=== PATIENT | male | born 1965 | race Caucasian/White ===

== ENCOUNTER 2018-10-22 14:09 | Emergency (ER) | payer OTHER, SELFPAY ==
[2018-10-22 14:17] VITALS: BP 122/77; PULSE 80; RESP 18; TEMP 36.7; O2SAT 95
--- NOTE | 2018-10-22 15:45 | ED.GENADUL_ITS ---
Discharge Plan Disposition Patient Disposition: HOME Condition: Stable Discharge Details Chief Complaint: Cellulitis Clinical Impression: Acute anal fissure Primary Care Provider: Trent Herron ED Provider: Lois Gordillo Home Meds and New Rx's Prescriptions: New pramoxine [Proctofoam] 1 % foam 1 applic [place] BID Qty: 15 RF: 0 amoxicillin-pot clavulanate [Augmentin] 875-125 mg tablet 1 tab PO BID 10 Days Qty: 20 RF: 0 docusate sodium [Colace] 100 mg capsule 100 mg PO BID Qty: 10 RF: 0 Continue omeprazole magnesium [Prilosec OTC] 20 MG tablet,delayed release (DR/EC) 20 mg PO DAILY RF: 0 lisinopril 10 mg tablet 10 mg PO DAILY Qty: 90 RF: 4 epinephrine 0.3 MG/SYR auto-injector 0.3 mg IJ PRN PRN (Reason: Anaphylaxis) Qty: 1 RF: 0 Discharge Instructions Instructions: Anal Fissure (ED) Additional Instructions: Keep area as clean and dry as possible. Apply the Proctofoam as directed. If you develop any worsening pain, redness, swelling or fever, start the oral antibiotics or return immediately to the emergency department. Follow-up with your scheduled appointment with your primary care doctor on Wednesday. Call surgery Dr. Knott Wednesday morning to schedule follow-up appointment for reevaluation as needed. Discharge Data Discharge Date/Time-TO BE ENTERED AT DEPARTURE: 10/22/18 15:56 Discharge Physician: Lois Gordillo Medical Decision Making 53-year-old male with a history of anal fissures and external thrombosed hemorrhoids who presents with anal fissure and rectal pain for the past 2 weeks. Vitals within normal limits. Afebrile. Patient appears nontoxic. Abdomen soft and nontender. There is a 4 mm fissure with surrounding mild edema and tenderness to palpation but no obvious induration, fluctuance, red streaking. No hemorrhoids noted. No rectal bleeding or pus noted. There is a slight whitish clearish mucousy discharge noted when palpating the anal fissure area. Patient does not want lab work or CAT scan. Patient states he is only requesting evaluation and would like a prescription for Proctofoam and has appointment with his primary care doctor on Wednesday. Discussed with patient that as he had some discharge a few days ago, concern would be for deeper space infection. However patient appears nontoxic, is afebrile, and has no evidence of abscess or cellulitis around site, so we engaged in a shared decision making process that this plan is reasonable at this time. Will call surgery for recommendations. Discussed with lili Warren -agrees with plan for Proctofoam and does not see utility of oral antibiotics at this time. Recommends follow-up with surgery. We will send home with prescription for Colace and Proctofoam. Patient was instructed to return here immediately with any worsening symptoms. Pt states he is traveling to [place] in the next 2 weeks. He is also given a prescription for Augmentin to start if he has any mild signs of infection and is unable or does not want to return to the emergency department. HPI General Mode of arrival: ambulatory . Date/Time Provider Initiated Documentation: 10/22/18 14:39 . Limitations to Documentation: no limitations . Information obtained by: patient . HPI Narrative: Patient is a 53-year-old male with a history of chronic anal fissures who presents for rectal pain for the past 2 weeks. Patient states he was getting in and out of his truck and lifting and carrying things when he felt sudden rectal pain 2 weeks ago. Patient states he has had consistent pain since then and worse over the past few days. Patient states he has seen his primary care doctor and surgery for this for years and has had hemorrhoidectomy with Dr. Knott as well. Patient states the pain extends from the external area up into his tailbone. He states he has been having small bowel movements but with pain. He is not taking any stool softeners. He admits to some bloody mucus that is noted at times. Patient states he sat in a tub with epsom salts the other day to help with his symptoms and noted some blood and possible white discharge. Patient states he has been eating and drinking well. He also admits to some mild lower abdominal pain for the past 3 days. He denies any known fever or urinary symptoms. He states he has an appointment with his primary care doctor on Wednesday but did not want to wait till then. Patient states he just feels like he needs a prescription for Proctofoam to help with the pain Related Data Home Medications Medication Instructions Recorded Confirmed epinephrine 0.3 mg IJ PRN PRN #1 kit 10/26/16 10/22/18 omeprazole magnesium [Prilosec OTC] 20 mg PO DAILY 12/25/16 10/22/18 lisinopril 10 mg tablet 10 mg PO DAILY #90 tab-cap 18 10/22/18 amoxicillin-pot clavulanate 1 tab PO BID 10 Days #20 tab 10/22/18 [Augmentin] docusate sodium [Colace] 100 mg PO BID #10 cap 10/22/18 pramoxine [Proctofoam] 1 applic [place] BID #15 gm 10/22/18 Previous Rx's Medication Instructions Recorded epinephrine 0.3 mg IJ PRN PRN #1 kit 10/26/16 lisinopril 10 mg tablet 10 mg PO DAILY #90 tab-cap 08/09/18 amoxicillin-pot clavulanate 1 tab PO BID 10 Days #20 tab 10/22/18 [Augmentin] docusate sodium [Colace] 100 mg PO BID #10 cap 10/22/18 pramoxine [Proctofoam] 1 applic MT BID #15 gm 10/22/18 Allergies Allergy/AdvReac Type Severity Reaction Status Date / Time shellfish derived Allergy Unknown Unverified 10/22/18 14:20 General Stated Complaint: Cellulitis ALMAZ: 3 Review of Systems Review of Systems All systems reviewed & are unremarkable except as noted in HPI and below Constitutional Reports as per HPI, Denies chills and Denies fever(s) Eyes Denies blurry vision ENT Denies dizziness, Denies sore throat and Denies throat swelling Cardiovascular Denies chest pain and Denies dyspnea Respiratory Denies dyspnea Gastrointestinal Reports abdominal pain, Denies diarrhea and Denies vomiting Genitourinary Denies hematuria and Denies dysuria Musculoskeletal Denies back pain and Denies numbness Integumentary/Breasts Denies lesions and Denies rash Neurologic Denies dizziness and Denies numbness Allergic/Immunologic Denies throat swelling PFSH GERD (gastroesophageal reflux disease) (Chronic) HTN (hypertension) (Chronic) Repair of umbilical hernia Spinal Fusion (~2006) Tonsillectomy and adenoidectomy Medical History GERD (gastroesophageal reflux disease) (Chronic) HTN (hypertension) (Chronic) Social History Smoking/Tobacco Use Status: Current-Occasional Surgical History Repair of umbilical hernia Spinal Fusion (~2006) Tonsillectomy and adenoidectomy Social History Smoking/Tobacco Use Status: Current-Occasional Exam Const General: cooperative, healthy appearing and no acute distress HENMT Head: normal to inspection Mouth: oral mucosae normal Eyes General: appearance normal, both eyes and all related structures Neck Neck: normal visual inspection Resp Effort & Inspection: normal respiratory effort and able to speak in complete sentences Auscultation: clear to auscultation bilaterally Cardio Rate: regular rate Rhythm: regular rhythm GI Palpation: soft, not firm and nontender Auscultation: normal bowel sounds Rectal Exam: normal sphincter tone (pain with limited digital exam just inside anal margin. ), fissure (3-4 mm fissure noted to the right of midline around anus. There is very mild surrounding edema but no erythema, fluctuance, induration or obvious abscess. When palpating the area around the fistula, there is noted to be a minimal white discharge but no obvious pus. No hemorrhoids. ) and other (stool color brown) Penis: normal penis Scrotum: scrotum normal Testes: normal Skin General skin exam: no rashes or lesions noted Neuro General: alert, awake and oriented x3 Motor: muscle tone normal throughout Extrem General: normal to inspection and full ROM Psych Appearance: grossly normal Affect: normal affect Course Vital Signs Temperature 98.1 F 10/22/18 14:17 Pulse 80 10/22/18 14:17 Respiratory Rate 18 10/22/18 14:17 Blood Pressure 122/77 10/22/18 14:17 Pulse Oximetry 95 10/22/18 14:17 Temperature 98.1 F 10/22/18 14:17 Temperature Source Skin 10/22/18 14:17 Pulse 80 10/22/18 14:17 Respiratory Rate 18 10/22/18 14:17 Blood Pressure 122/77 10/22/18 14:17 Blood Pressure Position Sitting 10/22/18 14:17 Pulse Oximetry 95 10/22/18 14:17 Oxygen Delivery Method Room Air 10/22/18 14:17 Oxygen Flow Rate 0 10/22/18 14:17 Pain Level 6 10/22/18 14:17 Comment 10/22/18 14:17
== END 2018-10-22 15:56 | disposition home or self-care (01) ==
PROVIDERS: Emergency Provider Physician Assistant; PCP Emergency Medicine
DX: K60.0 Acute anal fissure (principal); I10 Essential (primary) hypertension
CPT/HCPCS: 99283

== ENCOUNTER 2019-01-04 08:49 | Day surgery (SDC) | payer OTHER, SELFPAY ==
--- NOTE | 2019-01-04 06:57 | W.COLOREPORT ---
Date of service: 01/04/19 Time of Service: 10:00 Colonoscopy Report Date of procedure: 01/04/19 Pre-op diagnosis general: Colon Cancer screening/ foreign body? Post-op diagnosis procedure note: same Procedure: 1. Colonoscopy 2. Anal foreign body ? stitch Surgeon: Kate Wiley Anesthesia proc note operative: other (general) Estimated blood loss (mL): 5 Pathology: none sent Complications: None Disposition: same day Indications: Mr. aKy was seen in the office for a screening colonoscopy. He also has an area at the anal verge that swells up every so often and is painfull. He underwent a hemorrhoidectomy with Dr. whitmore. There is ? whether maybe there is a stitch that never dissolved. I will look for it after his colonoscopy. Risks, benefits and complications have been reviewed. Complications include but are not limited to bleeding, pain, perforation, missed small lesion/polyp, sore throat, aspiration and adverse reaction to the medications. Questions were entertained and answered to their satisfaction and they wished to proceed. No guarantees were given or implied. Prep: Miralax/Dulcolax Procedure Start Time: 10:00 Procedure End Time: 10:18 Retraction Time: 9 minutes Findings: Normal colonoscopy Scar tissue vs small stitch at the anal verge here he had his hemorrhoidectomy. Procedure Description: After informed consent was obtained the patient was taken to the procedure room and placed in a left decubitous position. Monitors were applied and a time out was done. The patients name, date of , procedure, allergies to medications and metal in their body was reviewed. The patient was then sedated. Once sedated and comfortable 6 cc of experel was injected in the area of scarring and nodule. Next a rectal exam was done. External exam was normal. Internal exam revealed a normal sphincter tone and no palpable masses. The prostate was smooth. The scope was then introduced and retro-flexed. No internal hemorrhoids were identified. The scope was then advanced to the cecum with some difficulty due to some tortuousity. The TI and appendiceal orifice were identified. The prep was good. The scope was then slowly retracted over 9 minutes back into the rectum. No polyps noted and no diverticulosis. The scope was removed. The nodule was palpated and an elliptical incision was made around it. I felt what I think was a stitch and removed it with scissors. I then felt around and couldn't feel anything else. The wound was closed with 3-0 cat gut to make sure that it will dissolve rapidly. The skin was cleaned and dried and the patient was woken up and taken back to Same day surgery in stable condition. The patient tolerated the procedure well and there were no immediate complications. Follow up: The patient should follow up in 10 years unless they develop changes in bowel habits or other new gastrointestinal complaints.
--- NOTE | 2019-01-04 07:02 | PDOC.DSDIS_ITS ---
Discharge Plan Disposition Patient Disposition: HOME Condition: Good Discharge Details Reason For Visit: Colon Cancer screening/ anal foreign body Attending Provider: Kate Wiley Primary Care Provider: Trent Herron Home Meds and New Rx's Prescriptions: Continued psyllium husk [Metamucil] 0.52 gram capsule 0.52 gm PO DAILY RF: 0 Prilosec OTC 20 MG tablet,delayed release (DR/EC) 20 mg PO DAILY RF: 0 lisinopril 10 mg tablet 10 mg PO DAILY Qty: 90 RF: 4 pramoxine [Proctofoam] 1 % foam 1 applic [place] BID Qty: 15 RF: 3 epinephrine 0.3 MG/SYR auto-injector 0.3 mg IJ PRN PRN (Reason: Anaphylaxis) Qty: 1 RF: 0 docusate sodium [Colace] 100 mg capsule 100 mg PO BID PRNRF: 0 cannabidiol (CBD) extract 100 mg/mL Solution 100 mg PO DAILY RF: 0 Discontinued polyethylene glycol 3350 17 gram powder in packet 255 g PO DAILY Qty: 15 RF: 0 bisacodyl [Dulcolax (bisacodyl)] 5 mg tablet,delayed release (DR/EC) 5 mg PO ONCE Qty: 4 RF: 0 Discharge Instructions Instructions: Colonoscopy (DC) Additional Instructions: Findings: normal large bowel Scar tissue vs small stitch Follow up: 10 years for your next colonoscopy 4 weeks in the office Other: sitz baths for pain Ibuprofen 600 mg very 6 hours as needed, may alternate with Tylenol 650 mg every 6 hours Please call if you develop: fevers >101.5 Nausea or Vomiting Abdominal pain that is not transient DAY SURGERY UNIT POST COLONOSCOPY INSTRUCTIONS 1. Because there will be medication in your system for the next 24 hours, you may feel a little sleepy. Your coordination will be affected. Therefore: a. Do not drive or operate dangerous equipment for 24 hours. b. Do not drink alcohol beverages for 24 hours (not even beer). c. Plan to go home and rest for the day. 2. Generally there are no restrictions on your activity after a day or so has gone by, but you may feel a bit fatigued for a few days. 3 After you arrive home you may have a light meal and return to a normal diet as you can tolerate it without feeling sick to your stomach. 4. After surgery, you may feel pain or discomfort. This should be only transient, but if it persists please contact your doctor. 5. If there are any questions regarding the findings of your procedure, please feel free to contact your doctor. 6. If you are unable to contact your doctor with a problem, contact the hospital at [phone]. 7. Continue all your regular medications unless directed otherwise. I understand the above instructions and have no questions. Signature of Patient or Responsible Adult Escort Date/Time Name of Responsible Adult Escort Signature of Nurse Date/Time Referrals: Kate iWley MD [ [facility] STAFF PHYSICIAN] - 01/31/19 1:00 pm Activity:: Activity as Tolerated Diet:: As Tolerated Discharge Orders Discharge Orders: Discharge Order (Routine); Ordered 01/04/19 Ordered By: Kate Wiley DS: Diagnosis Discharge Diagnosis (1) S/P colonoscopy: Status: Acute (2) Foreign body (FB) in soft tissue: Status: Acute
[2019-01-04 09:00] VITALS: BP 145/97; PULSE 69; RESP 20; TEMP 36.2; O2SAT 95
[2019-01-04] MEDS: Lactated Ringers 1,000 ML 80 ML IV (09:26)
[2019-01-04] MEDS: MetroNIDAZOLE 500 MG/100 ML BAG 100 MG IVPB (09:27)
[2019-01-04] MEDS: Bupivacaine LIPOSOME/PF 133 MG/10 ML VIAL IJ ×2 (09:59→10:28)
[2019-01-04 11:10] VITALS: BP 92/46; PULSE 51; RESP 20; TEMP 36.6; O2SAT 98
[2019-01-04 11:15] VITALS: BP 99/52; PULSE 55; RESP 22; O2SAT 94
[2019-01-04 11:30] VITALS: BP 108/67; PULSE 74
[2019-01-04 11:51] VITALS: BP 126/81; PULSE 84; RESP 20; TEMP 36.3; O2SAT 99
== END 2019-01-04 12:30 | disposition home or self-care (01) ==
PROVIDERS: PCP Emergency Medicine; Visit Provider Surgery
PROC: 0DJD8ZZ Inspection of Lower Intestinal Tract, Via Natural or Artificial Opening Endoscopic (ICD-10-PCS; CPT 45378; principal; 2019-01-04 09:45)
DX: Z12.11 Encounter for screening for malignant neoplasm of colon (principal); M79.5 Residual foreign body in soft tissue
CPT/HCPCS: 46922; 45378; J0360; J2250

== ENCOUNTER 2019-01-08 08:54 | Emergency (ER) | payer OTHER, SELFPAY ==
[2019-01-08 09:14] VITALS: BP 156/95; PULSE 72; RESP 20; TEMP 36.8
--- NOTE | 2019-01-08 09:56 | DI.CT_ITS ---
SYMPTOMS/DIAGNOSIS: RECTAL PAIN, ? ABSCESS CT OF THE ABDOMEN AND PELVIS: Images were performed from the lung bases through the ischial tuberosities after IV and without oral contrast. The lung bases are clear. There is mild fatty infiltration of the liver. The visualized portions of the heart are unremarkable. The gallbladder, spleen, pancreas and adrenals are unremarkable. There are bilateral renal cysts. There is no bowel dilatation or inflammatory change. There is no evidence of free air or free fluid. There is no evidence of an abscess. The aorta is normal in diameter. No adenopathy is seen. There is L5 spondylolysis and grade 1 L5-S1 spondylolisthesis. There is a chronic- appearing compression fracture of T10. The bladder is nearly empty. The prostate does not appear enlarged. IMPRESSION: No acute abnormality.
--- NOTE | 2019-01-08 09:58 | W.ED.GENAD ---
Discharge Plan Disposition Patient Disposition: HOME Condition: Stable Discharge Details Chief Complaint: GI Bleed Clinical Impression: Pain, rectal Primary Care Provider: Trent Herron ED Provider: Kike Hoffman Home Meds and New Rx's Prescriptions: New lidocaine 4 % cream 1 applic TP QID PRN (Reason: pain) Qty: 25 RF: 0 Continued psyllium husk [Metamucil] 0.52 gram capsule 0.52 gm PO DAILY RF: 0 Prilosec OTC 20 MG tablet,delayed release (DR/EC) 20 mg PO DAILY RF: 0 lisinopril 10 mg tablet 10 mg PO DAILY Qty: 90 RF: 4 pramoxine [Proctofoam] 1 % foam 1 applic [place] BID Qty: 15 RF: 3 epinephrine 0.3 MG/SYR auto-injector 0.3 mg IJ PRN PRN (Reason: Anaphylaxis) Qty: 1 RF: 0 docusate sodium [Colace] 100 mg capsule 100 mg PO BID PRNRF: 0 cannabidiol (CBD) extract 100 mg/mL Solution 100 mg PO DAILY RF: 0 Discharge Instructions Additional Instructions: continue to perform sitz baths. You can use 1000mg tylenol and 600mg ibuprofen every 6 hours for pain as needed Follow up with general surgery who performed your colonoscopy If you develop fevers, severe abdominal pain or significant rectal bleeding return to the emergency department Medical Decision Making 53 yo male has had chronic issues with discharge from his rectum. Had a hemorrhoidectomy in 2017 and thinks that this is when it all started. He had a colonoscopy this past week with Dr. Rose where it says she removed a stitch at the rectum. He has had pain at the rectum since. He has a small 1mm incision with brown drainage at the rectum. No hemorrhoids, no internal abnormalities palpated and no abdominal tenderness, guaic negative. I suspect small abscess vs fistual. Will obtain ct to eval for possible deeper abscess labs and imaging unremarkable, he states lidocaine significantly improved his pain. will prescribe this and have him f/u with surgery as outpatient, return precautions given. given no fever, no leukocytosis or erythema will hold on abx at this time Differential Diagnosis abscess, fissure, hemorrhoid HPI General Mode of arrival: ambulatory. Date/Time Provider Initiated Documentation: 01/08/19 09:23. Limitations to Documentation: no limitations. Information obtained by: patient. History of Present Illness 53 year old M presents to the emergency department with the chief complaint of rectal pain, described as moderate, with intensity rated at 5. Quality is described as aching, Patient started experiencing this week(s) (2) and it has been constant. No relieving factors improve symptom(s), No exacerbating factors reported . Patient notes no other symptoms.. Patient did receive the following treatments prior to arrival, none Related Data Home Medications Medication Instructions Recorded Confirmed epinephrine 0.3 mg IJ PRN PRN #1 kit 10/26/16 01/08/19 Prilosec OTC 20 mg PO DAILY 12/25/16 01/08/19 lisinopril 10 mg tablet 10 mg PO DAILY #90 tab-cap 08/09/18 01/08/19 psyllium husk 0.52 gram capsule 0.52 gm PO DAILY 11/21/18 01/08/19 pramoxine 1 % topical foam 1 applic [place] BID #15 gm 11/25/18 01/08/19 docusate sodium [Colace] 100 mg PO BID PRN 12/30/18 01/08/19 cannabidiol (CBD) extract 100 mg PO DAILY 01/04/19 01/08/19 lidocaine 1 applic TP QID PRN #25 gm 01/08/19 Previous Rx's Medication Instructions Recorded epinephrine 0.3 mg IJ PRN PRN #1 kit 10/26/16 lisinopril 10 mg tablet 10 mg PO DAILY #90 tab-cap 08/09/18 pramoxine 1 % topical foam 1 applic [place] BID #15 gm 11/25/18 lidocaine 1 applic TP QID PRN #25 gm 01/08/19 Allergies Allergy/AdvReac Type Severity Reaction Status Date / Time shellfish derived Allergy Unknown Verified 01/08/19 09:18 General Stated Complaint: GI Bleed ALMAZ: 3 Review of Systems Review of Systems All systems reviewed & are unremarkable except as noted in HPI and below Constitutional Denies chills, Denies fever(s) and Denies weakness ENT Denies change in voice Cardiovascular Denies chest pain and Denies dyspnea Respiratory Denies cough and Denies dyspnea Gastrointestinal Denies abdominal pain, Denies nausea and Denies vomiting Musculoskeletal Denies joint swelling Neurologic Denies weakness Allergic/Immunologic Denies urticaria [facility] Medical History Foreign body (FB) in soft tissue (Acute ~01/04/19) H/O hemorrhoids (Acute) GERD (gastroesophageal reflux disease) (Chronic) HTN (hypertension) (Chronic) Surgical History S/P colonoscopy (Acute ~01/04/19) S/P hemorrhoidectomy (Acute) Repair of umbilical hernia Spinal Fusion (~2006) Tonsillectomy and adenoidectomy Social History 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 occupational status: employed 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 Smoking and Tabacco status: Former Tobacco Use alcohol intake: current alcohol intake frequency: a few times a month Alcohol type: beer substance use type: does not use Exam Const General: no acute distress Orientation: alert HENMT Head: normal to inspection Ears: external ears normal General nose exam: external nose normal Mouth: moist mucous membranes Eyes General: appearance normal, both eyes and all related structures Neck Neck: normal visual inspection Resp Effort & Inspection: normal respiratory effort and able to speak in complete sentences Cardio Rate: regular rate GI Inspection: normal to inspection Palpation: soft Skin General skin exam: no rashes or lesions noted Neuro General: alert and oriented x3 Extrem General: normal to inspection Psych Mental Status: mental status grossly normal Course Vital Signs Temperature 36.8 C 01/08/19 09:14 Pulse 72 01/08/19 09:14 Respiratory Rate 20 01/08/19 09:14 Blood Pressure 156/95 H 01/08/19 09:14 Temperature 36.8 C 01/08/19 09:14 Temperature Source Temporal Artery Scan 01/08/19 09:14 Pulse 72 01/08/19 09:14 Respiratory Rate 20 01/08/19 09:14 Respiratory Effort Non-Labored 01/08/19 09:14 Blood Pressure 156/95 H 01/08/19 09:14 Blood Pressure Position Standing 01/08/19 09:14 Oxygen Delivery Method Room Air 01/08/19 09:14 Oxygen Flow Rate 0 01/08/19 09:14 Pain Level 6 01/08/19 09:18
--- NOTE | 2019-01-08 10:02 | ED.GENADUL_ITS ---
Discharge Plan Disposition Patient Disposition: HOME Condition: Stable Discharge Details Chief Complaint: GI Bleed Clinical Impression: Pain, rectal Primary Care Provider: Trent Herron ED Provider: Kike Hoffman Home Meds and New Rx's Prescriptions: New lidocaine 4 % cream 1 applic TP QID PRN (Reason: pain) Qty: 25 RF: 0 Continued psyllium husk [Metamucil] 0.52 gram capsule 0.52 gm PO DAILY RF: 0 Prilosec OTC 20 MG tablet,delayed release (DR/EC) 20 mg PO DAILY RF: 0 lisinopril 10 mg tablet 10 mg PO DAILY Qty: 90 RF: 4 pramoxine [Proctofoam] 1 % foam 1 applic TN BID Qty: 15 RF: 3 epinephrine 0.3 MG/SYR auto-injector 0.3 mg IJ PRN PRN (Reason: Anaphylaxis) Qty: 1 RF: 0 docusate sodium [Colace] 100 mg capsule 100 mg PO BID PRNRF: 0 cannabidiol (CBD) extract 100 mg/mL Solution 100 mg PO DAILY RF: 0 Discharge Instructions Additional Instructions: continue to perform sitz baths. You can use 1000mg tylenol and 600mg ibuprofen every 6 hours for pain as needed Follow up with general surgery who performed your colonoscopy If you develop fevers, severe abdominal pain or significant rectal bleeding return to the emergency department Medical Decision Making 53 yo male has had chronic issues with discharge from his rectum. Had a hemorrhoidectomy in 2017 and thinks that this is when it all started. He had a colonoscopy this past week with Dr. Rose where it says she removed a stitch at the rectum. He has had pain at the rectum since. He has a small 1mm incision with brown drainage at the rectum. No hemorrhoids, no internal abnormalities palpated and no abdominal tenderness, guaic negative. I suspect small abscess vs fistual. Will obtain ct to eval for possible deeper abscess labs and imaging unremarkable, he states lidocaine significantly improved his pain. will prescribe this and have him f/u with surgery as outpatient, return precautions given. given no fever, no leukocytosis or erythema will hold on abx at this time Differential Diagnosis abscess, fissure, hemorrhoid HPI General Mode of arrival: ambulatory . Date/Time Provider Initiated Documentation: 01/08/19 09:23 . Limitations to Documentation: no limitations . Information obtained by: patient . History of Present Illness 53 year old M presents to the emergency department with the chief complaint of rectal pain, described as moderate, with intensity rated at 5. Quality is described as aching, Patient started experiencing this week(s) (2) and it has been constant. No relieving factors improve symptom(s), No exacerbating factors reported . Patient notes no other symptoms.. Patient did receive the following treatments prior to arrival, none Related Data Home Medications Medication Instructions Recorded Confirmed epinephrine 0.3 mg IJ PRN PRN #1 kit 10/26/16 01/08/19 Prilosec OTC 20 mg PO DAILY 12/25/16 01/08/19 lisinopril 10 mg tablet 10 mg PO DAILY #90 tab-cap 08/09/18 01/08/19 psyllium husk 0.52 gram capsule 0.52 gm PO DAILY 11/21/18 01/08/19 pramoxine 1 % topical foam 1 applic TN BID #15 gm 11/25/18 01/08/19 docusate sodium [Colace] 100 mg PO BID PRN 12/30/18 01/08/19 cannabidiol (CBD) extract 100 mg PO DAILY 01/04/19 01/08/19 lidocaine 1 applic TP QID PRN #25 gm 01/08/19 Previous Rx's Medication Instructions Recorded epinephrine 0.3 mg IJ PRN PRN #1 kit 10/26/16 lisinopril 10 mg tablet 10 mg PO DAILY #90 tab-cap 08/09/18 pramoxine 1 % topical foam 1 applic TN BID #15 gm 11/25/18 lidocaine 1 applic TP QID PRN #25 gm 01/08/19 Allergies Allergy/AdvReac Type Severity Reaction Status Date / Time shellfish derived Allergy Unknown Verified 01/08/19 09:18 General Stated Complaint: GI Bleed ALMAZ: 3 Review of Systems Review of Systems All systems reviewed & are unremarkable except as noted in HPI and below Constitutional Denies chills, Denies fever(s) and Denies weakness ENT Denies change in voice Cardiovascular Denies chest pain and Denies dyspnea Respiratory Denies cough and Denies dyspnea Gastrointestinal Denies abdominal pain, Denies nausea and Denies vomiting Musculoskeletal Denies joint swelling Neurologic Denies weakness Allergic/Immunologic Denies urticaria [facility] Medical History Foreign body (FB) in soft tissue (Acute ~01/04/19) H/O hemorrhoids (Acute) GERD (gastroesophageal reflux disease) (Chronic) HTN (hypertension) (Chronic) Surgical History S/P colonoscopy (Acute ~01/04/19) S/P hemorrhoidectomy (Acute) Repair of umbilical hernia Spinal Fusion (~2006) Tonsillectomy and adenoidectomy Social History current occupational status: employed 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 Smoking and Tabacco status: Former Tobacco Use alcohol intake: current alcohol intake frequency: a few times a month Alcohol type: beer substance use type: does not use Exam Const General: no acute distress Orientation: alert HENMT Head: normal to inspection Ears: external ears normal General nose exam: external nose normal Mouth: moist mucous membranes Eyes General: appearance normal, both eyes and all related structures Neck Neck: normal visual inspection Resp Effort & Inspection: normal respiratory effort and able to speak in complete sentences Cardio Rate: regular rate GI Inspection: normal to inspection Palpation: soft Skin General skin exam: no rashes or lesions noted Neuro General: alert and oriented x3 Extrem General: normal to inspection Psych Mental Status: mental status grossly normal Course Vital Signs Temperature 36.8 C 01/08/19 09:14 Pulse 72 01/08/19 09:14 Respiratory Rate 20 01/08/19 09:14 Blood Pressure 156/95 H 01/08/19 09:14 Temperature 36.8 C 01/08/19 09:14 Temperature Source Temporal Artery Scan 01/08/19 09:14 Pulse 72 01/08/19 09:14 Respiratory Rate 20 01/08/19 09:14 Respiratory Effort Non-Labored 01/08/19 09:14 Blood Pressure 156/95 H 01/08/19 09:14 Blood Pressure Position Standing 01/08/19 09:14 Oxygen Delivery Method Room Air 01/08/19 09:14 Oxygen Flow Rate 0 01/08/19 09:14 Pain Level 6 01/08/19 09:18
[2019-01-08 10:18] LABS: Abs Immature Grans 0.02 k/cumm (0.0-0.09); Absolute Basophil Count 0.06 k/cumm (0.0-0.2); Absolute Eosinophil Count 0.31 k/cumm (0.0-0.7); Absolute Lymphocyte Count 2.27 k/cumm (1.2-3.4); Absolute Monocyte Count 0.72 k/cumm (0.11-0.7); Absolute Neutrophil Count 3.89 k/cumm (1.2-6.7); Basophils % 0.8; Eosinophils % 4.3; HCT 44.2 % (40.0-50.0); HGB 14.9 g/dL (13.5-17.5); Immature Grans % 0.3; Lymphocytes % 31.2; Mean Corp. HGB Concentration 33.7 g/dL (32.0-36.0); Mean Corpuscular Hemoglobin 29.7 pg (27.0-33.0); Mean Corpuscular Volume 88.2 fL (80-95); Mean Platelet Volume 9.9 fL (8.0-11.0); Monocytes % 9.9; Neutrophils % 53.5; Platelet Count 241 x1000/uL (130-400); RBC 5.01 m/cumm (4.50-6.00); RBC Distribution Width 13.4 % (11.8-14.1); White Blood Cell Count 7.27 k/cumm (4.4-10.8)
[2019-01-08] MEDS: Lidocaine 4% Cream 5 GM TUBE TP (10:23)
[2019-01-08 10:26] LABS: ALT 26 U/L (12-78); AST 12 U/L (15-37); Albumin 3.3 g/dL (3.4-5.0); Alkaline Phosphatase 89 U/L (46-116); Anion Gap 7.4 mmol/L (3-11); BUN 14 mg/dL (7-18); Bilirubin, Total 0.3 mg/dL (0.2-1.0); CO2 29.6 mmol/L (21.0-32.0); CREATININE 0.86 mg/dL (0.70-1.30); Calcium 8.3 mg/dL (8.5-10.1); Chloride 105 mmol/L (98-107); Glucose 95 mg/dL (70-100); Potassium 4.2 mmol/L (3.5-5.1); Sodium 142 mmol/L (136-145); Total Protein 7.2 g/dL (6.4-8.2)
[2019-01-08 10:28] LABS: PTT Activated 24.3 sec (21.0-31.4); Prothrombin Time 9.6 sec (9.3-11.0)
[2019-01-08] MEDS: Omnipaque 350 MG/ML 100 ML BTL IV (10:42)
--- NOTE | 2019-01-08 11:09 | DI.VRAD_ITS ---
EXAM: CT Abdomen and Pelvis With Contrast EXAM DATE/TIME: 01/08/2019 9:56 AM CLINICAL HISTORY: 53 years old, male; Signs and symptoms; Other: Rectal pain? Abscess; Prior surgery; Surgery date: 3-7 days post-operative; Surgery type: Colonoscopy TECHNIQUE: Axial computed tomography images of the abdomen and pelvis with intravenous contrast. All CT scans at this facility use at least one of these dose optimization techniques: automated exposure control; mA and/or kV adjustment per patient size (includes targeted exams where dose is matched to clinical indication); or iterative reconstruction. Coronal and sagittal reformatted images were created and reviewed. CONTRAST: Contrast Material: 125 ml of omnipaque 350; Contrast Route: iv COMPARISON: CT RENAL COLIC WO CONTRAST 08/06/2014 3:58 PM FINDINGS: Lower thorax: The visualized lung bases are clear. ABDOMEN: Liver: The liver is mildly fatty in density. It appears otherwise unremarkable. Gallbladder and bile ducts: No gallstones are evident, but ultrasound would be more sensitive. No gross biliary ductal dilatation. Pancreas: Normal. No ductal dilation. Spleen: Normal. No splenomegaly. Adrenals: Normal. No mass. Kidneys and ureters: There are again bilateral renal cysts. The kidneys appear otherwise unremarkable. Stomach and bowel: The unopacified small bowel is not significantly distended to suggest obstruction. The large bowel is grossly unremarkable in appearance. Appendix: The appendix is not identified, but there are no inflammatory changes in its expected region. PELVIS: Bladder: Unremarkable as visualized. Reproductive: Unremarkable as visualized. ABDOMEN and PELVIS: Intraperitoneal space: Normal. No free air. No significant fluid collection. Bones/joints: Degenerative again spine, hips and sacroiliac joints. There is similar spondylolisthesis at L5-S1 with chronic bilateral spondylolysis at L5. Soft tissues: There is a similar small fat containing left inguinal hernia. Vasculature: The abdominal aorta is nonaneurysmal. The left renal vein is noted to be retroaortic. Atherosclerotic vascular calcifications are again present. Lymph nodes: Normal. No enlarged lymph nodes. IMPRESSION: No acute abnormality. Nonurgent findings are as above. Dictated and Authenticated by: Kike Pardo MD. Ordering:MARV Stokes MD
--- NOTE | 2019-01-08 15:02 | NUR.NOTE ---
IV d/c'd at discharge.Nursing Note:
--- NOTE | 2019-01-09 08:25 | PDOC.ERCMPRO ---
Care Management Progress Note 01/09-Dr. Hoffman requested with a surgical f/u this week for rectal pain and discharge, s/p colonoscopy 2-3 days ago. Referral faxed to [facility] this am.
== END 2019-01-08 11:19 | disposition home or self-care (01) ==
PROVIDERS: Emergency Provider Emergency Medicine; PCP Emergency Medicine
DX: K62.89 Other specified diseases of anus and rectum (principal); S36.63XA Laceration of rectum, initial encounter; X58.XXXA Exposure to other specified factors, initial encounter
CPT/HCPCS: 36415; 80053; 86850; 86900; 86901; 99285; 74177; 83735; 85025; 85610; 85730; 99284; J3490

== ENCOUNTER 2019-07-04 10:58 | Emergency (ER) | payer OTHER, SELFPAY ==
[2019-07-04] VITALS (38 sets, daily range): BP systolic 145–170; BP diastolic 78–107; PULSE 64–91; RESP 12–22; TEMP 37; O2SAT 95–98
--- NOTE | 2019-07-04 11:40 | W.ED.GENAD ---
Discharge Plan Disposition Patient Disposition: HOME Condition: Improving Discharge Details Chief Complaint: Chest Pain Clinical Impression: Chronic sinusitis, Strain of thoracic back region, Chest wall muscle strain Primary Care Provider: Trent Herron ED Provider: Lois Gordillo Home Meds and New Rx's Prescriptions: New amoxicillin-pot clavulanate [Augmentin] 875-125 mg tablet 1 tab PO BID 10 Days Qty: 20 RF: 0 fluticasone propionate [Flonase Allergy Relief] 50 mcg/actuation spray,suspension 1 spray RADHA DAILY Qty: 16 RF: 0 lidocaine [Lidoderm] 5 % adhesive patch,medicated 1 patch TP DAILY Qty: 15 RF: 0 Continued Prilosec OTC 20 MG tablet,delayed release (DR/EC) 20 mg PO DAILY RF: 0 lisinopril 10 mg tablet 10 mg PO DAILY Qty: 90 RF: 4 epinephrine 0.3 MG/SYR auto-injector 0.3 mg IJ PRN PRN (Reason: Anaphylaxis) Qty: 1 RF: 0 Discharge Instructions Instructions: Muscle Strain (ED), Sinusitis (ED) Additional Instructions: Drink plenty of fluids and get plenty of rest. Alternate Tylenol and Motrin as needed and directed for pain. If you have no relief or worsening of your sinus symptoms, you may start the antibiotics. Call your primary care doctor today to schedule follow-up appointment for reevaluation within the next week. Return immediately to the emergency department if you develop any worsening or new concerning symptoms. Discharge Data Discharge Date/Time-TO BE ENTERED AT DEPARTURE: 07/04/19 15:56 Discharge Physician: Lois Gordillo Medical Decision Making 1145 -- 53-year-old male with a history of GERD, hypertension and spinal fusion who presents with multiple complaints, mainly sinus congestion and facial pain and headache in addition to back and chest pain for the past week. He also admits to taking multiple energy drinks as well as 5-hour energy shots. 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 He has no DVT/PE risk factors. Blood pressure mildly hypertensive, otherwise vitals within normal limits. He appears mildly uncomfortable but nontoxic. He has sinus tenderness but no focal deficits. His bilateral paraspinal thoracic region is tender to touch. Abdomen soft nontender. EKG on arrival notes a rate of 78, sinus, no acute ST elevation or depression. Considering patient's age and complaint, cardiac work-up ordered on arrival. In triage he only complained of chest pain. Upon my assessment he stated his main complaint was the sinus congestion, facial pain and headache. Different diagnosis includes sinusitis, dehydration, electrolyte abnormality, thoracic strain, chest wall strain, ACS. Presentation does not appear consistent with PE. As his back and chest pain is reproducible and tender, does not appear consistent with ACS. Will give IV fluids, CT head and if negative, give a dose of Decadron, Toradol and Compazine. Labs and imaging reviewed. White blood cell count 11. D-dimer negative. Troponin negative. Chest x-ray negative. CT head notes mild chronic sinusitis 1430 -- Patient feels much better and is requesting to go home. He denies any headache or chest pain at this time. Discussed with patient that his symptoms could be due to his excessive caffeine intake in addition to dehydration and possibly a sinus infection. Discussed that his CT notes a chronic sinusitis, but in the setting of worsening symptoms, could be acute. Advised that this could be viral but if symptoms do not improve or worsen, could become bacterial. We will send home with a prescription for Augmentin and Flonase. We will also give a prescription for Lidoderm patch for his thoracic back pain. He is advised to follow-up with his primary care doctor for reevaluation and to return here at any time if worse. Medical Records Medical records reviewed: Yes I reviewed the patient's medical records. Imaging Data Radiologic Study: Radiologist's impression: PA AND LATERAL CHEST: The heart is at the upper limits of normal in size. The lungs are clear. No pleural effusion. Note is made of anterior spinal fusion of the lower cervical spine with plate and screw fixation in place. There are old compression deformities of lower thoracic vertebrae, unchanged from 12/15/16. CONCLUSION: No evidence of acute process. NONCONTRAST HEAD CT: CT examination was performed without contrast material. Note is made of mild mucoperiosteal thickening of maxillary, ethmoid, sphenoid and frontal sinuses consistent with mild chronic sinusitis. Mastoid air cells are clear. Orbital and temporal bone structures appear intact. Ventricular system is normal in appearance. There is no evidence of acute intracranial hemorrhage, mass effect or midline shift. CONCLUSION: No evidence of acute intracranial process. Lab Data Lab results reviewed: Yes I reviewed the patient's lab results. Laboratory Tests Range/Units 07/04/19 07/04/19 07/04/19 11:20 11:20 11:20 WBC (4.4-10.8) k/cumm 11.12 H RBC (4.50-6.00) m/cumm 5.16 Hgb (13.5-17.5) g/dL 15.2 Hct (40.0-50.0) % 46.0 MCV (80-95) fL 89.1 MCH (27.0-33.0) pg 29.5 MCHC (32.0-36.0) g/dL 33.0 RDW (11.8-14.1) % 13.9 Plt Count (130-400) x1000/uL 236 MPV (8.0-11.0) fL 10.3 Immature Gran % 0.3 Neutrophils % 74.6 Lymphocytes % 13.8 Monocytes % 8.7 Eosinophils % 2.0 Basophils % 0.6 Absolute Neutrophils (1.2-6.7) k/cumm 8.30 H Absolute Lymphocytes (1.2-3.4) k/cumm 1.53 Absolute Monocytes (0.11-0.7) k/cumm 0.97 H Absolute Eosinophils (0.0-0.7) k/cumm 0.22 Absolute Basophils (0.0-0.2) k/cumm 0.07 PT (9.3-11.0) sec 9.7 INR (0.9-1.1) 1.0 APTT (21.0-31.4) sec 24.0 D-Dimer (<500) ng/mlFEU 467 Sodium (136-145) mmol/L 140 Potassium (3.5-5.1) mmol/L 4.0 Chloride (98-107) mmol/L 106 Carbon Dioxide (21.0-32.0) mmol/L 23.4 Anion Gap (3-11) mmol/L 10.6 BUN (7-18) mg/dL 12 Creatinine (0.70-1.30) mg/dL 0.85 Estimated GFR/1.73 m2 (mL/min/1.73m2) >= 60.00 Glucose (70-100) mg/dL 92 Calcium (8.5-10.1) mg/dL 8.6 Magnesium (1.8-2.4) mg/dL 2.0 Total Bilirubin (0.2-1.0) mg/dL 0.6 AST (15-37) U/L 11 L ALT (12-78) U/L 29 Alkaline Phosphatase (46-116) U/L 81 Troponin I (0.00-0.06) ng/mL < 0.05 Total Protein (6.4-8.2) g/dL 7.2 Albumin (3.4-5.0) g/dL 3.6 ECG Data Attestation: I personally reviewed and interpreted this ECG (s) as follows: Interpretation: rate of 78, sinus, no acute ST elevation or depression, QTc 410. QRS 96. AL 176. HPI General Mode of arrival: ambulatory. Date/Time Provider Initiated Documentation: 07/04/19 11:03. Limitations to Documentation: no limitations. Information obtained by: patient. HPI Narrative: Patient is a 53-year-old male who presents to the ED with complaint of sinus congestion, sore throat, green nasal discharge that is occasionally blood-tinged, facial pain, frontal headache, intermittent sharp chest and back pain for the past week. States his pain is currently 5/10. 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 He admits to feeling dizzy this morning. He denies known fever, cough, diarrhea, urinary symptoms, shortness of breath. He states he has been having difficulty sleeping at night, and to help with his fatigue during the day he has been drinking two 5-hour energy shots twice daily and drinking multiple energy drinks throughout the day. He denies recent travel, recent surgery, or leg pain or swelling. Related Data Home Medications Medication Instructions Recorded Confirmed epinephrine 0.3 mg IJ PRN PRN #1 kit 10/26/16 07/04/19 Prilosec OTC 20 mg PO DAILY 12/25/16 07/04/19 lisinopril 10 mg tablet 10 mg PO DAILY #90 tab-cap 08/09/18 07/04/19 amoxicillin-pot clavulanate 1 tab PO BID 10 Days #20 tab 07/04/19 [Augmentin] fluticasone propionate [Flonase 1 spray RADHA DAILY #16 gm 07/04/19 Allergy Relief] lidocaine [Lidoderm] 1 patch TP DAILY #15 each 07/04/19 Previous Rx's Medication Instructions Recorded epinephrine 0.3 mg IJ PRN PRN #1 kit 10/26/16 lisinopril 10 mg tablet 10 mg PO DAILY #90 tab-cap 08/09/18 amoxicillin-pot clavulanate 1 tab PO BID 10 Days #20 tab 07/04/19 [Augmentin] fluticasone propionate [Flonase 1 spray RADHA DAILY #16 gm 07/04/19 Allergy Relief] lidocaine [Lidoderm] 1 patch TP DAILY #15 each 07/04/19 Allergies Allergy/AdvReac Type Severity Reaction Status Date / Time shellfish derived Allergy Unknown Verified 07/04/19 11:15 General Stated Complaint: Chest Pain ALMAZ: 2 Review of Systems Review of Systems All systems reviewed & are unremarkable except as noted in HPI and below Constitutional Reports as per HPI, Denies chills, Denies fever(s) and Reports headache(s) Eyes Denies blurry vision ENT Denies dizziness, Reports headache(s), Reports nasal congestion, Reports nasal discharge, Reports sinus pain, Reports sinus pressure, Denies sore throat and Denies throat swelling Cardiovascular Reports chest pain and Denies dyspnea Respiratory Denies cough and Denies dyspnea Gastrointestinal Denies abdominal pain, Denies diarrhea and Denies vomiting Genitourinary Denies hematuria and Denies dysuria Musculoskeletal Reports back pain and Denies numbness Integumentary/Breasts Denies lesions and Denies rash Neurologic Denies dizziness, Reports headache(s), Denies focal weakness and Denies numbness Allergic/Immunologic Denies throat swelling [facility] Medical History Foreign body (FB) in soft tissue (Acute ~01/04/19) GERD (gastroesophageal reflux disease) (Chronic) H/O hemorrhoids (Acute) HTN (hypertension) (Chronic) Surgical History Repair of umbilical hernia S/P colonoscopy (Acute ~01/04/19) S/P hemorrhoidectomy (Acute) Spinal Fusion (~2006) Tonsillectomy and adenoidectomy Social History (Reviewed 07/04/19 @ 12:17 by BRIANA Hadley Smoking/Tobacco Use Status: Former Tobacco Use Alcohol Intake: current Alcohol Intake frequency: a few times a month Alcohol type: beer Drug use: Never Substance use type: does not use 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 Do you feel safe at home: Yes Do you feel safe in your relationship?: Yes Exam Const General: cooperative, healthy appearing and no acute distress HENMT Head: normal to inspection Face and sinus: normal facial exam Eyes General: appearance normal, both eyes and all related structures Pupils: PERRL EOM: EOM intact bilaterally Neck Neck: normal visual inspection and No submandibular swelling Lymphatic: no lymphadenopathy noted Chest Chest: normal inspection of the chest and no tenderness Resp Effort & Inspection: normal respiratory effort and able to speak in complete sentences Auscultation: clear to auscultation bilaterally Cardio Rate: regular rate Rhythm: regular rhythm GI Inspection: normal to inspection Palpation: soft, not firm, not rigid and nontender Auscultation: normal bowel sounds Back/Spine/Pelvis Pelvis: no pain with anterior-posterior compression Back/spine/pelvis image: 1. Tenderness to palpation bilateral paraspinal thoracic region. No evidence of erythema, ecchymosis, rash or trauma. Skin General skin exam: no rashes or lesions noted Neuro General: alert, awake and oriented x3 Cranial Nerves: CN's II-XI intact bilaterally Cognition: normal cognition Speech: speech normal Motor: muscle tone normal throughout and strength 5/5 throughout Sensory Exam: no sensory deficits noted Extrem General: normal to inspection, full ROM, normal capillary refill, no calf tenderness bilaterally and no edema Psych Appearance: grossly normal Mental Status: mental status grossly normal Speech and Movement: speech and movement normal Affect: normal affect Course Vital Signs Temperature 98.6 F 07/04/19 11:12 Pulse 80 07/04/19 11:12 Respiratory Rate 18 07/04/19 11:12 Blood Pressure 170/93 H 07/04/19 11:12 Pulse Oximetry 98 07/04/19 11:12 Temperature 98.6 F 07/04/19 11:12 Pulse 80 07/04/19 11:12 Respiratory Rate 18 07/04/19 11:24 Respiratory Effort 07/04/19 11:24 Respiratory Depth Normal 07/04/19 11:24 Respiratory Pattern Normal 07/04/19 11:24 Blood Pressure 170/93 H 07/04/19 11:12 Pulse Oximetry 98 07/04/19 11:12 Oxygen Delivery Method Room Air 07/04/19 11:12 Oxygen Flow Rate 0 07/04/19 11:12 Pain Level 5 07/04/19 11:12
[2019-07-04 11:41] LABS: Abs Immature Grans 0.03 k/cumm (0.0-0.09); Absolute Basophil Count 0.07 k/cumm (0.0-0.2); Absolute Eosinophil Count 0.22 k/cumm (0.0-0.7); Absolute Monocyte Count 0.97 k/cumm (0.11-0.7); Basophils % 0.6; HGB 15.2 g/dL (13.5-17.5); Immature Grans % 0.3; Lymphocytes % 13.8; Mean Corpuscular Hemoglobin 29.5 pg (27.0-33.0); Mean Corpuscular Volume 89.1 fL (80-95); Mean Platelet Volume 10.3 fL (8.0-11.0); Monocytes % 8.7; Neutrophils % 74.6; Platelet Count 236 x1000/uL (130-400); RBC 5.16 m/cumm (4.50-6.00); RBC Distribution Width 13.9 % (11.8-14.1); White Blood Cell Count 11.12 k/cumm (4.4-10.8)
[2019-07-04 11:42] LABS: Absolute Lymphocyte Count 1.53 k/cumm (1.2-3.4)
[2019-07-04 12:00] LABS: Prothrombin Time 9.7 sec (9.3-11.0)
[2019-07-04 12:01] LABS: ALT 29 U/L (12-78); AST 11 U/L (15-37); Albumin 3.6 g/dL (3.4-5.0); Alkaline Phosphatase 81 U/L (46-116); Anion Gap 10.6 mmol/L (3-11); BUN 12 mg/dL (7-18); Bilirubin, Total 0.6 mg/dL (0.2-1.0); CO2 23.4 mmol/L (21.0-32.0); CREATININE 0.85 mg/dL (0.70-1.30); Calcium 8.6 mg/dL (8.5-10.1); Chloride 106 mmol/L (98-107); Glucose 92 mg/dL (70-100); Sodium 140 mmol/L (136-145); Total Protein 7.2 g/dL (6.4-8.2)
[2019-07-04 12:08] LABS: Troponin I < 0.05 ng/mL (0.00-0.06)
[2019-07-04 12:17] LABS: D-Dimer 467 ng/mlFEU (<500)
--- NOTE | 2019-07-04 12:40 | DI.CT_ITS ---
SYMPTOM/DIAGNOSIS: HEADACHE, FACIAL PAIN, ? ACUTE CVA OR SINUSITIS NONCONTRAST HEAD CT: CT examination was performed without contrast material. Note is made of mild mucoperiosteal thickening of maxillary, ethmoid, sphenoid and frontal sinuses consistent with mild chronic sinusitis. Mastoid air cells are clear. Orbital and temporal bone structures appear intact. Ventricular system is normal in appearance. There is no evidence of acute intracranial hemorrhage, mass effect or midline shift. CONCLUSION: No evidence of acute intracranial process.
[2019-07-04] MEDS: Normal Saline 1,000 ML 1000 ML IV (12:45)
--- NOTE | 2019-07-04 13:50 | DI.RAD_ITS ---
SYMPTOMS/DIAGNOSIS: BACK PAIN RADIATING TO CHEST, ASSESS MEDIASTINUM, ? PNEUMONIA PA AND LATERAL CHEST: The heart is at the upper limits of normal in size. The lungs are clear. No pleural effusion. Note is made of anterior spinal fusion of the lower cervical spine with plate and screw fixation in place. There are old compression deformities of lower thoracic vertebrae, unchanged from 12/15/16. CONCLUSION: No evidence of acute process.
[2019-07-04] MEDS: Dexamethasone 10 MG/ML VIAL PO (14:07)
[2019-07-04] MEDS: Ketorolac 30 MG/ML VIAL IVP (14:08)
[2019-07-04] MEDS: Prochlorperazine 10 MG/2 ML VIAL IVP (14:08)
== END 2019-07-04 15:56 | disposition home or self-care (01) ==
PROVIDERS: Emergency Provider Physician Assistant; PCP Emergency Medicine
DX: S39.012A Strain of muscle, fascia and tendon of lower back, initial encounter (principal); S29.011A Strain of muscle and tendon of front wall of thorax, initial encounter; J32.9 Chronic sinusitis, unspecified; I10 Essential (primary) hypertension
CPT/HCPCS: 36415; 80053; 93005; 96361; 96374; 96375; 99285; 70450; 71046; 83735; 84484; 85025; 85379; 85610; 85730; 93010; J0780; J1100; J1885

== ENCOUNTER 2020-04-09 10:16 | Emergency (ER) | payer OTHER, SELFPAY ==
[2020-04-09 10:21] VITALS: BP 134/89; PULSE 73; RESP 18; TEMP 36.9; O2SAT 96
--- NOTE | 2020-04-09 10:25 | ED.GENADUL_ITS ---
Discharge Plan Disposition Patient Disposition: HOME Condition: Stable Discharge Details Chief Complaint: Orthopedic Clinical Impression: Chronic pain of right knee, Degenerative joint disease Primary Care Provider: Trent Herron ED Provider: Lois Gordillo Home Meds and New Rx's Prescriptions: Continued omeprazole magnesium [Prilosec OTC] 20 MG tablet,delayed release (DR/EC) 20 mg PO DAILY RF: 0 lisinopril 10 mg tablet 10 mg PO DAILY Qty: 90 RF: 4 epinephrine 0.3 MG/SYR auto-injector 0.3 mg IJ PRN PRN (Reason: Anaphylaxis) Qty: 1 RF: 0 Discharge Instructions Instructions: Knee Pain (ED) Additional Instructions: Rest, ice, and elevate the affected area as much as possible. Alternate tylenol and motrin as needed and directed for pain. Follow-up with your primary care doctor in 1 week. You can call orthopedics to schedule an appointment for further evaluation of your chronic knee pain. Return to the emergency department with any worsening or new concerning symptoms. Referrals: Vel Villa MD [ [facility] STAFF PHYSICIAN] - Discharge Data Discharge Date/Time-TO BE ENTERED AT DEPARTURE: 04/09/20 12:07 Discharge Physician: Lois Gordillo Medical Decision Making 54-year-old male with a complaint of right knee pain for the past year, worse over the past 6 weeks after twisting injury. Right knee normal to inspection. He has pain with range of motion, mostly anteromedial aspect. There is no evidence of cellulitis or trauma. No calf tenderness. Neurovascular intact. No ligamentous injury. Discussed with patient that chronic right knee pain often due to degenerative joint disease, but this may be worse due to a strain or sprain recently. His referred pain is likely due to his altered gait. An x-ray was obtained which noted degenerative changes but no other acute findings. Patient was advised to continue to rest as much as possible, ice, elevate and wear knee brace or Mateo wrap. He requested orthopedic follow-up. Usual and customary return precautions given prior to discharge. Medical Records Medical records reviewed: Yes I reviewed the patient's medical records. Imaging Data Radiologic Study: Radiologist's impression: XR KNEE RT 4V AP,LAT,ARIANE,PAT CLINICAL HISTORY: assess for fluid, fracture, arthritis. TECHNIQUE: 2D digital imaging was performed. COMPARISON: No exams were available for comparison FINDINGS: BONES: No acute fracture is present. No bony destructive lesion is seen. JOINTS: The knee is normally aligned. No joint effusion is seen. There is mild medial femoral tibial joint space narrowing and mild are periarticular spurring. SOFT TISSUE: Normal. IMPRESSION: Mild degenerative changes, greatest of the medial femoral tibial joint. HPI General Mode of arrival: ambulatory . Date/Time Provider Initiated Documentation: 04/09/20 10:17 . Limitations to Documentation: no limitations . Information obtained by: patient . HPI Narrative: Patient is a 54-year-old male who presents to the ED with a complaint of right knee pain for the past year, worse over the past 6 weeks after twisting injury while lifting and carrying something with leg straight. Patient states that he has not seen his regular doctor for this chronic knee pain. He states the pain is worse with weightbearing. He states he has been walking on the outside of his foot due to his right knee pain. He states the knee pain is mainly on the medial aspect. He denies any fever. He states the pain does radiate occasionally down to his leg and up to his hip when weightbearing. Related Data Home Medications Medication Instructions Recorded Confirmed epinephrine 0.3 mg IJ PRN PRN #1 kit 10/26/16 04/09/20 omeprazole magnesium [Prilosec OTC] 20 mg PO DAILY 12/25/16 04/09/20 lisinopril 10 mg tablet 10 mg PO DAILY #90 tab-cap 08/11/19 04/09/20 Previous Rx's Medication Instructions Recorded epinephrine 0.3 mg IJ PRN PRN #1 kit 10/26/16 lisinopril 10 mg tablet 10 mg PO DAILY #90 tab-cap 08/11/19 Allergies Allergy/AdvReac Type Severity Reaction Status Date / Time shellfish derived Allergy Unknown Verified 04/09/20 10:25 General Stated Complaint: Orthopedic ALMAZ: 4 Review of Systems All systems reviewed & are unremarkable except as noted in HPI and below PFSH Social History Smoking/Tobacco Use Status: Former Tobacco Use Alcohol Intake: current Alcohol Intake frequency: holidays/special occasions only Alcohol type: beer Drug use: Never Substance use type: does not use 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 Do you feel safe at home: Yes Do you feel safe in your relationship?: Yes Exam Const General: cooperative, healthy appearing and no acute distress HENMT Head: normal to inspection Mouth: oral mucosae normal Eyes General: appearance normal, both eyes and all related structures Neck Neck: normal visual inspection Resp Effort & Inspection: normal respiratory effort and able to speak in complete sentences Cardio Rate: regular rate Skin General skin exam: no rashes or lesions noted Neuro General: patient alert, patient awake and patient oriented x3 Motor: muscle tone normal throughout Extrem General: normal to inspection, full ROM and no calf tenderness bilaterally Right lower extremity: knee (No pain w/ valgus or varus stress. Negative anterior/posterior drawer test) Details: normal to inspection, abnormal ROM Details: pain with active ROM during Details: in flexion and pain with passive ROM during Details: in flexion and knee ligament exam normal; no tenderness and no swelling Psych Appearance: grossly normal Affect: normal affect Course Vital Signs Vital signs: Vital Signs Temperature 98.4 F 04/09/20 10:21 Pulse 73 04/09/20 10:21 Respiratory Rate 18 04/09/20 10:21 Blood Pressure 134/89 04/09/20 10:21 Pulse Oximetry 96 04/09/20 10:21 Temperature 98.4 F 04/09/20 10:21 Temperature Source Temporal Artery Scan 04/09/20 10:21 Pulse 73 04/09/20 10:21 Respiratory Rate 18 04/09/20 10:21 Blood Pressure 134/89 04/09/20 10:21 Blood Pressure Position Sitting 04/09/20 10:21 Pulse Oximetry 96 04/09/20 10:21 Oxygen Delivery Method Room Air 04/09/20 10:21 Oxygen Flow Rate 0 04/09/20 10:21 Pain Level 8 04/09/20 10:21
--- NOTE | 2020-04-09 11:02 | DI.RAD_ITS ---
EXAM: XR KNEE RT 4V AP,LAT,ARIANE,PAT CLINICAL HISTORY: assess for fluid, fracture, arthritis. TECHNIQUE: 2D digital imaging was performed. COMPARISON: No exams were available for comparison FINDINGS: BONES: No acute fracture is present. No bony destructive lesion is seen. JOINTS: The knee is normally aligned. No joint effusion is seen. There is mild medial femoral tibial joint space narrowing and mild are periarticular spurring. SOFT TISSUE: Normal. IMPRESSION: Mild degenerative changes, greatest of the medial femoral tibial joint. DATA REPOSITORY: RADIATION DOSE DELIVERED:
== END 2020-04-09 12:07 | disposition home or self-care (01) ==
PROVIDERS: Emergency Provider Physician Assistant; PCP Emergency Medicine
DX: M25.561 Pain in right knee (principal); G89.29 Other chronic pain; M17.11 Unilateral primary osteoarthritis, right knee; X50.9XXA Other and unspecified overexertion or strenuous movements or postures, initial encounter
CPT/HCPCS: 99283; 73564

== ENCOUNTER 2020-04-12 01:45 | Outpatient (CLI) | payer OTHER, SELFPAY ==
[2020-04-12 14:20] LABS: D-Dimer 424 ng/mlFEU (<500)
[2020-04-12 14:32] LABS: ESR 5 mm/hr (1-20)
[2020-04-12 14:58] LABS: C-Reactive Protein 0.12 mg/dL (0.0-0.3)
[2020-04-12 21:54] LABS: Rheumatoid Factor <8.6 IU/mL (<12.0)
[2020-04-15 10:51] LABS: Cyclic Citrullinated Peptide <2.5 U/mL (<5.0)
== END 2020-04-12 02:05 ==
PROVIDERS: Nurse Practitioner Family; PCP Emergency Medicine; Visit Provider Emergency Medicine
DX: M25.522 Pain in left elbow (principal); B07.0 Plantar wart; M25.641 Stiffness of right hand, not elsewhere classified; M25.642 Stiffness of left hand, not elsewhere classified; M79.641 Pain in right hand; M79.642 Pain in left hand
CPT/HCPCS: 85652; 86200; 85379; 86140; 86431

== ENCOUNTER 2020-05-20 00:18 | Outpatient (CLI) | payer OTHER, SELFPAY ==
--- NOTE | 2020-05-20 07:45 | DI.MRI_ITS ---
EXAM: MR LOWER JOINT RT WO CLINICAL HISTORY: RT KNEE PAIN, M25.561. TECHNIQUE: Multiplanar multisequence MRI was performed. COMPARISON: CR XR KNEE RT 4V AP,LAT,ARIANE,PAT from 04/09/2020 FINDINGS: There is a moderate-sized joint effusion. There is a linear defect in the cartilage of the medial patellar facet extending down to bone. There is some high signal in the underlying bone. There is a lso focal thinning of the cartilage overlying the medial femoral condyle, extending down to bone. Th ere is mild high signal in the medial tibial plateau which could represent mild bone contusion. Ther e is no discrete fracture. There are 2 loose bodies seen in the posterior joint space, medial to the posterior cruciate ligament. There is mild edema around the anterior cruciate ligament but no evidence of a focal tear. The poste rior cruciate ligament has a normal appearance. There is edema around the medial collateral ligament but no focal tear. The lateral collateral ligament complex and extensor mechanism appear intact. T here is mild edema anterior to the patellar tendon. There is a tear of the body and posterior horn o f the medial meniscus extending obliquely to the inferior articular surface. There is some blunting of the meniscus posteriorly. IMPRESSION: Inferior surfacing tear of the body and posterior horn of the medial meniscus. Contusion of the medial tibial plateau. Joint effusion. Cartilage defects of the medial patellar facet and medial femoral condyle. DATA REPOSITORY:
== END 2020-05-20 00:38 ==
PROVIDERS: PCP Emergency Medicine; Visit Provider Student in an Organized Health Care Education/Training Program
DX: M25.561 Pain in right knee (principal); M25.461 Effusion, right knee; S83.241A Other tear of medial meniscus, current injury, right knee, initial encounter
CPT/HCPCS: 73721

== ENCOUNTER 2020-07-29 07:25 | Emergency (ER) | payer OTHER, SELFPAY ==
[2020-07-29 07:29] VITALS: BP 141/90; PULSE 78; RESP 15; O2SAT 98
--- NOTE | 2020-07-29 08:00 | DI.CT_ITS ---
EXAM: CT HEAD WO CLINICAL HISTORY: Frontal headache. TECHNIQUE: Imaging Protocol: Axial computed tomography images with coronal and sagittal reformatted images were created and reviewed COMPARISON: CT CT HEAD WO from 07/04/2019 FINDINGS: The ventricular system is normal in appearance. No evidence of acute intracranial hemorrhage, mass effect, or midline shift. The orbital structures are unremarkable. The temporal bone structures appear intact. Calvarium: Normal. Visualized Paranasal sinuses/Mastoids: Mastoid air cells are clear. Paranasal sinuses are well aerat ed except for an apparent tiny retention cyst of the floor of the right maxillary antrum. IMPRESSION: Normal cranial CT. RADIATION DOSE DELIVERED: Total DLP Total DLP DATA REPOSITORY: All CT scans at this facility are submitted to the National Radiology Data Registry (NRDR) Dose Index Registry (DIR) with the [employer] (ACR). RADIATION OPTIMIZATION: All CT scans at this facility use at least one of these dose optimization te chniques: automated exposure control; mA and/or kV adjustment per patient size (includes targeted exa ms where dose is matched to clinical indication); or iterative reconstruction.
--- NOTE | 2020-07-29 08:02 | ED.GENADUL_ITS ---
Discharge Plan Disposition Patient Disposition: HOME Condition: Improving Discharge Details Clinical Impression: Migraine Primary Care Provider: Trent Herron ED Provider: Saurabh Mason Home Meds and New Rx's Prescriptions: Continued omeprazole magnesium [Prilosec OTC] 20 MG tablet,delayed release (DR/EC) 20 mg PO DAILY RF: 0 lisinopril 10 mg tablet 10 mg PO DAILY Qty: 90 RF: 4 epinephrine 0.3 MG/SYR auto-injector 0.3 mg IJ PRN PRN (Reason: Anaphylaxis) Qty: 1 RF: 0 Discharge Instructions Instructions: Migraine Headache (ED) Additional Instructions: Home to rest today. Small, frequent sips of fluids so that you maintain hydration. I recommend that you do not use more than 1 dose of Excedrin for headache. I would recommend at the very beginning of a headache that you take 800 mg of ibuprofen and 16 ounces of water. You may also use Tylenol as needed for headache. Return to the ER if you develop a fever, vomiting, or any other acute concerns. Medical Decision Making 54-year-old male presents from home with 4 days of frontal headache. He denies a fall, accident, injury, recent illness or fever. He states he does have a history of migraine headaches but not for a long time. He has been taking Excedrin with some improvement and then rebound of the headache. Patient is well-appearing in no acute distress. His differential diagnosis includes migraine type cephalgia, sinus infection, must exclude intracranial mass or lesion. Patient IV access established, screening labs obtained, referred for CT of the head. He is given fluids, anti-inflammatories and diphenhydramine. CT scan of the head unremarkable. Labs are reassuring, do note slight anion gap of 12. Following fluids and medications, the patient has near complete resolution of his headache. Discussed with him that is most consistent with tension/migraine type headache. Offered some counseling as to home management. He is stable and improved, appropriate for discharge to home at this time. Lab Data Lab results reviewed: Yes I reviewed the patient's lab results. Labs: Laboratory Results - last 24 hr 07/29/20 07/29/20 07/29/20 08:00 08:15 08:15 WBC 5.82 RBC 5.20 Hgb 15.1 Hct 44.0 MCV 84.6 MCH 29.0 MCHC 34.3 RDW 13.0 Plt Count 211 MPV 9.8 Immature Gran % 0.3 Neutrophils % 57.1 Lymphocytes % 20.6 Monocytes % 17.7 Eosinophils % 3.3 Basophils % 1.0 Nucleated RBC % 0 Absolute Neutrophils 3.32 Absolute Lymphocytes 1.20 Absolute Monocytes 1.03 H Absolute Eosinophils 0.19 Absolute Basophils 0.06 Sodium Cancelled 139 Potassium Cancelled 3.5 Chloride Cancelled 103 Carbon Dioxide Cancelled 23.4 Anion Gap Cancelled 12.6 H BUN Cancelled 9 Creatinine Cancelled 0.85 Estimated GFR/1.73 m2 Cancelled >= 60.00 Glucose Cancelled 127 H Calcium Cancelled 8.5 Total Bilirubin Cancelled AST Cancelled ALT Cancelled Alkaline Phosphatase Cancelled Total Protein Cancelled Albumin Cancelled HPI General Mode of arrival: ambulatory . Date/Time Provider Initiated Documentation: 07/29/20 07:33 . Limitations to Documentation: no limitations . Information obtained by: patient . History of Present Illness 54 year old M presents to the emergency department with the chief complaint of Headache x4 days, described as moderate and similar to prior episodes, Quality is described as aching, and is localized to the head. Patient reports no radiation. Patient started experiencing this day(s) and it has been constant. No relieving factors improve symptom(s), No exacerbating factors reported . Patient notes headaches; denies chest pain, fever/chills, loss of appetite, malaise, nausea/vomiting and syncope. Patient did receive the following treatments prior to arrival, other (Excedrin) Related Data Home Medications Medication Instructions Recorded Confirmed epinephrine 0.3 mg IJ PRN PRN #1 kit 10/26/16 07/29/20 omeprazole magnesium [Prilosec OTC] 20 mg PO DAILY 12/25/16 07/29/20 lisinopril 10 mg tablet 10 mg PO DAILY #90 tab-cap 08/11/19 07/29/20 Previous Rx's Medication Instructions Recorded epinephrine 0.3 mg IJ PRN PRN #1 kit 10/26/16 lisinopril 10 mg tablet 10 mg PO DAILY #90 tab-cap 08/11/19 Allergies Allergy/AdvReac Type Severity Reaction Status Date / Time shellfish derived Allergy Unknown Verified 07/29/20 07:37 General Stated Complaint: Headache ALMAZ: 2 Review of Systems Narrative: No fall or trauma, no recent illness. No fever. 6 systems reviewed and otherwise negative [facility] Medical History (Updated 07/29/20 @ 09:27 by Saurabh Mason MD) Foreign body (FB) in soft tissue (~01/04/19) GERD (gastroesophageal reflux disease) H/O hemorrhoids HTN (hypertension) Surgical History Repair of umbilical hernia S/P colonoscopy (~01/04/19) S/P hemorrhoidectomy Spinal Fusion (~2006) Tonsillectomy and adenoidectomy Social History Smoking/Tobacco Use Status: Former Tobacco Use Alcohol Intake: current Alcohol Intake frequency: holidays/special occasions only Alcohol type: beer Drug use: Never Substance use type: does not use current occupation: [id number] Current gender identity: male Do you feel safe at home: Yes Do you feel safe in your relationship?: Yes Exam Narrative Exam Narrative: GEN: awake, alert, oriented 3. Pleasant, well groomed, interactive. HEAD: Normocephalic, atraumatic ENT: Mucous membranes moist, oropharynx unremarkable, External ear exam unremarkable EYES: PERRL, EOMI NECK: Full ROM, no JUAN R, no menigismus CHEST/RESP: Nontender, clear to auscultation bilateral, no wheeze/rhonchi/rales CARDIOVASCULAR: RRR, no murmur, rub stacy. 2+ Rad pulse bilateral ABDOMEN: Soft, nontender, no mass. +Bowel sounds EXT: Full ROM, no edema, no rash Neuro: Grossly normal neurologic exam, conversant, interactive. Normal gait with good heel strike. Psych: Speech fluent, thoughts congruent, affect normal Course Vital Signs Vital signs: Vital Signs Pulse 78 07/29/20 07:29 Respiratory Rate 15 07/29/20 07:29 Blood Pressure 141/90 H 07/29/20 07:29 Pulse Oximetry 98 07/29/20 07:29 Pulse 78 07/29/20 07:29 Respiratory Rate 15 07/29/20 07:29 Respiratory Effort Non-Labored 07/29/20 07:36 Blood Pressure 141/90 H 07/29/20 07:29 Blood Pressure Position Sitting 07/29/20 07:29 Pulse Oximetry 98 07/29/20 07:29 Oxygen Delivery Method Room Air 07/29/20 07:29 Oxygen Flow Rate 0 07/29/20 07:29 Pain Level 9 07/29/20 07:40
[2020-07-29] MEDS: diphenhydrAMINE 50 MG/ML VIAL 25 MG IVP (08:24)
[2020-07-29] MEDS: Dexamethasone 4 MG/ML VIAL 8 MG IVP (08:24)
[2020-07-29] MEDS: Normal Saline 1,000 ML 1000 ML IV (08:25)
[2020-07-29] MEDS: Ketorolac 30 MG/ML VIAL 15 MG IVP (08:25)
[2020-07-29 08:27] LABS: Abs Immature Grans 0.02 10^3/uL (0.0-0.06); Absolute Basophil Count 0.06 10^3/uL (0.0-0.2); Absolute Eosinophil Count 0.19 10^3/uL (0.0-0.7); Absolute Monocyte Count 1.03 10^3/uL (0.1-0.8); Absolute Neutrophil Count 3.32 10^3/uL (1.2-6.7); Eosinophils % 3.3; HGB 15.1 g/dL (13.5-17.5); Immature Grans % 0.3; Lymphocytes % 20.6; MCHC 34.3 % (32.0-36.0); MCV 84.6 fL (80-95); MPV 9.8 fL (8.0-11.0); Monocytes % 17.7; Neutrophils % 57.1; Nucleated RBC 0 %; Platelet Count 211 10^3/uL (130-400); RDW-SD 40.3 fL; WBC 5.82 10^3/uL (4.4-10.8)
[2020-07-29 08:34] LABS: Anion Gap 12.6 mmol/L (3-11); BUN 9 mg/dL (7-18); CO2 23.4 mmol/L (21.0-32.0); CREATININE 0.85 mg/dL (0.70-1.30); Calcium 8.5 mg/dL (8.5-10.1); Chloride 103 mmol/L (98-107); Glucose 127 mg/dL (74-106); Potassium 3.5 mmol/L (3.5-5.1); Sodium 139 mmol/L (136-145)
[2020-07-29 09:13] VITALS: BP 144/87; PULSE 73; RESP 15; TEMP 36.6; O2SAT 98
== END 2020-07-29 09:40 | disposition home or self-care (01) ==
PROVIDERS: Emergency Provider Emergency Medicine; PCP Emergency Medicine
DX: G43.809 Other migraine, not intractable, without status migrainosus (principal); I10 Essential (primary) hypertension
CPT/HCPCS: 36415; 80048; 80053; 96361; 96374; 96375; 99284; 70450; 85025; J1100; J1200; J1885

== ENCOUNTER 2020-07-30 23:48 | Emergency (ER) | payer OTHER, SELFPAY ==
--- NOTE | 2020-07-30 23:45 | DI.CT_ITS ---
EXAM: CT ABDOMEN PELVIS CTA CLINICAL HISTORY: severe abdominal pain, ?mesenteric ischemia TECHNIQUE: COMPARISON: CT CT ABDOMEN PELVIS W from 01/08/2019 FINDINGS: CT angiography of the abdomen and pelvis was performed with bolus infusion of 100 cc of Omnipaque 350 . Images obtained through the lung bases are unremarkable. The liver is of mildly decreased attenuat ion consistent with hepatic steatosis, otherwise unremarkable, spleen appear normal as does the pancr eas. Gallbladder and bile ducts are unremarkable. Adrenals appear normal bilaterally. Kidneys appear normal with no evidence of renal mass, hydronephro sis, or nephrolithiasis. Incidental 2 cm left renal cyst noted. There is slight prominence small Kira aortic lymph nodes, nonspecific. No bulky adenopathy in the ab domen or pelvis.. Abdominal aorta is of normal diameter. The celiac trunk, SMA, and [place] appear normal and major branch es appear intact. No CT a evidence of mesenteric ischemia. Renal arteries appear normal bilaterally . Common internal and external iliac arteries appear normal. Appendix has reportedly been surgically removed. No evidence diverticulitis or bowel obstruction. No significant abdominal wall hernia seen. Impression: Negative CT angiogram of the abdomen and pelvis. RADIATION DOSE DELIVERED: 1,795.95mGy.cm Total DLP 1,795.95mGy.cm Total DLP DATA REPOSITORY: All CT scans at this facility are submitted to the National Radiology Data Registry (NRDR) Dose Index Registry (DIR) with the [employer] (ACR). RADIATION OPTIMIZATION: All CT scans at this facility use at least one of these dose optimization te chniques: automated exposure control; mA and/or kV adjustment per patient size (includes targeted exa ms where dose is matched to clinical indication); or iterative reconstruction.
[2020-07-30 23:58] VITALS: BP 179/103; PULSE 70; RESP 20; TEMP 36.4; O2SAT 96
--- NOTE | 2020-07-31 | ED.GENADUL_ITS ---
Discharge Plan Disposition Patient Disposition: HOME Condition: Stable Discharge Details Clinical Impression: Abdominal pain, Back muscle spasm Primary Care Provider: Trent Herron ED Provider: Kike Hoffman Home Meds and New Rx's Prescriptions: New cyclobenzaprine 10 mg tablet 10 mg PO TID PRNQty: 20 RF: 0 Continued omeprazole magnesium [Prilosec OTC] 20 MG tablet,delayed release (DR/EC) 20 mg PO DAILY RF: 0 lisinopril 10 mg tablet 10 mg PO DAILY Qty: 90 RF: 4 epinephrine 0.3 MG/SYR auto-injector 0.3 mg IJ PRN PRN (Reason: Anaphylaxis) Qty: 1 RF: 0 Discharge Instructions Instructions: Muscle Spasm (ED) Additional Instructions: follow up with your primary care provider within 1 week especially if symptoms continue if you feel more ill, have severe worsening pain or persistent vomit return to the emergency department Medical Decision Making 55 yo male with no prior abdominal surgeries comes in with cc of severe abdominal pain radiating to the back worsening throughout the day withnausea and vomit. Denies chest pain, difficulty urinating or dyspnea. Has never had pain like this before. He was seen here on 07/29 for headaches and dx'd as migraine and denies any head pain now. He arrives appearing uncomfortable. He has tenderness in both lower quadrants no testicle tenderness or swelling. Multiple different potential etiologies including kidney stone, diverticulitis with perforation, sbo, mesenteric ischemia will obtain lab work and CTA and monitor. pt's labs unremarkable and imaging shows nonspecific bowel gas pattern that is nonobstructed and could be enteritis vs ileus. His abdominal pain has significantly improved but still has left lower back pain, no saddle anesthesia, normal sensation and motor in the legs and no urinary retention, no findings to suggest cauda equina and no fevers or infectious etiologies to suggest sea. His pain could be from muscle spasm, will try flexeril. pt now resting comfortably stating he has only mild left lower back pain and no longer having any abdominal pain and no tenderness on exam. Given improvement with flexeril will d/c with this and have him f/u with pcp, return precautions given Differential Diagnosis Differential Diagnosis: diverticulitis, pneumoperitoneum, mesenteric ischemia Medical Records Medical records reviewed: Yes I reviewed the patient's medical records. Imaging Data Radiologic Study: Attestation: I personally reviewed and interpreted this imaging study as follows: Imaging: CT Scan Radiologist's impression: IMPRESSION: No hemodynamically significant stenosis. No CT evidence for mesenteric ischemia Nonspecific nonobstructed bowel gas pattern which may represent mild enteritis/ileus Mild periaortic infiltration and small periaortic lymph nodes. Findings are nonspecific and mildly increased in prominence from the prior examination. Differential possibilities include infectious/inflammatory etiologies. Neoplasm less likely however cannot be completely excluded Grossly stable chronic spondylolysis with spondylolisthesis at L5-S1 Lab Data Lab results reviewed: Yes I reviewed the patient's lab results. HPI General Mode of arrival: ambulatory . Date/Time Provider Initiated Documentation: 07/30/20 23:49 . Limitations to Documentation: no limitations . Information obtained by: patient . History of Present Illness 55 year old M presents to the emergency department with the chief complaint of abdominal pain, described as moderate, and it has been constant. No relieving factors improve symptom(s), No exacerbating factors reported . Patient did receive the following treatments prior to arrival, none Related Data Home Medications Medication Instructions Recorded Confirmed epinephrine 0.3 mg IJ PRN PRN #1 kit 10/26/16 07/31/20 omeprazole magnesium [Prilosec OTC] 20 mg PO DAILY 12/25/16 07/31/20 lisinopril 10 mg tablet 10 mg PO DAILY #90 tab-cap 08/11/19 07/31/20 cyclobenzaprine 10 mg PO TID PRN #20 tab 07/31/20 Previous Rx's Medication Instructions Recorded epinephrine 0.3 mg IJ PRN PRN #1 kit 10/26/16 lisinopril 10 mg tablet 10 mg PO DAILY #90 tab-cap 08/11/19 cyclobenzaprine 10 mg PO TID PRN #20 tab 07/31/20 Allergies Allergy/AdvReac Type Severity Reaction Status Date / Time shellfish derived Allergy Unknown Verified 07/29/20 07:37 General ALMAZ: 2 Review of Systems All systems reviewed & are unremarkable except as noted in HPI and below Constitutional Constitutional: Denies chills, Denies fever(s) and Denies weakness Cardiovascular Cardiovascular: Denies chest pain and Denies dyspnea Respiratory Respiratory: Denies cough and Denies dyspnea Genitourinary Genitourinary: Denies dysuria Integumentary/Breasts Skin/Breast: Denies rash Neurologic Neurologic: Denies weakness Psychiatric Psychiatric: Denies depression [facility] Medical History (Updated 07/31/20 @ 01:53 by Kike Hoffman MD) Foreign body (FB) in soft tissue (~01/04/19) GERD (gastroesophageal reflux disease) H/O hemorrhoids HTN (hypertension) Surgical History Repair of umbilical hernia S/P colonoscopy (~01/04/19) S/P hemorrhoidectomy Spinal Fusion (~2006) Tonsillectomy and adenoidectomy Social History Smoking/Tobacco Use Status: Former Tobacco Use Alcohol Intake: current Alcohol Intake frequency: holidays/special occasions only Alcohol type: beer Drug use: Never Substance use type: does not use current occupation: [employer] Current gender identity: male Do you feel safe at home: Yes Do you feel safe in your relationship?: Yes Exam Const General: other (in pain) Orientation: alert HENMT Head: normal to inspection Ears: external ears normal General nose exam: external nose normal Mouth: moist mucous membranes Eyes General: appearance normal, both eyes and all related structures Neck Neck: normal visual inspection Resp Effort & Inspection: normal respiratory effort and able to speak in complete sentences Cardio Rate: regular rate Skin General skin exam: no rashes or lesions noted Neuro General: patient alert and patient oriented x3 Extrem General: normal to inspection Psych Mental Status: mental status grossly normal
[2020-07-31] MEDS: Normal Saline 1,000 ML 1000 ML IV (00:07)
[2020-07-31] MEDS: Ondansetron 4 MG/2 ML VIAL IVP (00:10)
[2020-07-31] MEDS: HYDROmorphone 2 MG/ML VIAL 1 MG IVP (00:11)
[2020-07-31] MEDS: Omnipaque 350 MG/ML 100 ML BTL IJ (00:15)
[2020-07-31 00:26] LABS: Abs Immature Grans 0.03 10^3/uL (0.0-0.06); Absolute Basophil Count 0.04 10^3/uL (0.0-0.2); Absolute Eosinophil Count 0.33 10^3/uL (0.0-0.7); Absolute Lymphocyte Count 1.75 10^3/uL (1.2-3.4); Absolute Monocyte Count 0.77 10^3/uL (0.1-0.8); Absolute Neutrophil Count 5.22 10^3/uL (1.2-6.7); Basophils % 0.5; Eosinophils % 4.1; HCT 43.4 % (40.0-50.0); HGB 14.7 g/dL (13.5-17.5); Immature Grans % 0.4; Lactate 1.4 mmol/L (0.6-1.4); Lymphocytes % 21.5; MCH 28.9 pg (27.0-33.0); MCHC 33.9 % (32.0-36.0); MCV 85.3 fL (80-95); MPV 10.3 fL (8.0-11.0); Monocytes % 9.5; Nucleated RBC 0 %; Platelet Count 312 10^3/uL (130-400); RBC 5.09 10^6/uL (4.36-5.78); RDW-SD 40.5 fL; WBC 8.14 10^3/uL (4.4-10.8)
[2020-07-31 00:42] LABS: ALT 50 U/L (16-63); AST 24 U/L (15-37); Albumin 3.6 g/dL (3.4-5.0); Alkaline Phosphatase 123 U/L (46-116); BUN 20 mg/dL (7-18); Bilirubin, Direct 0.12 mg/dL (0.00-0.20); Bilirubin, Total 0.5 mg/dL (0.2-1.0); CO2 23.4 mmol/L (21.0-32.0); Calcium 9.1 mg/dL (8.5-10.1); Glucose 130 mg/dL (74-106); Lipase 42 U/L (73-393); Total Protein 7.2 g/dL (6.4-8.2)
[2020-07-31 00:43] LABS: ETHANOL BLOOD < 3.0 mg/dL (<3)
[2020-07-31] MEDS: Normal Saline - Diluent 50 ML VIAL IV (00:46)
[2020-07-31] MEDS: Normal Saline Flush 10 ML SYR IVP (00:46)
[2020-07-31 00:49] LABS: PTT Activated 25.7 sec (21.0-31.4); Prothrombin Time 9.9 sec (9.3-11.0)
[2020-07-31 00:56] LABS: Anion Gap 10.6 mmol/L (3-11); Chloride 104 mmol/L (98-107); Potassium 3.5 mmol/L (3.5-5.1); Sodium 138 mmol/L (136-145)
--- NOTE | 2020-07-31 01:01 | DI.VRAD_ITS ---
PROCEDURE INFORMATION: Exam: CT Angiography Abdomen and Pelvis With Contrast Exam date and time: 07/30/2020 12:00 AM Age: 55 years old Clinical indication: Prior surgery; Surgery date: 6+ months; Surgery type: Appendectomy and hernia repair; Patient HX: Severe abdominal pain, ? mesenteric ischemia TECHNIQUE: Imaging protocol: Computed tomographic angiography of the abdomen and pelvis with intravenous contrast material. 3D rendering (Not supervised by radiologist): MIP and/or 3D reconstructed images were created by the technologist. Radiation optimization: All CT scans at this facility use at least one of these dose optimization techniques: automated exposure control; mA and/or kV adjustment per patient size (includes targeted exams where dose is matched to clinical indication); or iterative reconstruction. Contrast material: OMNIPAQUE 350; Contrast volume: 100 ml; Contrast route: INTRAVENOUS (IV); COMPARISON: CT ABDOMEN PELVIS W 01/08/2019 10:19 AM FINDINGS: Aorta: No aortic aneurysm. No aortic dissection. Celiac trunk and mesenteric arteries: No occlusion or significant stenosis. Renal arteries: No occlusion or significant stenosis. Right iliac arteries: No occlusion or significant stenosis. Left iliac arteries: No occlusion or significant stenosis. Liver: No mass. Hepatomegaly and diffuse fatty infiltration Gallbladder and bile ducts: Unremarkable. No calcified stones. No ductal dilation. Pancreas: Unremarkable. No mass. No ductal dilation. Spleen: Unremarkable. No splenomegaly. Adrenals: Unremarkable. No mass. Kidneys and ureters:. No solid mass. Left renal cyst No hydronephrosis. Circumaortic left renal vein, a normal variation Stomach and bowel: Mild mucosal thickening. Prominent distal small bowel loops with fluid noted. No obstruction. Appendix: No evidence of appendicitis. Intraperitoneal space: No free air. No significant fluid collection. Lymph nodes: Mild infiltration adjacent to the abdominal aorta and small periaortic lymph nodes Bladder: Unremarkable. No mass. Reproductive: Unremarkable as visualized. Bones/joints: No acute fracture. No dislocation. Degenerative changes in the spine Chronic spondylolysis with spondylolisthesis at L5-S1, grossly stable Soft tissues: Unremarkable. IMPRESSION: No hemodynamically significant stenosis. No CT evidence for mesenteric ischemia Nonspecific nonobstructed bowel gas pattern which may represent mild enteritis/ileus Mild periaortic infiltration and small periaortic lymph nodes. Findings are nonspecific and mildly increased in prominence from the prior examination. Differential possibilities include infectious/inflammatory etiologies. Neoplasm less likely however cannot be completely excluded Grossly stable chronic spondylolysis with spondylolisthesis at L5-S1 Dictated and Authenticated by: Travis Chong MD. Ordering:MARV Stokes MD
[2020-07-31 01:11] VITALS: BP 190/99; PULSE 71; RESP 16; O2SAT 97
[2020-07-31] MEDS: Cyclobenzaprine 10 MG TAB PO (01:14)
[2020-07-31 01:35] LABS: Bilirubin Negative (Negative); Blood Negative (Negative); Clarity Clear (Clear); Glucose Negative (Negative); Ketones Negative (Negative); Leukocyte Esterase Negative (Negative); Nitrite Negative (Negative); Specific Gravity 1.015 (1.005-1.025); Urobilinogen 0.2 EU/dL (Up TO 0.2); pH 5.5 (5-8)
[2020-07-31 01:59] VITALS: BP 179/101; PULSE 70; RESP 16; O2SAT 97
[2020-07-31] MEDS: Cyclobenzaprine 10 MG TAB, 3 TABS/BTL PO (01:59)
== END 2020-07-31 02:15 | disposition home or self-care (01) ==
PROVIDERS: Emergency Provider Emergency Medicine; PCP Emergency Medicine
DX: M62.830 Muscle spasm of back (principal); R10.30 Lower abdominal pain, unspecified; R11.2 Nausea with vomiting, unspecified; I10 Essential (primary) hypertension
CPT/HCPCS: 36415; 80053; 83690; 96361; 96374; 96375; 99285; 74174; 80320; 81003; 82248; 83605; 83735; 85025; 85610; 85730; J2405; J3490

== ENCOUNTER 2020-07-31 15:37 | Emergency (ER) | payer OTHER, SELFPAY ==
[2020-07-31] VITALS (43 sets, daily range): BP systolic 151–198; BP diastolic 86–101; PULSE 55–85; RESP 11–24; TEMP 36.7–36.8; O2SAT 91–99
--- NOTE | 2020-07-31 15:44 | ED.GENADUL_ITS ---
Discharge Plan Disposition Patient Disposition: HOME Condition: Improving Discharge Details Clinical Impression: Abdominal pain, Nausea and vomiting Primary Care Provider: Trent Herron ED Provider: Kike Hoffman Home Meds and New Rx's Prescriptions: New ondansetron 4 mg tablet,disintegrating 4 mg PO TID PRN (Reason: nausea and vomiting) Qty: 6 RF: 0 ciprofloxacin HCl 500 mg tablet 500 mg PO BID Qty: 14 RF: 0 Continued omeprazole magnesium [Prilosec OTC] 20 MG tablet,delayed release (DR/EC) 20 mg PO DAILY RF: 0 lisinopril 10 mg tablet 10 mg PO DAILY Qty: 90 RF: 4 epinephrine 0.3 MG/SYR auto-injector 0.3 mg IJ PRN PRN (Reason: Anaphylaxis) Qty: 1 RF: 0 cyclobenzaprine 10 mg tablet 10 mg PO TID PRNQty: 20 RF: 0 Discharge Instructions Instructions: Acute Nausea and Vomiting (ED), Abdominal Pain (ED) Additional Instructions: Drink plenty of fluids and get plenty of rest. Take Zofran as needed directed for nausea and vomiting. Follow-up with your primary care doctor tomorrow and for referral to rheumatology for reevaluation. Return immediately to the emergency department if you develop any worsening or new concerning symptoms. Discharge Data Discharge Physician: Lois Gordillo Medical Decision Making <Lois Gordillo DO - Last Filed: 07/31/20 20:03> 1550 -- 55-year-old male with a history of hypertension, anxiety, former alcohol abuse presents for left flank and left lower quadrant abdominal pain and vomiting since yesterday. Seen here earlier today for the same complaint and had unremarkable labs and CT negative for acute findings and discharged home after symptoms improved. Patient returns after sent by PCP for reevaluation. Blood pressure hypertensive. Patient appears comfortable upon my evaluation. His abdomen is soft but tender in the left lower quadrant. Normal exam. CTA read by our in-house radiologist as negative this morning. Differential diagnosis includes diverticulitis, kidney stone, mesenteric ischemia, AAA, small bowel obstruction, etc. Shortly after initial evaluation, patient complaining of continued pain and slightly diaphoretic. Vitals remained within normal limits. Will obtain screening labs, repeat CTA abdomen and pelvis, IV Tylenol and Zofran and r eassess. 1705 --patient reassessed and complaining of continued pain. Will give a dose of IV morphine. Labs reviewed and unremarkable. Troponin negative. Lipase negative. Normal white blood cell count. 1834 --CT notes redemonstrated inflammatory change about the aorta which is otherwise unremarkable in appearance. Findings could be related to vasculitis of which there are many causes. Clinical correlation is advised. 2. Otherwise stable exam. Patient reassessed and he feels much better. Case discussed with Dr. Medina who reviewed CT imaging -recommends CRP, YOGI, blood cultures and rheumatoid factor. 1944 --on reassessment, patient states pain is returning. States he does not feel comfortable going home at this time. Case discussed with Dr. Medina who recommended discussing with hospitalist. Case discussed with Dr. Quiroz who did not see an indication for admission overnight and recommended p.o. oxycodone and reevaluation. 1999 --Case endorsed to Dr. Hoffman to follow-up on response to oxycodone. Medical Records Medical records reviewed: Yes I reviewed the patient's medical records. Imaging Data Radiologic Study: Radiologist's impression: CT Angiography Abdomen and Pelvis With Contrast Exam date and time: 07/31/2020 4:08 PM Age: 55 years old Clinical indication: Abdominal pain; Acute; Patient HX: Pain last night, worsening TECHNIQUE: Imaging protocol: Computed tomographic angiography of the abdomen and pelvis with intravenous contrast material. 3D rendering (Not supervised by radiologist): MIP and/or 3D reconstructed images were created by the technologist. COMPARISON: CT ABDOMEN PELVIS CTA 07/31/2020 12:18 AM FINDINGS: Lungs: Likely dependent atelectasis. Otherwise clear lung bases. Heart: Heart is normal size. Aorta: Aorta is normal caliber. There is mild prominence of the abdominal aortic wall with small amount of adjacent stranding. Similar to slightly increased in prominence from prior. Celiac artery: No occlusion or significant stenosis. Renal arteries: No occlusion or significant stenosis. Iliac arteries: No significant stenosis or occlusion. Wall prominence and adjacent stranding involves proximal portions of the common iliacs. Liver: Likely hepatic steatosis. Otherwise unremarkable liver. Gallbladder and bile ducts: Unremarkable gallbladder within likely prominent fold. No biliary ductal dilation. Pancreas: Unremarkable pancreas. Spleen: Unremarkable spleen. Adrenals: The unremarkable bilateral adrenal glands. Kidneys and ureters: Similar appearance both kidneys. Stomach and bowel: Nonobstructed bowel. Appendix: Appendix is not identified. There are no convincing secondary signs of acute appendicitis however. Intraperitoneal space: No significant free fluid. No free air. Lymph nodes: Multiple prominent a small retroperitoneal nodes are redemonstrated. Bladder: Bladder is poorly distended and poorly evaluated. Reproductive: Mild prostatomegaly. Bones/joints: Scattered bony degenerative changes. Redemonstrated wedge compression deformity of T10 with greater than 50% height loss anteriorly. Similar appearance of bilateral pars defects at L5 and S1 with unchanged anterolisthesis of L5 on S1. Soft tissues: Unremarkable superficial soft tissues. IMPRESSION: 1. There is redemonstrated inflammatory change about the aorta which is otherwise unremarkable in appearance. Findings could be related to vasculitis of which there are many causes. Clinical correlation is advised. 2. Otherwise stable exam. Lab Data Lab results reviewed: Yes I reviewed the patient's lab results. <Kike Hoffman MD - Last Filed: 07/31/20 20:48> pt feels much better after one dose of oxycodone, seen by hospitalist and did not feel admission warranted and he has no abdominal tenderness on exam. Has pyuria so will treat this and also have him continue stool softeners and have him f/u with pcp for further workup of potential vasculitis, return precautions HPI <Lois Gordillo DO - Last Filed: 07/31/20 20:03> General Mode of arrival: ambulatory . Date/Time Provider Initiated Documentation: 07/31/20 15:44 . Limitations to Documentation: no limitations . Information obtained by: patient . HPI Narrative: Patient is a 55-year-old male with a history of GERD, hypertension and umbilical hernia repair who presents for left lower quadrant and left flank pain since yesterday. Patient was seen here for the same complaint very early this morning and had lab work and imaging which was unremarkable for an acute process and was discharged home after symptoms improved. He was seen at the PCP office today for continued pain and referred here for further evaluation and possible repeat CT. Patient states he felt better upon leaving here earlier this morning but states his pain returned and he vomited several more times. He states his pain initially started in his left flank yesterday and then migrated to his left lower quadrant with radiation around to his back. He states the pain is constant, sharp and currently 10/10. He states he took a dose of Flexeril earlier today with some relief but not since then. He mixed to a small formed brown nonbloody bowel movement this morning. Denies any fever or urinary symptoms. Related Data Home Medications Medication Instructions Recorded Confirmed epinephrine 0.3 mg IJ PRN PRN #1 kit 10/26/16 07/31/20 omeprazole magnesium [Prilosec OTC] 20 mg PO DAILY 12/25/16 07/31/20 lisinopril 10 mg tablet 10 mg PO DAILY #90 tab-cap 08/11/19 07/31/20 ciprofloxacin HCl 500 mg PO BID #14 tab 07/31/20 cyclobenzaprine 10 mg PO TID PRN #20 tab 07/31/20 07/31/20 ondansetron 4 mg PO TID PRN #6 tab 07/31/20 Previous Rx's Medication Instructions Recorded epinephrine 0.3 mg IJ PRN PRN #1 kit 10/26/16 lisinopril 10 mg tablet 10 mg PO DAILY #90 tab-cap 08/11/19 ciprofloxacin HCl 500 mg PO BID #14 tab 07/31/20 cyclobenzaprine 10 mg PO TID PRN #20 tab 07/31/20 ondansetron 4 mg PO TID PRN #6 tab 07/31/20 Allergies Allergy/AdvReac Type Severity Reaction Status Date / Time shellfish derived Allergy Unknown Verified 07/31/20 15:47 General ALMAZ: 2 Review of Systems <Lois Gordillo DO - Last Filed: 07/31/20 20:03> All systems reviewed & are unremarkable except as noted in HPI and below Constitutional Constitutional: Reports as per HPI, Denies chills and Denies fever(s) Eyes Eyes: Denies blurry vision ENT Ears, Nose, Mouth, and Throat: Denies dizziness, Denies sore throat and Denies throat swelling Cardiovascular Cardiovascular: Denies chest pain and Denies dyspnea Respiratory Respiratory: Denies cough and Denies dyspnea Gastrointestinal Gastrointestinal: Reports abdominal pain, Denies diarrhea and Reports vomiting Genitourinary Genitourinary: Denies hematuria and Denies dysuria Musculoskeletal Musculoskeletal: Denies back pain and Denies numbness Integumentary/Breasts Skin/Breast: Denies lesions and Denies rash Neurologic Neurologic: Denies dizziness, Denies localized weakness and Denies numbness Allergic/Immunologic Allergic/Immunologic: Denies throat swelling PFSH <Lois Gordillo DO - Last Filed: 07/31/20 20:03> Medical History (Updated 07/31/20 @ 20:00 by Lois Gordillo DO) Foreign body (FB) in soft tissue (~01/04/19) GERD (gastroesophageal reflux disease) H/O hemorrhoids HTN (hypertension) Surgical History Repair of umbilical hernia S/P colonoscopy (~01/04/19) S/P hemorrhoidectomy Spinal Fusion (~2006) Tonsillectomy and adenoidectomy Social History Smoking/Tobacco Use Status: Former Tobacco Use Alcohol Intake: current Alcohol Intake frequency: holidays/special occasions only Alcohol type: beer Drug use: Never Substance use type: does not use current occupation: [employer] Current gender identity: male Do you feel safe at home: Yes Do you feel safe in your relationship?: Yes Exam <Lois Gordillo DO - Last Filed: 07/31/20 20:03> Const General: cooperative, healthy appearing and no acute distress HENMT Head: normal to inspection Face and sinus: normal facial exam Eyes General: appearance normal, both eyes and all related structures EOM: EOM intact bilaterally Neck Neck: normal visual inspection and No submandibular swelling Lymphatic: no lymphadenopathy noted Chest Chest: normal inspection of the chest and no tenderness Resp Effort & Inspection: normal respiratory effort and able to speak in complete sentences Auscultation: clear to auscultation bilaterally Cardio Rate: regular rate Rhythm: regular rhythm GI Inspection: normal to inspection Palpation: soft, not firm, not rigid and tender in the LLQ Auscultation: hypoactive bowel sounds Penis: normal penis Scrotum: scrotum normal Testes: normal Back/Spine/Pelvis Back: no CVA tenderness Skin General skin exam: no rashes or lesions noted Neuro General: patient alert, patient awake and patient oriented x3 Cognition: normal cognition Speech: speech normal Motor: muscle tone normal throughout Sensory Exam: no sensory deficits noted Extrem General: normal to inspection, full ROM, capillary refill normal, no calf tenderness bilaterally and no edema Psych Appearance: grossly normal Mental Status: mental status grossly normal Speech and Movement: speech and movement normal Affect: normal affect Sign Out <Lois Gordillo DO - Last Filed: 07/31/20 20:03> Sign Out Data: Sign Out Comment: Case endorsed to follow-up on response to oxycodone and after evaluation by Dr. Medina. Plan is also to again discuss case with Dr. Quiroz regarding reassessment after pain medication and whether patient feels comfortable with going home. If patient improves, can follow-up with a primary care doctor with referral to rheumatology. If patient's pain does not improve, consider admission overnight for pain control. Last updated by Lois Gordillo DO at 07/31/20 20:05
--- NOTE | 2020-07-31 16:00 | DI.CT_ITS ---
EXAM: CT ABDOMEN PELVIS CTA CLINICAL HISTORY: LLQ abd pain, r/o diverticulitis, SBO, ischemia TECHNIQUE: COMPARISON: CT CT ABDOMEN PELVIS CTA from 07/31/2020 FINDINGS: CT angiography of the abdomen pelvis was performed with bolus infusion 85 cc of Omnipaque 350. Note is made of old vertebral compression fracture of T10 and T11 vertebral bodies. There is bilateral L5 spondylolysis spondylolisthesis of L5 on S1 estimated at 30 percent of the vertebral width. Images obtained through the lung bases are unremarkable. The liver and spleen are normal in appearance. High density material in the gallbladder is likely re presents sludge, gallstones not excluded. No biliary dilatation. Pancreas appears intact. Adrenals and kidneys appear normal except for an incidental small left exophytic renal cyst. No evid ence of urinary tract calcification or obstruction. Appendix not specifically visualized. There is no evidence of appendicitis or diverticulitis. Abdominal aorta is of normal diameter. Major visceral branches appear intact. No abdominal or pelvic adenopathy. No significant abdominal wall hernia. IMPRESSION: No evidence of acute intra-abdominal process. RADIATION DOSE DELIVERED: 1,053.38mGy.cm Total DLP
[2020-07-31 16:29] LABS: Abs Immature Grans 0.07 10^3/uL (0.0-0.06); Absolute Basophil Count 0.03 10^3/uL (0.0-0.2); Absolute Eosinophil Count 0.05 10^3/uL (0.0-0.7); Absolute Lymphocyte Count 1.53 10^3/uL (1.2-3.4); Absolute Monocyte Count 0.78 10^3/uL (0.1-0.8); Absolute Neutrophil Count 7.87 10^3/uL (1.2-6.7); Basophils % 0.3; Eosinophils % 0.5; HCT 44.5 % (40.0-50.0); HGB 15.1 g/dL (13.5-17.5); Immature Grans % 0.7; Lymphocytes % 14.8; MCH 28.8 pg (27.0-33.0); MCHC 33.9 % (32.0-36.0); MCV 84.8 fL (80-95); MPV 10.6 fL (8.0-11.0); Monocytes % 7.6; Neutrophils % 76.1; Nucleated RBC 0 %; Platelet Count 317 10^3/uL (130-400); RBC 5.25 10^6/uL (4.36-5.78); RDW 12.9 % (11.8-14.1); RDW-SD 40.1 fL; WBC 10.33 10^3/uL (4.4-10.8)
[2020-07-31 16:36] LABS: Lactate 0.8 mmol/L (0.6-1.4)
[2020-07-31] MEDS: ACETAMINOPHEN 1,000 MG/100 ML BTL 400 MG IVPB (16:37)
[2020-07-31] MEDS: Ondansetron 4 MG/2 ML VIAL IVP (16:37)
[2020-07-31] MEDS: Normal Saline 1,000 ML 1000 ML IV (16:37)
[2020-07-31 16:44] LABS: ALT 51 U/L (16-63); AST 17 U/L (15-37); Albumin 3.6 g/dL (3.4-5.0); Alkaline Phosphatase 105 U/L (46-116); Anion Gap 11.9 mmol/L (3-11); BUN 14 mg/dL (7-18); Bilirubin, Total 0.6 mg/dL (0.2-1.0); CO2 24.1 mmol/L (21.0-32.0); CREATININE 0.83 mg/dL (0.70-1.30); Calcium 8.9 mg/dL (8.5-10.1); Chloride 99 mmol/L (98-107); Glucose 105 mg/dL (74-106); Lipase 20 U/L (73-393); Magnesium 1.8 mg/dL (1.8-2.4); Potassium 3.5 mmol/L (3.5-5.1); Sodium 135 mmol/L (136-145); Total Protein 7.4 g/dL (6.4-8.2)
[2020-07-31 17:08] LABS: Troponin I < 0.05 ng/mL (<0.06)
[2020-07-31 17:08] LABS: Bilirubin Negative (Negative); Blood Trace-intact (Negative); Clarity Clear (Clear); Glucose Negative (Negative); Ketones 40 mg/dL (Negative); Leukocyte Esterase Negative (Negative); Nitrite Negative (Negative); Urobilinogen 0.2 EU/dL (Up TO 0.2); pH 6.5 (5-8)
[2020-07-31 17:29] LABS: Bacteria Few HPF (Negative); C & S Indicated? Yes; Casts Negative LPF (Negative); Crystals Negative HPF (Negative); Epithelial Cells Few HPF (Negative); Mucus Negative (Negative); RBC 0-2 HPF (0-2)
[2020-07-31] MEDS: Omnipaque 350 MG/ML 100 ML BTL IJ (17:36)
[2020-07-31] MEDS: Normal Saline - Diluent 50 ML VIAL IV (17:38)
--- NOTE | 2020-07-31 18:30 | DI.VRAD_ITS ---
PROCEDURE INFORMATION: Exam: CT Angiography Abdomen and Pelvis With Contrast Exam date and time: 07/31/2020 4:08 PM Age: 55 years old Clinical indication: Abdominal pain; Acute; Patient HX: Pain last night, worsening TECHNIQUE: Imaging protocol: Computed tomographic angiography of the abdomen and pelvis with intravenous contrast material. 3D rendering (Not supervised by radiologist): MIP and/or 3D reconstructed images were created by the technologist. COMPARISON: CT ABDOMEN PELVIS CTA 07/31/2020 12:18 AM FINDINGS: Lungs: Likely dependent atelectasis. Otherwise clear lung bases. Heart: Heart is normal size. Aorta: Aorta is normal caliber. There is mild prominence of the abdominal aortic wall with small amount of adjacent stranding. Similar to slightly increased in prominence from prior. Celiac artery: No occlusion or significant stenosis. Renal arteries: No occlusion or significant stenosis. Iliac arteries: No significant stenosis or occlusion. Wall prominence and adjacent stranding involves proximal portions of the common iliacs. Liver: Likely hepatic steatosis. Otherwise unremarkable liver. Gallbladder and bile ducts: Unremarkable gallbladder within likely prominent fold. No biliary ductal dilation. Pancreas: Unremarkable pancreas. Spleen: Unremarkable spleen. Adrenals: The unremarkable bilateral adrenal glands. Kidneys and ureters: Similar appearance both kidneys. Stomach and bowel: Nonobstructed bowel. Appendix: Appendix is not identified. There are no convincing secondary signs of acute appendicitis however. Intraperitoneal space: No significant free fluid. No free air. Lymph nodes: Multiple prominent a small retroperitoneal nodes are redemonstrated. Bladder: Bladder is poorly distended and poorly evaluated. Reproductive: Mild prostatomegaly. Bones/joints: Scattered bony degenerative changes. Redemonstrated wedge compression deformity of T10 with greater than 50% height loss anteriorly. Similar appearance of bilateral pars defects at L5 and S1 with unchanged anterolisthesis of L5 on S1. Soft tissues: Unremarkable superficial soft tissues. IMPRESSION: 1. There is redemonstrated inflammatory change about the aorta which is otherwise unremarkable in appearance. Findings could be related to vasculitis of which there are many causes. Clinical correlation is advised. 2. Otherwise stable exam. Dictated and Authenticated by: Pasquale Rosenthal MD. Ordering:BRITTA Abreu MD
[2020-07-31 19:07] LABS: C-Reactive Protein 1.95 mg/dL (0.0-0.3)
[2020-07-31] MEDS: oxyCODONE 5 MG TAB PO (20:04)
--- NOTE | 2020-07-31 20:43 | W.MEDCONSULT ---
Date of service: 07/31/20 Time of Service: 20:43 Assessment and Plan Assessment and plan (1) Abdominal pain: Status: Acute Assessment and plan: Abdominal pain, unclear etiology. I think most likely this is some combination of constipation and perhaps UTI, and would advise bowel regimen and empiric abx pending cxx. I am not sure what to make of the question of aortitis; and even if finding is confirmed how this would relate to his current symptoms absent evidence of end organ injury from some putative vasculitis. I would advise reviewing films with radiology in AM and follow up with PCP. There is also the interesting detail of earlier shingles, with several skin lesions now in distribution of his pain more or less. These do not appear to be inflamed or infected, and are certainly not necrotic, and are not specifically tender so unclear whether this is just coincidence. A delayed post herpetic neuralgia might be a possibility here but this would be unusual to have a gap in symptoms. Altogether I do not see that the patient requires hospitalization and have so conveyed to ER. History of Present Illness History of Present Illness Chief Complaint: abd pain Narrative: 55 male reports 1-2 days of left flank pain migrating towards LLQ. Denies hematuria, does endorse urgency/frequency. Also reports constipation over past 6 days, not zero, but small output. Seen ER last night with essentially neg w/u save for small nonspecific paraaortic nodes. Returns tonight for ongoing discomfort. Repeat CT raises question of mild aortitis, though this was not reported on earlier scan in spite of report stating unchanged from prior. Lab w/u otherwise of note for absence of fever, normal white count and CRP slight elevation 1.9. I was asked to consult regarding possible need for admission. Note also self report of shingles involving LLQ 2 months ago. Review of Systems All systems reviewed & are unremarkable except as noted in HPI and below PFSH Medical History Foreign body (FB) in soft tissue (~01/04/19) GERD (gastroesophageal reflux disease) H/O hemorrhoids HTN (hypertension) Surgical History Repair of umbilical hernia S/P colonoscopy (~01/04/19) S/P hemorrhoidectomy Spinal Fusion (~2006) Tonsillectomy and adenoidectomy Social History Smoking/Tobacco Use Status: Former Tobacco Use Alcohol Intake: current Alcohol Intake frequency: holidays/special occasions only Alcohol type: beer Drug use: Never Substance use type: does not use 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 Current gender identity: male Do you feel safe at home: Yes Do you feel safe in your relationship?: Yes Exam Narrative Exam Narrative: 181-194/95-100, 68, 36.8, 12, 96% RA. HEENT unremarkable; lungs clear; heart RRR w/o MRG; abdomen soft and minimal LLQ tenderness w/o rebound or guarding; extremities w/o edema, pulses 2+/=; skin no rash, two oval shaped healing reddish-brown papules LLQ approx 1 x 2 cm each; neuro Ox3, nonfocal Results Last Vital Signs Temp 36.8 C 07/31/20 16:59 Pulse 65 07/31/20 20:16 Resp 12 07/31/20 20:20 BP 194/101 H 07/31/20 20:16 Pulse Ox 96 07/31/20 20:20 Labs Result diagrams: 07/31/20 15:50 07/31/20 15:50 Labs: Laboratory Results - last 24 hr 07/31/20 07/31/20 07/31/20 15:50 15:50 15:50 WBC 10.33 RBC 5.25 Hgb 15.1 Hct 44.5 MCV 84.8 MCH 28.8 MCHC 33.9 RDW 12.9 Plt Count 317 MPV 10.6 Immature Gran % 0.7 Neutrophils % 76.1 Lymphocytes % 14.8 Monocytes % 7.6 Eosinophils % 0.5 Basophils % 0.3 Nucleated RBC % 0 Absolute Neutrophils 7.87 H Absolute Lymphocytes 1.53 Absolute Monocytes 0.78 Absolute Eosinophils 0.05 Absolute Basophils 0.03 PT 10.0 INR 1.0 APTT 26.0 VBG Lactate Sodium 135 L Potassium 3.5 Chloride 99 Carbon Dioxide 24.1 Anion Gap 11.9 H BUN 14 D Creatinine 0.83 Estimated GFR/1.73 m2 >= 60.00 Glucose 105 Calcium 8.9 Magnesium 1.8 Total Bilirubin 0.6 AST 17 ALT 51 Alkaline Phosphatase 105 Troponin I < 0.05 C-Reactive Protein Total Protein 7.4 Albumin 3.6 Lipase 20 Urine Color Urine Clarity Urine pH Ur Specific [place] Urine Protein Urine Ketones Urine Blood Urine Nitrite Urine Bilirubin Urine Urobilinogen Ur Leukocyte Esterase Urine RBC Urine WBC Ur Epithelial Cells Urine Crystals Urine Bacteria Urine Casts Urine Mucus Ur Culture Indicated? Urine Glucose 07/31/20 07/31/20 07/31/20 15:50 16:30 17:00 WBC RBC Hgb Hct MCV MCH MCHC RDW Plt Count MPV Immature Gran % Neutrophils % Lymphocytes % Monocytes % Eosinophils % Basophils % Nucleated RBC % Absolute Neutrophils Absolute Lymphocytes Absolute Monocytes Absolute Eosinophils Absolute Basophils PT INR APTT VBG Lactate 0.8 Sodium Potassium Chloride Carbon Dioxide Anion Gap BUN Creatinine Estimated GFR/1.73 m2 Glucose Calcium Magnesium Total Bilirubin AST ALT Alkaline Phosphatase Troponin I C-Reactive Protein 1.95 H Total Protein Albumin Lipase Urine Color Yellow Urine Clarity Clear Urine pH 6.5 Ur Specific [place] 1.020 Urine Protein Negative Urine Ketones 40 H Urine Blood Trace-intact H Urine Nitrite Negative Urine Bilirubin Negative Urine Urobilinogen 0.2 Ur Leukocyte Esterase Negative Urine RBC 0-2 Urine WBC 5-10 Ur Epithelial Cells Few Urine Crystals Negative Urine Bacteria Few Urine Casts Negative Urine Mucus Negative Ur Culture Indicated? Yes Urine Glucose Negative
[2020-07-31] MEDS: Ciprofloxacin 500 MG TAB PO (20:50)
[2020-08-01 17:56] LABS: Rheumatoid Factor 13.4 IU/mL (<12.0)
[2020-08-02 15:34] LABS: ANA Interpretation Negative (Negative)
== END 2020-07-31 21:09 | disposition home or self-care (01) ==
PROVIDERS: Physician Assistant; Emergency Provider Emergency Medicine; PCP Emergency Medicine
DX: R11.2 Nausea with vomiting, unspecified (principal); R10.32 Left lower quadrant pain; R82.71 Bacteriuria; I10 Essential (primary) hypertension; R10.9 Unspecified abdominal pain
CPT/HCPCS: 36410; 36415; 80053; 83690; 87040; 96361; 96365; 96375; 99252; 99283; 99285; 74174; 81003; 81015; 83605; 83735; 84484; 85025; 85610; 85730; 86038; 86140; 86431; 87086; J0131; J2405; J3490

== ENCOUNTER 2020-08-19 13:10 | Observation (INO) | payer OTHER, SELFPAY ==
[2020-08-19] VITALS (64 sets, daily range): BP systolic 148–226; BP diastolic 95–146; PULSE 85–124; RESP 12–39; TEMP 36.2–36.7; O2SAT 78–100
--- NOTE | 2020-08-19 13:00 | RT.EKG_ITS ---
APPROVED REPORT Exam: Resting ECG Patient Location: E HR:117 bpm ECG Measurements Heart Rate 117 AXIS ME 150 P 79 QRSd 95 QRS 28 QT 327 T 91 QTc 457 Conclusion Sinus tachycardia...rate> 99 EKG shows sinus tachycardia at 117, normal axis, no STEMI, nondiagnostic EKG
[2020-08-19 13:35] LABS: Abs Immature Grans 0.08 10^3/uL (0.0-0.06); Absolute Basophil Count 0.08 10^3/uL (0.0-0.2); Absolute Eosinophil Count 0.22 10^3/uL (0.0-0.7); Absolute Lymphocyte Count 2.72 10^3/uL (1.2-3.4); Absolute Neutrophil Count 7.26 10^3/uL (1.2-6.7); Basophils % 0.7; Eosinophils % 1.9; HCT 50.2 % (40.0-50.0); HGB 17.4 g/dL (13.5-17.5); Immature Grans % 0.7; Lymphocytes % 23.6; MCHC 34.7 % (32.0-36.0); MCV 83.7 fL (80-95); MPV 9.7 fL (8.0-11.0); Monocytes % 10.1; Nucleated RBC 0 %; Platelet Count 410 10^3/uL (130-400); RDW 12.7 % (11.8-14.1); RDW-SD 38.1 fL; WBC 11.53 10^3/uL (4.4-10.8)
[2020-08-19 13:37] LABS: Absolute Monocyte Count 1.16 10^3/uL (0.1-0.8)
--- NOTE | 2020-08-19 13:40 | DI.CT_ITS ---
EXAM: CT THORAX ABD/PEL CTA TECHNIQUE: CT angiography of the chest, abdomen and pelvis was performed with bolus infusion of 125 cc of Omnipaque 350. Axial CT angiography was performed with multi-slice acquisition and multi-planar and/or 3D reconstruc tions. COMPARISON: CT CT ABDOMEN PELVIS W from 01/08/[address] ABDOMEN PELVIS CTA from 07/31/2020 FINDINGS: The lungs are clear. No pleural effusion. No evidence of pulmonary embolic disease. No thoracic aort ic dissection or aneurysm. Major branches of the thoracic aorta appear normal. No pleural effusion. No mediastinal or hilar adenopathy. Tracheobronchial tree appears intact. No focal hepatic or renal abnormality seen apart from an incidental right renal cyst.. Gallbladder a nd bile ducts are CT normal. Pancreas is unremarkable. Spleen shows unremarkable early arterial phase pattern of enhancement although the spleen is not well visualized due to motion artifact.. Adrenals appear normal bilaterally. No abdominal aortic aneurysm or dissection. Major branches of the abdominal aorta appear normal. No a bdominal or pelvic adenopathy. Normal appendix. No significant abdominal wall hernia. No focal bowel pathology. Moderate degenerative changes thoracic and lumbar spine noted, no gross destructive lesion, no fractu re identified. There is bilateral L5 spondylolysis with spondylolisthesis of L5 on S1 estimated 25 p ercent of the vertebral width. No change from prior scan of December 2018. IMPRESSION: No evidence of acute vascular abnormality of the chest, abdomen or pelvis. No other acute abnormaliti es are seen. RADIATION DOSE DELIVERED: 1,297.09mGy.cm Total DLP 1,297.09mGy.cm Total DLP DATA REPOSITORY: All CT scans at this facility are submitted to the National Radiology Data Registry (NRDR) Dose Index Registry (DIR) with the [employer] (A[employer]). RADIATION OPTIMIZATION: All CT scans at this facility use at least one of these dose optimization te chniques: automated exposure control; mA and/or kV adjustment per patient size (includes targeted exa ms where dose is matched to clinical indication); or iterative reconstruction.
[2020-08-19 13:45] LABS: INR 1.1 (0.9-1.1); Prothrombin Time 10.8 sec (9.3-11.0)
[2020-08-19] MEDS: HYDROmorphone 2 MG/ML VIAL 0.5 MG IVP ×4 (13:46→19:25)
[2020-08-19] MEDS: Normal Saline - Diluent 50 ML VIAL IV (13:47)
[2020-08-19] MEDS: Omnipaque 350 MG/ML 100 ML BTL IJ (13:49)
[2020-08-19 14:00] LABS: ALT 21 U/L (16-63); AST 10 U/L (15-37); Albumin 4.1 g/dL (3.4-5.0); Alkaline Phosphatase 90 U/L (46-116); Anion Gap 13.1 mmol/L (3-11); BUN 15 mg/dL (7-18); Bilirubin, Total 1.1 mg/dL (0.2-1.0); CO2 21.9 mmol/L (21.0-32.0); CREATININE 1.01 mg/dL (0.70-1.30); Calcium 9.8 mg/dL (8.5-10.1); Chloride 99 mmol/L (98-107); Glucose 108 mg/dL (74-106); Potassium 3.5 mmol/L (3.5-5.1); Sodium 134 mmol/L (136-145); Total Protein 8.1 g/dL (6.4-8.2)
[2020-08-19 14:01] LABS: Troponin I < 0.05 ng/mL (<0.06)
--- NOTE | 2020-08-19 14:03 | DI.MRI_ITS ---
EXAM: MR LUMBAR SPINE WO/W CLINICAL HISTORY: low back pain, leg weakness. TECHNIQUE: Multiplanar multisequence MRI was performed. COMPARISON: No exams were available for comparison FINDINGS: MR examination of the lumbosacral spine was performed according to the usual protocol with additional post contrast T1 weighted sagittal axial imaging. There is bilateral L5 spondylolysis with associated spondylolisthesis 30 percent of L5 on S1., there are associated Kira discal vertebral signal changes. No disc herniation. Bilateral neural foraminal narrowing noted. Mild disc bulges L 1 2, L2-3, L3-4, and L4-5, no disc herniation, central canal spinal stenosis or ne ural foraminal stenosis at these levels. The conus medullaris appears intact. No gross disc herniation of the lower thoracic region. Old com pression deformities of T9 and T10 vertebral bodies noted. No enhancing lesion in the spinal canal. No evidence of epidural abscess or hematoma. No paraspinal mass. IMPRESSION: No acute process. Chronic L5 on S1 spondylo listhesis as noted on previous studies. DATA REPOSITORY:
[2020-08-19 14:22] LABS: C-Reactive Protein 0.35 mg/dL (0.0-0.3)
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
[2020-08-19] MEDS: Normal Saline 500 ML IV (14:47)
[2020-08-19 14:59] LABS: ESR 12 mm/hr (1-20)
[2020-08-19] MEDS: HYDROmorphone 2 MG/ML VIAL 1 MG IVP (15:03)
[2020-08-19] MEDS: Gadoterate meglumine 20 ML VIAL 19 ML IVP (16:49)
--- NOTE | 2020-08-19 16:58 | DI.VRAD_ITS ---
PROCEDURE INFORMATION: Exam: MR Lumbar Spine Without and With Contrast. Exam date and time: 08/19/2020 4:38 PM Age: 55 years old Clinical indication: Low back pain and other: Also mid back pain; Additional info: 19 ml dotarem, no fat sat imaging per radiologist, ? spinal canal pathology TECHNIQUE: Imaging protocol: Multiplanar magnetic resonance images of the lumbar spine without and with intravenous contrast. Contrast material: DOTAREM; Contrast volume: 19 ml; Contrast route: INTRAVENOUS (IV); COMPARISON: No relevant prior studies available. FINDINGS: Vertebrae: Grade 1 anterolisthesis of L5 over S1. No abnormal enhancement. Spinal cord: Conus terminates at L2. L1-L2: Disc bulge. Bilateral facet hypertrophy. No spinal canal stenosis. Mild right neural foraminal narrowing. L2-L3: Disc bulge. No spinal canal stenosis. Moderate bilateral neural foraminal narrowing. L3-L4: Disc bulge. No spinal canal stenosis. Moderate bilateral neural foraminal narrowing. L4-L5: Disc bulge. No spinal canal stenosis. No neural foraminal narrowing. L5-S1: Moderate to severe bilateral neural foraminal narrowing. No spinal canal stenosis. Soft tissues: Unremarkable. IMPRESSION: No acute abnormality. Multilevel degenerative disc disease with neural foraminal narrowing. Mild right neural foraminal narrowing at L1-L2, moderate bilateral L2-L3, L3-L4 and moderate to severe bilateral at L5-S1. Dictated and Authenticated by: Ben Paulson MD. Ordering:BALWINDER Landry MD
[2020-08-19 17:50] LABS: Troponin I < 0.05 ng/mL (<0.06)
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
[2020-08-19] MEDS: Normal Saline Flush 10 ML SYR IVP (19:24)
[2020-08-19] MEDS: oxyCODONE 5 MG TAB PO ×2 (20:02→23:52)
[2020-08-19] MEDS: Cyclobenzaprine 10 MG TAB PO (20:03)
[2020-08-19] MEDS: Gabapentin 300 MG CAP PO (20:03)
[2020-08-19] MEDS: Zolpidem 5 MG TAB PO (20:03)
[2020-08-20] VITALS (8 sets, daily range): BP systolic 102–200; BP diastolic 67–110; PULSE 105–113; RESP 17–18; TEMP 36.6–37.1; O2SAT 96–98
[2020-08-20] MEDS: Lisinopril 10 MG TAB PO ×3 (00:25→15:05)
[2020-08-20] MEDS: Zolpidem 5 MG TAB PO (00:27)
[2020-08-20] MEDS: oxyCODONE 5 MG TAB PO ×4 (00:27→15:05)
[2020-08-20] MEDS: Gabapentin 300 MG CAP PO ×3 (06:20→19:56)
[2020-08-20] MEDS: Acetaminophen 325 MG TAB 650 MG PO ×3 (07:16→15:05)
[2020-08-20] MEDS: Cyclobenzaprine 10 MG TAB PO ×2 (07:16→13:12)
[2020-08-20] MEDS: Omeprazole 20 MG CAPCR PO (07:35)
[2020-08-20 13:08] LABS: COVID-19 RT-PCR UVMMC Result Negative (Negative)
--- NOTE | 2020-08-20 13:10 | DI.MRI_ITS ---
EXAM: MR THORACIC SPINE WO/W CLINICAL HISTORY: mid back pain. TECHNIQUE: Multiplanar multisequence MRI was performed. COMPARISON: MR MR LUMBAR SPINE WO/W from 08/19/2020 FINDINGS: MR of the thoracic spine was performed according to the usual protocol with additional post contrast T1 weighted axial and sagittal imaging. Old T9 and T10 vertebral body deformity is again noted, no change from prior studies. Spinal cord sh ows normal signal at this level with minimal cord deformity as it is draped over the posterior convex ity of the old kyphotic deformity. No disc herniation identified in the thoracic region. No spinal cord signal abnormality. No intra thecal mass or enhancing lesion. No bony lesion. Neural foramina appear intact. Spinal canal is of normal dimensions throughout. IMPRESSION: Old kyphotic compression deformity at T9/T10. No other significant findings. DATA REPOSITORY:
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
[2020-08-20] MEDS: Methocarbamol 750 MG TAB 1500 MG PO ×2 (15:05→19:56)
[2020-08-20] MEDS: Ketorolac 30 MG/ML VIAL IVP ×2 (16:16→21:27)
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
--- NOTE | 2020-08-20 16:22 | PDOC.CMIN ---
- If Service Date Differs Date of service: 08/20/20 Time of Service: 16:41 Care Management Initial Assess REASON FOR HOSPITALIZATION:: Back Pain PAST MEDICAL HISTORY/PAST SURGICAL HISTORY:: Foreign body in soft tissue, GERD, hemorrhoids, HTN, repair of umbilical hernia, colonoscopy, hemorrhoidectomy, spinal fusion, tonsillectomy and adenoidectomy PREVIOUS FUNCTIONAL STATUS/SOCIAL/FAMILY SUPPORTS:: Miquel resides with his , Maryuri in [place], [place]. 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 CURRENT FUNCTIONAL STATUS:: Miquel is lying in bed when CM meets with him. He is calm and weepy; forthcoming with information. Has patient been provided with info about the portal/API?: Yes Did the patient sign up for the portal?: Yes (Previously) CODE STATUS:: Full Code INSURANCE COVERAGE / FINANCIAL ISSUES:: [employer] CURRENT HOME/COMMUNITY SERVICES/EQUIPMENT:: No services at this time; [facility] referral initiated. PRIMARY CARE PHYSICIAN:: Trent Herron DO. POTENTIAL DISCHARGE NEEDS:: MH Consult. F/U appointment. PATIENT/FAMILY EDUCATION NEEDS:: Review discharge instructions, discuss Ask Me Three. ANTICIPATED BARRIERS TO DISCHARGE:: None identified. TRANSPORTATION:: Miquel will transport via private vehicle with his , Maryuri. PLAN:: Miquel will return home when ready per MD. [facility] cleared him from a MH standpoint with a follow up plan. CM continues to follow. Miquel will transport home via private vehicle with his , Maryuri.
--- NOTE | 2020-08-20 16:25 | PHA.REVIEW ---
Pharmacy Admission Review - Admission Clinical Review (Last Reviewed 08/19/20 @ 18:04 by Nirmal Quiroz MD) Thoracic radiculopathy due to degenerative joint disease of spine (Acute) Degenerative disc disease, lumbar (Acute) Back pain (Acute) Chest pain (Acute) Back pain (Acute) Fracture of thoracic spine (Acute) Hypertension (Acute) shellfish derived Allergy (Unknown, Verified 08/16/20 09:05) Height 5 ft 6.93 in Weight 104.3 kg - Renal Dosing Renal Dosing: BUN 15 mg/dL (7-18) 08/19/20 13:25 Creatinine 1.01 mg/dL (0.70-1.30) 08/19/20 13:25 Medications needing adjustments: Reviewed (Crcl 93.8 mL/min current meds okay) - Anticoagulation Anticoagulation: Hgb 17.4 g/dL (13.5-17.5) 08/19/20 13:25 Hct 50.2 % (40.0-50.0) H 08/19/20 13:25 Plt Count 410 10^3/uL (130-400) H 08/19/20 13:25 INR 1.1 (0.9-1.1) 08/19/20 13:25 Creatinine 1.01 mg/dL (0.70-1.30) 08/19/20 13:25 DVT Prohphylaxis: Reviewed Therapeutic Anticoagulation: N/A - Opiate Usage Evaluate Pain Scale/Pains Meds: Reviewed Scheduled Bowel Reg ordered if on Opiates?: No (mentioned to provider) - Relevant Labs ESR 12 mm/hr (1-20) 08/19/20 13:25 Sodium 134 mmol/L (136-145) L 08/19/20 13:25 Potassium 3.5 mmol/L (3.5-5.1) 08/19/20 13:25 Chloride 99 mmol/L (98-107) 08/19/20 13:25 C-Reactive Protein 0.35 mg/dL (0.0-0.3) H 08/19/20 13:25 Electrolytes, C-Reactive P, ESR: Reviewed - DM Control DM Control: Glucose 108 mg/dL (74-106) H 08/19/20 13:25 Insulin Dosing: Reviewed (no DM noted in medical history, previous A1c from 2017) - Heart Failure/AL Heart Failure/AL: Troponin I < 0.05 ng/mL (<0.06) 08/19/20 16:57 EF%, BRANDI's, B-Blockers, Diuretics: N/A - BP Control BP Control: Blood Pressure 102/67 Blood Pressure 180/110 Blood Pressure 200/108 Blood Pressure 194/110 Blood Pressure 190/88 If elevated: Reviewed (MD aware, lisinoprl dose increased clonidine PRN ordered. MD mentioned ordering amlodipine in progress note but this has not been done yet, and pts last BP was 102/67 (after now dose of lisinopril had been given).) - Qtc Review If Elevated: N/A (QTc 457 has ondansetron ordered) - IV to PO Switch IV Medications: Reviewed - Home Meds Home Med List reviewed: Reviewed Relevent Home Meds Not ordered & why?: cyclobenzaprine (was d/c'd, has methocarbamol ordered), epinephrine (PRN) - Current meds Current Medication Order Review: Intervened (Discontinued DI meds (already given), adjusted omeprazole timing based on med administration timing policy, talked to provider about multiple PPI orders and gabapentin as it was intially ordered PRN and is not benficial for neuroaptic pain if its not scheduled.) - Comments Comments/Follow Ups: Watch BP, labs and for med changes (IV to PO, BM meds).
--- NOTE | 2020-08-20 16:50 | CHAPLAIN ---
Miquel was in bed when I visited. He was pleasant and easily engaged in a conversation. While telling me why he's here, he talked about being in pain for several weeks, not being able to sleep or eat and how this changed his thinking and outlook. He told me, as he told other staff members, that he has a gun and considered shooting himself. He became teary at this point. He believes the constant, chronic pain led him to believe he would not get better. He quickly said he understands now that he would not have considered shooting himself if he was thinking normally. Miquel then talked about the people who love him, and how his is his rock. He is often quick to help out others, but said he doesn't do well receiving help, and knows he should be better at this. When asked, he said he knows where he can go for professional help, and in fact was screened by [facility] staff today. Miquel talked about feeling the heavy weight of responsibilities and at the same time being in pain and not asking for help. He could relate how this combination for factors affected him. I left when his father called. Miquel expected his to be in later to visit, and he's been in touch with his boss who is also supportive, he said.
[2020-08-20] MEDS: Gabapentin 300 MG CAP 600 MG PO (21:28)
[2020-08-20] MEDS: Normal Saline Flush 10 ML SYR IVP (21:29)
[2020-08-20] MEDS: Senna TAB 2 TAB PO (22:00)
[2020-08-20] MEDS: Polyethylene Glycol 3350 17 GM PACKET PO (22:00)
[2020-08-21] MEDS: Zolpidem 5 MG TAB PO (01:45)
[2020-08-21] MEDS: oxyCODONE 5 MG TAB PO ×3 (01:45→13:32)
[2020-08-21 03:18] VITALS: BP 130/92; PULSE 102; RESP 17; TEMP 37.2; O2SAT 96
[2020-08-21] MEDS: Normal Saline Flush 10 ML SYR IVP ×2 (03:29→10:41)
[2020-08-21] MEDS: Ketorolac 30 MG/ML VIAL IVP ×2 (03:30→10:41)
[2020-08-21 07:18] VITALS: BP 125/87; PULSE 91; RESP 18; TEMP 36.6; O2SAT 97
[2020-08-21] MEDS: diazePAM 5 MG TAB PO ×2 (07:41→13:31)
[2020-08-21] MEDS: Acetaminophen 325 MG TAB 650 MG PO (07:41)
[2020-08-21] MEDS: Omeprazole 20 MG CAPCR PO (07:41)
[2020-08-21] MEDS: Gabapentin 300 MG CAP PO ×2 (08:07→13:32)
[2020-08-21] MEDS: Methocarbamol 750 MG TAB 1500 MG PO ×2 (08:07→12:19)
[2020-08-21] MEDS: Polyethylene Glycol 3350 17 GM PACKET PO (08:07)
[2020-08-21] MEDS: Lisinopril 20 MG TAB PO (08:08)
--- NOTE | 2020-08-21 09:35 | DI.MRI_ITS ---
EXAM: MR CERVICAL SPINE WO CLINICAL HISTORY: radicular pain. TECHNIQUE: Multiplanar multisequence MRI was performed. COMPARISON: MR MRI - CERVICAL SPINE WO CONT from 01/01/2017 FINDINGS: MR examination cervical spine was performed according to to the usual protocol. Images obtained thro [facility] the posterior fossa are unremarkable. Spinal cord shows normal signal and is of normal diameter throughout. No significant findings at C2-3. At C3-4, there is prominence of the disc osteophyte complex which deforms the right lateral recess, n o definite cord impingement. Bilateral neural foraminal narrowing noted. At C4-5, the there is prominence of the disc osteophyte complex with borderline central canal spinal stenosis and bilateral neural foraminal stenosis. No focal disc herniation. At C5-6, there is an anterior vertebral fusion. There is bilateral neural foraminal narrowing. Ther e is prominence of the disc osteophyte complex right paracentral and right lateral with mild deformit y of the anterior cord surface suggesting impingement. At C6-7, there is prominence of the disc osteophyte complex, particularly right lateral, with marked narrowing of the right lateral recess. No central canal spinal stenosis. Bilateral neural foraminal stenosis noted. No significant findings at C7-T1. IMPRESSION: Anterior fusion at C5-6. Multilevel prominence of the disc osteophyte complex, please see above discussion for findings at ind ividual levels. Multilevel neural foraminal narrowing bilaterally. DATA REPOSITORY:
[2020-08-21 11:01] VITALS: BP 121/68; PULSE 105; RESP 18; TEMP 36.2; O2SAT 96
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
--- NOTE | 2020-08-21 15:39 | CHAPLAIN ---
Miquel was resting in bed when I visited. He said he was able to get some sleep last night, so that's been two nights in a row. He met with a male doctor (he didn't remember the doctor's name but thought he was from [facility] who changed his med regime and Miquel's blood pressure has dropped. Miquel said he can feel this change, and is happy about it. He will see the neurologist later today. Miquel said he believes he is on the right track now, and talked again about how he was off the rails, and at his worst when his pain wasn't controlled, he hadn't slept in three weeks, he wasn't eating, lost 30 pounds and at one pound thought of suicide. He no longer feels like this, he said. He also talked about all the people who love him. His parents and in laws are aging and that has been difficult to watch, but Miquel said he has gained wisdom with age, and also relies on his for support. She is his rock, he said.
--- NOTE | 2020-08-21 16:26 | CMDISCH_ITS ---
- If Service Date Differs Date of service: 08/21/20 Time of Service: 16:26 LACE Index Scoring Tool - Questions: Length of Stay (in days): 3 Acuity (Admit via E.D.?): Yes E.D. Visits: 5 - Answers: Total Score: 10 Risk of Readmission: High Risk Care Management Discharge Reason for Hospitalization: Back Pain Discharge Plan: Miquel will return home with no additional services. He will follow up with his PCP, neurology, [facility], and the spine clinic at [facility]. A referral was also sent to the pain clinic at [facility] for review. His will drive him home via private vehicle. He is happy to be going home. Patient/Family Education Needs: Review discharge instructions regarding activity levels and medications, discussion of self care needs including ask me three.
--- NOTE | 2020-08-22 11:41 | PDOC.CMPRO ---
Care Management Progress Note PADMINI rec'd call from Miquel requesting support filling out [employer] initial disability paperwork. PADMINI directed Miquel to leave it at the Volunteers desk, PADMINI retrieved it, collected MD signature, completed document and returned it to Volunteer's desk for Miquel to collect.
== END 2020-08-21 15:09 | disposition home or self-care (01) ==
LOC: ER 18:27 → MS 19:01
PROVIDERS: Registered Nurse Emergency; Student in an Organized Health Care Education/Training Program; Admitting Provider General Practice; Emergency Provider Physician Assistant; PCP Emergency Medicine; Visit Provider General Practice
DX: M47.24 Other spondylosis with radiculopathy, thoracic region (principal); M54.9 Dorsalgia, unspecified; Z11.59 Encounter for screening for other viral diseases; I10 Essential (primary) hypertension; K21.9 Gastro-esophageal reflux disease without esophagitis; Z87.891 Personal history of nicotine dependence; F32.9 Major depressive disorder, single episode, unspecified; S22.071S Stable burst fracture of T9-T10 vertebra, sequela; M40.294 Other kyphosis, thoracic region; R20.2 Paresthesia of skin; M25.511 Pain in right shoulder; M54.2 Cervicalgia; J44.9 Chronic obstructive pulmonary disease, unspecified; M47.892 Other spondylosis, cervical region; M47.816 Spondylosis without myelopathy or radiculopathy, lumbar region
CPT/HCPCS: 36415; 36416; 72158; 74177; 80053; 82962; 85652; 86850; 86900; 86901; 93005; 96361; 96374; 96376; 99222; 99223; 99226; 99239; 99285; U0003; 72141; 72157; 84484; 85025; 85610; 86140; 93010; 99217; 99219; G0378; J1885; J3490

== ENCOUNTER 2020-09-10 16:36 | Inpatient (IN) | payer OTHER, SELFPAY ==
[2020-09-10] VITALS (50 sets, daily range): BP systolic 134–208; BP diastolic 82–129; PULSE 83–111; RESP 13–27; TEMP 36.7–36.8; O2SAT 94–99
--- NOTE | 2020-09-10 16:45 | RT.EKG_ITS ---
APPROVED REPORT Exam: Resting ECG Patient Location: E HR:100 bpm ECG Measurements Heart Rate 100 AXIS [place] 170 P 64 QRSd 96 QRS 2 QT 346 T 34 QTc 448 Conclusion Sinus tachycardia...rate> 99 ST elevation, consider anterior injury...ST >0.15mV, V1-V5. Concern for STEMI w/ 2mm ST elevation in V1-V3 -- appears new compared to previous. Questionable 1mm ST elevation in II.
[2020-09-10 17:06] LABS: Abs Immature Grans 0.05 10^3/uL (0.0-0.06); Absolute Basophil Count 0.07 10^3/uL (0.0-0.2); Absolute Eosinophil Count 0.33 10^3/uL (0.0-0.7); Absolute Lymphocyte Count 2.57 10^3/uL (1.2-3.4); Absolute Monocyte Count 0.93 10^3/uL (0.1-0.8); Absolute Neutrophil Count 5.49 10^3/uL (1.2-6.7); Basophils % 0.7; Eosinophils % 3.5; HCT 43.6 % (40.0-50.0); HGB 14.9 g/dL (13.5-17.5); Immature Grans % 0.5; Lymphocytes % 27.2; MCH 29.3 pg (27.0-33.0); MCHC 34.2 % (32.0-36.0); MCV 85.8 fL (80-95); MPV 9.4 fL (8.0-11.0); Monocytes % 9.9; Neutrophils % 58.2; Nucleated RBC 0 %; Platelet Count 333 10^3/uL (130-400); RBC 5.08 10^6/uL (4.36-5.78); RDW 12.6 % (11.8-14.1); RDW-SD 39.7 fL; WBC 9.44 10^3/uL (4.4-10.8)
--- NOTE | 2020-09-10 17:15 | DI.RAD_ITS ---
EXAM: XR PORTABLE CHEST AP CLINICAL HISTORY: chest pain with radiation to back TECHNIQUE: COMPARISON: CR XR CHEST 2V PA LATERAL from 07/04/2019 FINDINGS: Portable upright chest at 1735 hours. There is mild cardiomegaly. There is a poor inspiration. There are abnormal radiodensities in the retrocardiac portion of the left lung, these may represent a reas of atelectasis or consolidation, pleural effusion not excluded. These findings were not present on prior radiograph July 04. IMPRESSION: Left basilar radiodensities, pulmonary versus pleural, PA and lateral chest suggested for further donovan luation. RADIATION DOSE DELIVERED: Total DLP
[2020-09-10 17:18] LABS: ALT 15 U/L (16-63); AST 7 U/L (15-37); Albumin 3.6 g/dL (3.4-5.0); Alkaline Phosphatase 95 U/L (46-116); Anion Gap 5.9 mmol/L (3-11); BUN 16 mg/dL (7-18); Bilirubin, Total 0.4 mg/dL (0.2-1.0); CO2 27.1 mmol/L (21.0-32.0); CREATININE 0.76 mg/dL (0.70-1.30); Calcium 9.3 mg/dL (8.5-10.1); Chloride 102 mmol/L (98-107); Glucose 108 mg/dL (74-106); Potassium 3.9 mmol/L (3.5-5.1); Sodium 135 mmol/L (136-145); Total Protein 7.3 g/dL (6.4-8.2)
--- NOTE | 2020-09-10 17:27 | W.ED.GENAD ---
Discharge Plan Disposition Patient Disposition: [facility] INPATIENT Condition: Stable Discharge Details Clinical Impression: Hypertensive urgency, Chest pain, Abdominal pain, Back pain Admit Date/Time: 09/10/20 19:29 Admit Provider: Roxanna Meeks Attending Provider: Roxanna Meeks Primary Care Provider: Trent Herron ED Provider: Lois Gordillo Discharge Data Discharge Date/Time-TO BE ENTERED AT DEPARTURE: 09/10/20 20:35 Medical Decision Making 1700 -- 55-year-old male with a history of hypertension, GERD, COPD and former alcoholism who presents with sharp substernal chest pain with radiation to his back and diffuse abdominal pain for the past several weeks, worse over the past week. EKG notes a rate of 100, sinus with [address] elevation in V1, V2 and V3 with concern for STEMI. [address] elevation in lead II. [facility] transfer center called stat. Patient in severe pain and diaphoretic. Will start nitro drip. At time of discussing with [facility] cardiology, patient's portable chest resulted and I have concern for widened mediastinum. Discussed with [facility] cardiology who does not feel this is a STEMI. Will refer for stat CT chest and abdomen and pelvis. Patient's blood pressure 203/116. Will start esmolol infusion. Patient reassessed and pain slightly improving on nitro drip. Will give a dose of morphine. 1800 -- chest appears negative for dissection. Dose of aspirin given. Patient reassessed and still complaining of pain /10. Images reviewed with [facility] vascular surgery who agrees that there is no appearance of dissection. Formal virtual radiology reading negative for any acute findings. Repeat EKG unchanged. Repeat troponin negative. Patient reassessed and he still complaining of pain. Blood pressure 164/107. Case discussed again with [facility] cardiology -presentation not consistent with ACS. Consider other underlying possibilities such as anxiety and obtaining UDS. Recommend stress test but states can be done outpatient. 1914 -- Case discussed with hospitalist - accepts patient for admission for observation overnight with trending troponins and EKG. Will consider outpatient stress test and EGD. We will give a dose of Ativan and Toradol. Medical Records Medical records reviewed: Yes I reviewed the patient's medical records. Imaging Data Radiologic Study: Radiologist's impression: XR Chest, 1 View Exam date and time: 09/10/2020 5:37 PM Age: 55 years old Clinical indication: Angina, Chest pain with radiation to back TECHNIQUE: Imaging protocol: XR of the chest Views: 1 view. COMPARISON: CT THORAX ABD/PEL CTA 08/19/2020 1:34 PM FINDINGS: Tubes, catheters and devices: Cardiac leads superimposed over the chest. Lungs: Area of consolidation and/or atelectasis in the left retrocardiac region. Pleural space: No pleural fluid collection. Heart/Mediastinum: Heart size is prominent but within normal limits for an AP projection of the chest. Bones/joints: Spinal degenerative changes. Prior cervical spine surgery. IMPRESSION: 1. Area of consolidation and/or atelectasis in the left retrocardiac region. 2. No congestive changes. CT Angiography Chest With Contrast Exam date and time: 09/10/2020 6:11 PM Age: 55 years old Clinical indication: Substernal chest pain, R/O dissection TECHNIQUE: Imaging protocol: Computed tomographic angiography of the chest with intravenous contrast. 3D rendering (Not supervised by radiologist): MIP and/or 3D reconstructed images were created by the technologist. Contrast material: OMNIPAQUE 350; Contrast volume: 100 ml; Contrast route: INTRAVENOUS (IV); COMPARISON: CT THORAX ABD/PEL CTA 08/19/2020 1:34 PM FINDINGS: Pulmonary arteries: No evidence of pulmonary embolism. Aorta: Normal caliber thoracic aorta without dissection or aneurysm. Lungs: Compared to 08/19/2020, new areas of consolidation and/or atelectasis within the medial left lower lobe and the posterior lingula. Areas of right lower lobe linear parenchymal scarring or subsegmental collapse / atelectasis. Pleural space: No pleural fluid collection. No pneumothorax. Heart: No right ventricular strain. Trace anterior pericardial fluid. Lymph nodes: Unremarkable. No enlarged lymph nodes. Bones/joints: Spinal degenerative changes. Old T10 compression fracture. Soft tissues: Unremarkable. IMPRESSION: 1. Normal caliber thoracic aorta without dissection or aneurysm. 2. No evidence of pulmonary embolism. 3. Compared to 08/19/2020, new areas of consolidation and/or atelectasis within the medial left lower lobe and the posterior lingula. 4. Areas of right lower lobe linear parenchymal scarring or subsegmental collapse / atelectasis. CT Angiography Abdomen and Pelvis With Contrast Exam date and time: 09/10/2020 6:11 PM Age: 55 years old Clinical indication: Substernal chest pain, R/O dissection TECHNIQUE: Imaging protocol: Computed tomographic angiography of the abdomen and pelvis with intravenous contrast material. 3D rendering (Not supervised by radiologist): MIP and/or 3D reconstructed images were created by the technologist. Radiation optimization: All CT scans at this facility use at least one of these dose optimization techniques: automated exposure control; mA and/or kV adjustment per patient size (includes targeted exams where dose is matched to clinical indication); or iterative reconstruction. Contrast material: OMNIPAQUE 350; Contrast volume: 100 ml; Contrast route: INTRAVENOUS (IV); COMPARISON: CT THORAX ABD/PEL CTA 08/19/2020 1:34 PM FINDINGS: Aorta: Normal caliber abdominal aorta without dissection or aneurysm. Celiac trunk and mesenteric arteries: No occlusion or significant stenosis. Renal arteries: No occlusion or significant stenosis. Right iliac arteries: No occlusion or significant stenosis. Left iliac arteries: No occlusion or significant stenosis. Liver: Liver fatty infiltration. Gallbladder and bile ducts: Unremarkable. No calcified stones. No ductal dilation. Pancreas: Unremarkable. No mass. No ductal dilation. Spleen: Unremarkable. No splenomegaly. Adrenals: Unremarkable. No mass. Kidneys and ureters: 19 mm posterior left renal cortical cyst. No hydronephrosis. Right extrarenal pelvis. Stomach and bowel: Unremarkable. No obstruction. No mucosal thickening. Appendix: Prior appendectomy. Intraperitoneal space: No free air. No significant fluid collection. Lymph nodes: Unremarkable. No enlarged lymph nodes. Urinary bladder: Unremarkable. No mass. Reproductive: Unremarkable as visualized. Bones/joints: Spinal degenerative changes. L5-S1 spondylolisthesis with associated spondylolysis. Soft tissues: Unremarkable. IMPRESSION: Normal caliber abdominal aorta without dissection or aneurysm. No acute intra-abdominal or pelvic process. Lab Data Lab results reviewed: Yes I reviewed the patient's lab results. Labs: Laboratory Tests Range/Units 09/10/20 09/10/20 09/10/20 16:52 16:55 16:55 WBC (4.4-10.8) 10^3/uL 9.44 RBC (4.36-5.78) 10^6/uL 5.08 Hgb (13.5-17.5) g/dL 14.9 Hct (40.0-50.0) % 43.6 MCV (80-95) fL 85.8 MCH (27.0-33.0) pg 29.3 MCHC (32.0-36.0) % 34.2 RDW (11.8-14.1) % 12.6 Plt Count (130-400) 10^3/uL 333 MPV (8.0-11.0) fL 9.4 Immature Gran % 0.5 Neutrophils % 58.2 Lymphocytes % 27.2 Monocytes % 9.9 Eosinophils % 3.5 Basophils % 0.7 Nucleated RBC % % 0 Absolute Neutrophils (1.2-6.7) 10^3/uL 5.49 Absolute Lymphocytes (1.2-3.4) 10^3/uL 2.57 Absolute Monocytes (0.1-0.8) 10^3/uL 0.93 H Absolute Eosinophils (0.0-0.7) 10^3/uL 0.33 Absolute Basophils (0.0-0.2) 10^3/uL 0.07 Sodium (136-145) mmol/L 135 L Potassium (3.5-5.1) mmol/L 3.9 Chloride (98-107) mmol/L 102 Carbon Dioxide (21.0-32.0) mmol/L 27.1 Anion Gap (3-11) mmol/L 5.9 BUN (7-18) mg/dL 16 Creatinine (0.70-1.30) mg/dL 0.76 Estimated GFR/1.73 m2 (mL/min/1.73m2) >= 60.00 Glucose (74-106) mg/dL 108 H Calcium (8.5-10.1) mg/dL 9.3 Magnesium (1.8-2.4) mg/dL 2.0 Total Bilirubin (0.2-1.0) mg/dL 0.4 AST (15-37) U/L 7 L ALT (16-63) U/L 15 L Alkaline Phosphatase (46-116) U/L 95 Troponin I (<0.06) ng/mL < 0.05 Total Protein (6.4-8.2) g/dL 7.3 Albumin (3.4-5.0) g/dL 3.6 Urine Color (Yellow) Urine Clarity (Clear) Urine pH (5-8) Ur Specific [place] (1.005-1.025) Urine Protein (Negative) mg/dL Urine Ketones (Negative) mg/dL Urine Blood (Negative) Urine Nitrite (Negative) Urine Bilirubin (Negative) Urine Urobilinogen (Up TO 0.2) EU/dL Ur Leukocyte Esterase (Negative) Urine Glucose (Negative) mg/dL Range/Units 09/10/20 09/10/20 18:40 18:44 WBC (4.4-10.8) 10^3/uL RBC (4.36-5.78) 10^6/uL Hgb (13.5-17.5) g/dL Hct (40.0-50.0) % MCV (80-95) fL MCH (27.0-33.0) pg MCHC (32.0-36.0) % RDW (11.8-14.1) % Plt Count (130-400) 10^3/uL MPV (8.0-11.0) fL Immature Gran % Neutrophils % Lymphocytes % Monocytes % Eosinophils % Basophils % Nucleated RBC % % Absolute Neutrophils (1.2-6.7) 10^3/uL Absolute Lymphocytes (1.2-3.4) 10^3/uL Absolute Monocytes (0.1-0.8) 10^3/uL Absolute Eosinophils (0.0-0.7) 10^3/uL Absolute Basophils (0.0-0.2) 10^3/uL Sodium (136-145) mmol/L Potassium (3.5-5.1) mmol/L Chloride (98-107) mmol/L Carbon Dioxide (21.0-32.0) mmol/L Anion Gap (3-11) mmol/L BUN (7-18) mg/dL Creatinine (0.70-1.30) mg/dL Estimated GFR/1.73 m2 (mL/min/1.73m2) Glucose (74-106) mg/dL Calcium (8.5-10.1) mg/dL Magnesium (1.8-2.4) mg/dL Total Bilirubin (0.2-1.0) mg/dL AST (15-37) U/L ALT (16-63) U/L Alkaline Phosphatase (46-116) U/L Troponin I (<0.06) ng/mL < 0.05 Total Protein (6.4-8.2) g/dL Albumin (3.4-5.0) g/dL Urine Color (Yellow) Yellow Urine Clarity (Clear) Clear Urine pH (5-8) 7.0 Ur Specific [place] (1.005-1.025) 1.015 Urine Protein (Negative) mg/dL Negative Urine Ketones (Negative) mg/dL Negative Urine Blood (Negative) Negative Urine Nitrite (Negative) Negative Urine Bilirubin (Negative) Negative Urine Urobilinogen (Up TO 0.2) EU/dL 0.2 Ur Leukocyte Esterase (Negative) Negative Urine Glucose (Negative) mg/dL Negative ECG Data Attestation: I personally reviewed and interpreted this ECG (s) as follows: Interpretation: #1 -- Rate of 100, sinus, [address] elevation in V1, V2 and V3. [address] elevation in lead II. ID 170. QRS 96. QTc 448. #2 -- Rate of 98, sinus, [address] elevation in V1, V2 and V3. [address] elevation in lead II. ID 171. QRS 101. QTc 465. EKGs reviewed with [facility] cardiology who feel that this is likely early repolarization rather than STEMI in both EKGs. HPI General Mode of arrival: wheelchair. Date/Time Provider Initiated Documentation: 09/10/20 16:41. Limitations to Documentation: no limitations. Information obtained by: patient. HPI Narrative: Patient is a 55-year-old male with a history of GERD, COPD, former alcoholism who presents for chest, abdomen and back pain for the past several weeks, worse over the past week. He describes the chest pain as constant, sharp with radiation straight through to his back. He also admits to shortness of breath but denies any fever or cough. Patient has been seen here multiple times for similar complaints with a recent negative CT chest and abdomen a few weeks ago. Related Data Home Medications Medication Instructions Recorded Confirmed omeprazole magnesium [Prilosec OTC] 20 mg PO DAILY 12/25/16 09/10/20 mirtazapine 15 mg tablet 15 mg PO QHS #30 tab 08/30/20 09/10/20 acetaminophen 1,000 mg PO TID PRN PRN 09/10/20 09/10/20 celecoxib 200 mg PO TID PRN PRN 09/10/20 09/10/20 gabapentin 300 - 600 mg PO DIRECTED 09/10/20 09/10/20 lisinopril 20 mg PO HS 09/10/20 09/10/20 Previous Rx's Medication Instructions Recorded mirtazapine 15 mg tablet 15 mg PO QHS #30 tab 08/30/20 Allergies Allergy/AdvReac Type Severity Reaction Status Date / Time shellfish derived Allergy Unknown Verified 09/10/20 16:49 General Stated Complaint: GenMedical ALMAZ: 3 Review of Systems All systems reviewed & are unremarkable except as noted in HPI and below Constitutional Constitutional: Reports as per HPI, Denies chills and Denies fever(s) Eyes Eyes: Denies blurry vision ENT Ears, Nose, Mouth, and Throat: Denies dizziness, Denies sore throat and Denies throat swelling Cardiovascular Cardiovascular: Reports chest pain and Denies dyspnea Respiratory Respiratory: Denies cough and Denies dyspnea Gastrointestinal Gastrointestinal: Reports abdominal pain, Denies diarrhea and Denies vomiting Genitourinary Genitourinary: Denies hematuria and Denies dysuria Musculoskeletal Musculoskeletal: Denies back pain and Denies numbness Integumentary/Breasts Skin/Breast: Denies lesions and Denies rash Neurologic Neurologic: Denies dizziness, Denies localized weakness and Denies numbness Allergic/Immunologic Allergic/Immunologic: Denies throat swelling [facility] Medical History Back pain Cervical spinal stenosis cervical spine fusion 2006-Dr. Christian C4 right foraminotomy Dr Christian 03/31 Chronic obstructive lung disease Foreign body (FB) in soft tissue (~01/04/19) Fracture of thoracic spine GERD (gastroesophageal reflux disease) H/O hemorrhoids History of alcoholism and drug abuse HTN (hypertension) Lower urinary tract symptoms (LUTS) (11/29/15) Osteomyelitis of lower leg (10/14/05) foot Surgical History History of spinal fusion History of umbilical hernia repair S/P colonoscopy (~01/04/19) S/P hemorrhoidectomy Spinal Fusion (~2006) Status post tonsillectomy and adenoidectomy Family History Other Adopted Social History Smoking/Tobacco Use Status: Former Tobacco Use Tobacco: How many years used: 15 Smoking risk assessment performed?: Yes Alcohol Intake: former Drug use: Never Substance use type: does not use Household members: spouse 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 Current gender identity: male Do you feel safe at home: Yes Do you feel safe in your relationship?: Yes Exam Const General: cooperative, uncomfortable and acute distress moderate Orientation: alert, awake and oriented x3 HENMT Head: normal to inspection Ears: hearing grossly normal bilaterally and external ears normal General nose exam: external nose normal Face and sinus: normal facial exam Mouth: oral mucosae normal Teeth and gingiva: dentition normal Throat: posterior oropharynx normal Eyes General: appearance normal, both eyes and all related structures Eyelids: eyelids normal Pupils: PERRL EOM: EOM intact bilaterally Neck Neck: normal visual inspection Lymphatic: no lymphadenopathy noted Chest Chest: normal inspection of the chest Resp Effort & Inspection: normal respiratory effort and able to speak in complete sentences Auscultation: clear to auscultation bilaterally Cardio Rate: tachycardic Rhythm: regular rhythm GI Inspection: normal to inspection Palpation: soft, not firm, no guarding, no hepatosplenomegaly, no masses and tender (diffuse) Auscultation: hypoactive bowel sounds Skin General skin exam: no rashes or lesions noted Neuro General: patient alert, patient awake and moves all extremities Cognition: normal cognition Speech: speech normal Gait: normal gait Motor: muscle tone normal throughout Sensory Exam: no sensory deficits noted Extrem General: normal to inspection, full ROM, capillary refill normal and no edema Psych Appearance: grossly normal Mental Status: mental status grossly normal Speech and Movement: speech and movement normal Affect: normal affect Thought Process: normal Course Vital Signs Vital signs: Vital Signs Temperature 98.1 F 09/10/20 16:43 Pulse 107 H 09/10/20 16:43 Respiratory Rate 20 09/10/20 16:43 Blood Pressure 165/103 H 09/10/20 16:43 Pulse Oximetry 97 09/10/20 16:43 Temperature 98.1 F 09/10/20 16:43 Temperature Source Temporal Artery Scan 09/10/20 16:43 Pulse 107 H 09/10/20 16:43 Respiratory Rate 20 09/10/20 16:43 Respiratory Effort Short of Breath 09/10/20 17:16 Respiratory Depth Shallow 09/10/20 17:16 Respiratory Pattern Normal 09/10/20 17:16 Blood Pressure 165/103 H 09/10/20 16:43 Blood Pressure Position Supine 09/10/20 16:43 Pulse Oximetry 97 09/10/20 16:43 Oxygen Delivery Method Room Air 09/10/20 16:43 Oxygen Flow Rate 0 09/10/20 16:43 Pain Level 9 09/10/20 16:43 Lab/Test Results Lab/Test Results: Laboratory Tests Range/Units 09/10/20 09/10/20 16:55 16:55 WBC (4.4-10.8) 10^3/uL 9.44 RBC (4.36-5.78) 10^6/uL 5.08 Hgb (13.5-17.5) g/dL 14.9 Hct (40.0-50.0) % 43.6 MCV (80-95) fL 85.8 MCH (27.0-33.0) pg 29.3 MCHC (32.0-36.0) % 34.2 RDW (11.8-14.1) % 12.6 Plt Count (130-400) 10^3/uL 333 MPV (8.0-11.0) fL 9.4 Immature Gran % 0.5 Neutrophils % 58.2 Lymphocytes % 27.2 Monocytes % 9.9 Eosinophils % 3.5 Basophils % 0.7 Nucleated RBC % % 0 Absolute Neutrophils (1.2-6.7) 10^3/uL 5.49 Absolute Lymphocytes (1.2-3.4) 10^3/uL 2.57 Absolute Monocytes (0.1-0.8) 10^3/uL 0.93 H Absolute Eosinophils (0.0-0.7) 10^3/uL 0.33 Absolute Basophils (0.0-0.2) 10^3/uL 0.07 Sodium (136-145) mmol/L 135 L Potassium (3.5-5.1) mmol/L 3.9 Chloride (98-107) mmol/L 102 Carbon Dioxide (21.0-32.0) mmol/L 27.1 Anion Gap (3-11) mmol/L 5.9 BUN (7-18) mg/dL 16 Creatinine (0.70-1.30) mg/dL 0.76 Estimated GFR/1.73 m2 (mL/min/1.73m2) >= 60.00 Glucose (74-106) mg/dL 108 H Calcium (8.5-10.1) mg/dL 9.3 Total Bilirubin (0.2-1.0) mg/dL 0.4 AST (15-37) U/L 7 L ALT (16-63) U/L 15 L Alkaline Phosphatase (46-116) U/L 95 Total Protein (6.4-8.2) g/dL 7.3 Albumin (3.4-5.0) g/dL 3.6 Critical Care Time Critical Care Time Critical Care Time: Yes Total Critical Care Time: 60 Attestation: I spent 60 minutes of critical care time with this patient. This does not include time spent on separately reported billable procedures.
--- NOTE | 2020-09-10 17:30 | DI.CT_ITS ---
EXAM: CT THORAX ABD/PEL CTA TECHNIQUE: CT angiography of the chest, abdomen and pelvis was performed with bolus infusion of 100 cc of Omnipaque 350. Axial CT angiography was performed with multi-slice acquisition and multi-planar and/or 3D reconstruc tions. COMPARISON: CT CT THORAX ABD/PEL CTA from 08/19/2020 FINDINGS: There are significant areas atelectasis and/or consolidation of the left lung base. Lungs otherwise appear clear.. No pleural effusion. No evidence of pulmonary embolic disease. No thoracic aortic dis section or aneurysm. Major branches of the thoracic aorta appear normal. No pleural effusion. No med iastinal or hilar adenopathy. Tracheobronchial tree appears intact. No focal hepatic or renal abnormality seen apart from a small incidental left posterior renal cortica l cyst.. Gallbladder and bile ducts are CT normal. Pancreas is unremarkable. Spleen shows unremarkab le early arterial phase pattern of enhancement. No abdominal aortic aneurysm or dissection. Major branches of the abdominal aorta appear normal. No a bdominal or pelvic adenopathy. Normal appendix. No significant abdominal wall hernia. No focal bowel pathology. IMPRESSION: No evidence of acute vascular abnormality of the chest, abdomen or pelvis. There is atelectasis and/or consolidation involving the left lung base, predominantly the left lower. Appropriate follow-up studies requested. RADIATION DOSE DELIVERED: 1,351.79mGy.cm Total DLP 1,351.79mGy.cm Total DLP DATA REPOSITORY: All CT scans at this facility are submitted to the National Radiology Data Registry (NRDR) Dose Index Registry (DIR) with the [employer] ([employer]). RADIATION OPTIMIZATION: All CT scans at this facility use at least one of these dose optimization te chniques: automated exposure control; mA and/or kV adjustment per patient size (includes targeted exa ms where dose is matched to clinical indication); or iterative reconstruction.
[2020-09-10] MEDS: Normal Saline 500 ML IV (17:45)
--- NOTE | 2020-09-10 17:54 | DI.VRAD_ITS ---
PROCEDURE INFORMATION: Exam: XR Chest, 1 View Exam date and time: 09/10/2020 5:37 PM Age: 55 years old Clinical indication: Angina, Chest pain with radiation to back TECHNIQUE: Imaging protocol: XR of the chest Views: 1 view. COMPARISON: CT THORAX ABD/PEL CTA 08/19/2020 1:34 PM FINDINGS: Tubes, catheters and devices: Cardiac leads superimposed over the chest. Lungs: Area of consolidation and/or atelectasis in the left retrocardiac region. Pleural space: No pleural fluid collection. Heart/Mediastinum: Heart size is prominent but within normal limits for an AP projection of the chest. Bones/joints: Spinal degenerative changes. Prior cervical spine surgery. IMPRESSION: 1. Area of consolidation and/or atelectasis in the left retrocardiac region. 2. No congestive changes. Dictated and Authenticated by: Emanuel aHynes MD. Ordering:BRITTA Abreu MD
[2020-09-10] MEDS: ESMOLOL 2,500 MG/250 ML BAG 27.215 MG IV (17:56)
[2020-09-10] MEDS: Omnipaque 350 MG/ML 100 ML BTL IV (18:02)
[2020-09-10 18:07] LABS: Troponin I < 0.05 ng/mL (<0.06)
[2020-09-10] MEDS: Normal Saline - Diluent 50 ML VIAL IV (18:19)
--- NOTE | 2020-09-10 18:30 | RT.EKG_ITS ---
APPROVED REPORT Exam: Resting ECG Patient Location: E HR:98 bpm ECG Measurements Heart Rate 98 AXIS WY 171 P 74 QRSd 101 QRS 16 QT 365 T 31 QTc 465 Conclusion Sinus rhythm...normal P axis, V-rate 60- 99 ST elevation, consider anterior injury...ST >0.15mV, V1-V5. No acute change from previous. Reviewed with [facility] cardiology - appears more c/w early repolarization in V1-V3 and NOT STEMI.
[2020-09-10 18:53] LABS: Bilirubin Negative (Negative); Blood Negative (Negative); Clarity Clear (Clear); Glucose Negative (Negative); Ketones Negative (Negative); Leukocyte Esterase Negative (Negative); Nitrite Negative (Negative); Specific Gravity 1.015 (1.005-1.025); Urobilinogen 0.2 EU/dL (Up TO 0.2)
[2020-09-10] MEDS: Aspirin 325 MG TAB PO (18:55)
--- NOTE | 2020-09-10 19:02 | DI.VRAD_ITS ---
PROCEDURE INFORMATION: Exam: CT Angiography Chest With Contrast Exam date and time: 09/10/2020 6:11 PM Age: 55 years old Clinical indication: Substernal chest pain, R/O dissection TECHNIQUE: Imaging protocol: Computed tomographic angiography of the chest with intravenous contrast. 3D rendering (Not supervised by radiologist): MIP and/or 3D reconstructed images were created by the technologist. Contrast material: OMNIPAQUE 350; Contrast volume: 100 ml; Contrast route: INTRAVENOUS (IV); COMPARISON: CT THORAX ABD/PEL CTA 08/19/2020 1:34 PM FINDINGS: Pulmonary arteries: No evidence of pulmonary embolism. Aorta: Normal caliber thoracic aorta without dissection or aneurysm. Lungs: Compared to 08/19/2020, new areas of consolidation and/or atelectasis within the medial left lower lobe and the posterior lingula. Areas of right lower lobe linear parenchymal scarring or subsegmental collapse / atelectasis. Pleural space: No pleural fluid collection. No pneumothorax. Heart: No right ventricular strain. Trace anterior pericardial fluid. Lymph nodes: Unremarkable. No enlarged lymph nodes. Bones/joints: Spinal degenerative changes. Old T10 compression fracture. Soft tissues: Unremarkable. IMPRESSION: 1. Normal caliber thoracic aorta without dissection or aneurysm. 2. No evidence of pulmonary embolism. 3. Compared to 08/19/2020, new areas of consolidation and/or atelectasis within the medial left lower lobe and the posterior lingula. 4. Areas of right lower lobe linear parenchymal scarring or subsegmental collapse / atelectasis. PROCEDURE INFORMATION: Exam: CT Angiography Abdomen and Pelvis With Contrast Exam date and time: 09/10/2020 6:11 PM Age: 55 years old Clinical indication: Substernal chest pain, R/O dissection TECHNIQUE: Imaging protocol: Computed tomographic angiography of the abdomen and pelvis with intravenous contrast material. 3D rendering (Not supervised by radiologist): MIP and/or 3D reconstructed images were created by the technologist. Radiation optimization: All CT scans at this facility use at least one of these dose optimization techniques: automated exposure control; mA and/or kV adjustment per patient size (includes targeted exams where dose is matched to clinical indication); or iterative reconstruction. Contrast material: OMNIPAQUE 350; Contrast volume: 100 ml; Contrast route: INTRAVENOUS (IV); COMPARISON: CT THORAX ABD/PEL CTA 08/19/2020 1:34 PM FINDINGS: Aorta: Normal caliber abdominal aorta without dissection or aneurysm. Celiac trunk and mesenteric arteries: No occlusion or significant stenosis. Renal arteries: No occlusion or significant stenosis. Right iliac arteries: No occlusion or significant stenosis. Left iliac arteries: No occlusion or significant stenosis. Liver: Liver fatty infiltration. Gallbladder and bile ducts: Unremarkable. No calcified stones. No ductal dilation. Pancreas: Unremarkable. No mass. No ductal dilation. Spleen: Unremarkable. No splenomegaly. Adrenals: Unremarkable. No mass. Kidneys and ureters: 19 mm posterior left renal cortical cyst. No hydronephrosis. Right extrarenal pelvis. Stomach and bowel: Unremarkable. No obstruction. No mucosal thickening. Appendix: Prior appendectomy. Intraperitoneal space: No free air. No significant fluid collection. Lymph nodes: Unremarkable. No enlarged lymph nodes. Urinary bladder: Unremarkable. No mass. Reproductive: Unremarkable as visualized. Bones/joints: Spinal degenerative changes. L5-S1 spondylolisthesis with associated spondylolysis. Soft tissues: Unremarkable. IMPRESSION: Normal caliber abdominal aorta without dissection or aneurysm. No acute intra-abdominal or pelvic process. Dictated and Authenticated by: Emanuel Haynes MD. Ordering:BRITAT Abreu MD
[2020-09-10 19:16] LABS: Troponin I < 0.05 ng/mL (<0.06)
[2020-09-10] MEDS: Ketorolac 30 MG/ML VIAL IVP (19:47)
[2020-09-10] MEDS: LORazepam 2 MG/ML VIAL 1 MG IVP (19:48)
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
[2020-09-10] MEDS: Normal Saline 1,000 ML 75 ML IV (21:28)
[2020-09-10] MEDS: Metoprolol 5 MG/5 ML VIAL IVP (21:28)
[2020-09-10] MEDS: Docusate Sodium 100 MG CAP PO (21:29)
[2020-09-10] MEDS: Pantoprazole 40 MG VIAL IVP (21:30)
[2020-09-10] MEDS: Acetaminophen 325 MG TAB PO (22:02)
[2020-09-10 22:55] LABS: Troponin I < 0.05 ng/mL (<0.06)
[2020-09-10] MEDS: Metoprolol 12.5 MG TAB PO (23:05)
[2020-09-10] MEDS: Methocarbamol 750 MG TAB PO (23:06)
[2020-09-10] MEDS: Mirtazapine 15 MG TAB PO (23:06)
[2020-09-10] MEDS: Gabapentin 600 MG TAB PO (23:06)
[2020-09-10] MEDS: oxyCODONE 5 MG TAB PO (23:07)
[2020-09-10] MEDS: Lisinopril 20 MG TAB PO (23:21)
[2020-09-11] VITALS (46 sets, daily range): BP systolic 125–197; BP diastolic 80–120; PULSE 76–103; RESP 12–36; TEMP 36.2–37.2; O2SAT 95–98
[2020-09-11] MEDS: amLODIPine 5 MG TAB PO ×2 (02:10→07:46)
[2020-09-11 02:57] LABS: *AMPHETAMINES SCREEN URINE Negative (Negative); *BARBITURATES SCREEN URINE Negative (Negative); *BENZODIAZEPINES SCREEN URINE POSITIVE (Negative); Cannabinoids THC POSITIVE (Negative); Cocaine Screen,Urine Negative (Negative); METHADONE URINE SCREEN Negative (Negative); OPIATES URINE SCREEN POSITIVE (Negative)
[2020-09-11 02:59] LABS: Tricyclic Antidepressants Negative (Negative)
[2020-09-11] MEDS: Methocarbamol 750 MG TAB PO ×3 (05:18→21:57)
[2020-09-11] MEDS: oxyCODONE 5 MG TAB PO ×3 (05:19→22:02)
[2020-09-11 07:11] LABS: Abs Immature Grans 0.06 10^3/uL (0.0-0.06); Absolute Basophil Count 0.06 10^3/uL (0.0-0.2); Absolute Eosinophil Count 0.18 10^3/uL (0.0-0.7); Absolute Lymphocyte Count 1.57 10^3/uL (1.2-3.4); Absolute Monocyte Count 0.82 10^3/uL (0.1-0.8); Absolute Neutrophil Count 5.75 10^3/uL (1.2-6.7); Basophils % 0.7; Eosinophils % 2.1; HCT 43.2 % (40.0-50.0); Immature Grans % 0.7; Lymphocytes % 18.6; MCH 29.1 pg (27.0-33.0); MCHC 34.7 % (32.0-36.0); MCV 83.7 fL (80-95); MPV 10.3 fL (8.0-11.0); Monocytes % 9.7; Neutrophils % 68.2; Nucleated RBC 0 %; Platelet Count 337 10^3/uL (130-400); RBC 5.16 10^6/uL (4.36-5.78); RDW 12.4 % (11.8-14.1); WBC 8.44 10^3/uL (4.4-10.8)
[2020-09-11 07:40] LABS: Anion Gap 9.6 mmol/L (3-11); BUN 14 mg/dL (7-18); CO2 24.4 mmol/L (21.0-32.0); CREATININE 0.82 mg/dL (0.70-1.30); Calcium 9.2 mg/dL (8.5-10.1); Calculated LDL 75 mg/dL (<100); Chloride 101 mmol/L (98-107); Cholesterol 140 mg/dL (<200); Glucose 114 mg/dL (74-106); HDL Cholesterol 39 mg/dL (40-60); Magnesium 1.9 mg/dL (1.8-2.4); Sodium 135 mmol/L (136-145); TSH 0.85 uIU/mL (0.36-3.74); Triglyceride 134 mg/dL (<150)
[2020-09-11 07:41] LABS: Troponin I < 0.05 ng/mL (<0.06)
[2020-09-11] MEDS: Gabapentin 600 MG TAB PO ×3 (07:45→19:20)
[2020-09-11] MEDS: Docusate Sodium 100 MG CAP PO ×2 (07:45→19:20)
[2020-09-11] MEDS: Acetaminophen 325 MG TAB PO (07:46)
[2020-09-11] MEDS: Metoprolol 12.5 MG TAB PO (07:46)
[2020-09-11 08:23] LABS: Vitamin B12 456 pg/mL (193-986)
[2020-09-11 08:32] LABS: Procalcitonin < 0.1 ng/mL
[2020-09-11] MEDS: Pantoprazole 40 MG VIAL IVP ×2 (10:35→21:58)
[2020-09-11] MEDS: Metoprolol 5 MG/5 ML VIAL IVP (10:36)
[2020-09-11] MEDS: Normal Saline Flush 10 ML SYR IVP ×2 (10:37→21:58)
[2020-09-11] MEDS: Normal Saline 1,000 ML 75 ML IV ×2 (11:13→22:11)
[2020-09-11] MEDS: Metoprolol 25 MG TAB PO ×2 (11:23→19:20)
--- NOTE | 2020-09-11 14:15 | W.PM.PROGNOT ---
Date of Service Date of service: 09/11/20 Time of Service: 14:29 Assessment and Plan Assessment and plan (1) Atelectasis of both lungs: Status: Acute Assessment and plan: Encourage use of IS (2) Hypertensive urgency: Status: Acute Assessment and plan: On amlodipine 5mg daily, lisinopril 20mg daily and metoprolol 12.5 mg po BID. PRN IV metoprolol This am his metoprolol was increased to 25mg BID and he received 5mg IV metoprolol. BP much improved. Monitor. (3) Abdominal pain: Status: Acute Assessment and plan: He has been taking Celebrex 200mg TID and may have gastritis vs PUD as a result. He would like to stop the Celebrex because even at this high dose it does not give him relief from his back pain. OK to d/c. PPI Consider outpt EGD. (4) Atypical chest pain: Status: Acute Assessment and plan: Troponin negative x 4 No EKG changes. (5) Paresthesia: Status: Acute Assessment and plan: Paresthesia of L flank and thorax. Residual result of Zoster that he experienced this summer? He was started back on gabapentin at time of this admission. Subjective Subjective Patient reports: no new complaints, feels better, still having pain (mild lower substernal. L thorax) and afebrile; denies nausea, vomiting and shortness of breath Exam Const General: cooperative and no acute distress Nutritional Appearance: overweight Orientation: alert and oriented x3 Chest Chest/axillae images: 1. Describes diminished sensation to touch Resp Effort & Inspection: normal respiratory effort Auscultation: clear to auscultation bilaterally Cardio Jugular venous pressure: no JVD Rate: regular rate Rhythm: regular rhythm Heart Sounds: S1 normal and S2 normal Extrem General: no pedal edema and no calf tenderness Objective Last Vital Signs Temp 36.5 C 09/11/20 12:30 Pulse 84 09/11/20 13:00 Resp 22 09/11/20 13:00 BP 152/108 H 09/11/20 13:00 Pulse Ox 96 09/11/20 13:00 Laboratory Results - last 24 hr 09/10/20 09/10/20 09/10/20 16:52 16:55 16:55 WBC 9.44 RBC 5.08 Hgb 14.9 Hct 43.6 MCV 85.8 MCH 29.3 MCHC 34.2 RDW 12.6 Plt Count 333 MPV 9.4 Immature Gran % 0.5 Neutrophils % 58.2 Lymphocytes % 27.2 Monocytes % 9.9 Eosinophils % 3.5 Basophils % 0.7 Nucleated RBC % 0 Absolute Neutrophils 5.49 Absolute Lymphocytes 2.57 Absolute Monocytes 0.93 H Absolute Eosinophils 0.33 Absolute Basophils 0.07 APTT Sodium 135 L Potassium 3.9 Chloride 102 Carbon Dioxide 27.1 Anion Gap 5.9 BUN 16 Creatinine 0.76 Estimated GFR/1.73 m2 >= 60.00 Glucose 108 H Calcium 9.3 Magnesium 2.0 Total Bilirubin 0.4 AST 7 L ALT 15 L Alkaline Phosphatase 95 Troponin I < 0.05 Total Protein 7.3 Albumin 3.6 Triglycerides Total Cholesterol LDL Cholesterol, Calc HDL Cholesterol Vitamin B12 Procalcitonin TSH Urine Color Urine Clarity Urine pH Ur Specific [place] Urine Protein Urine Ketones Urine Blood Urine Nitrite Urine Bilirubin Urine Urobilinogen Ur Leukocyte Esterase Urine Glucose Urine Opiates Screen Urine Methadone Screen Ur Barbiturates Screen Ur Tricyclics Screen Ur Amphetamines Screen U Benzodiazepines Scrn Urine Cocaine Screen Ur THC Screen 09/10/20 09/10/20 09/10/20 18:40 18:44 22:15 WBC RBC Hgb Hct MCV MCH MCHC RDW Plt Count MPV Immature Gran % Neutrophils % Lymphocytes % Monocytes % Eosinophils % Basophils % Nucleated RBC % Absolute Neutrophils Absolute Lymphocytes Absolute Monocytes Absolute Eosinophils Absolute Basophils APTT Sodium Potassium Chloride Carbon Dioxide Anion Gap BUN Creatinine Estimated GFR/1.73 m2 Glucose Calcium Magnesium Total Bilirubin AST ALT Alkaline Phosphatase Troponin I < 0.05 < 0.05 Total Protein Albumin Triglycerides Total Cholesterol LDL Cholesterol, Calc HDL Cholesterol Vitamin B12 Procalcitonin TSH Urine Color Yellow Urine Clarity Clear Urine pH 7.0 Ur Specific [place] 1.015 Urine Protein Negative Urine Ketones Negative Urine Blood Negative Urine Nitrite Negative Urine Bilirubin Negative Urine Urobilinogen 0.2 Ur Leukocyte Esterase Negative Urine Glucose Negative Urine Opiates Screen Urine Methadone Screen Ur Barbiturates Screen Ur Tricyclics Screen Ur Amphetamines Screen U Benzodiazepines Scrn Urine Cocaine Screen Ur THC Screen 09/11/20 09/11/20 09/11/20 01:00 02:30 06:00 WBC RBC Hgb Hct MCV MCH MCHC RDW Plt Count MPV Immature Gran % Neutrophils % Lymphocytes % Monocytes % Eosinophils % Basophils % Nucleated RBC % Absolute Neutrophils Absolute Lymphocytes Absolute Monocytes Absolute Eosinophils Absolute Basophils APTT Cancelled Sodium 135 L Potassium 4.0 Chloride 101 Carbon Dioxide 24.4 Anion Gap 9.6 BUN 14 Creatinine 0.82 Estimated GFR/1.73 m2 >= 60.00 Glucose 114 H Calcium 9.2 Magnesium 1.9 Total Bilirubin AST ALT Alkaline Phosphatase Troponin I < 0.05 Total Protein Albumin Triglycerides 134 Total Cholesterol 140 LDL Cholesterol, Calc 75 HDL Cholesterol 39 L Vitamin B12 Procalcitonin TSH 0.85 Urine Color Urine Clarity Urine pH Ur Specific [place] Urine Protein Urine Ketones Urine Blood Urine Nitrite Urine Bilirubin Urine Urobilinogen Ur Leukocyte Esterase Urine Glucose Urine Opiates Screen Positive A Urine Methadone Screen Negative Ur Barbiturates Screen Negative Ur Tricyclics Screen Negative Ur Amphetamines Screen Negative U Benzodiazepines Scrn Positive A Urine Cocaine Screen Negative Ur THC Screen Positive A 09/11/20 09/11/20 09/11/20 06:00 06:00 06:00 WBC 8.44 RBC 5.16 Hgb 15.0 Hct 43.2 MCV 83.7 MCH 29.1 MCHC 34.7 RDW 12.4 Plt Count 337 MPV 10.3 Immature Gran % 0.7 Neutrophils % 68.2 Lymphocytes % 18.6 Monocytes % 9.7 Eosinophils % 2.1 Basophils % 0.7 Nucleated RBC % 0 Absolute Neutrophils 5.75 Absolute Lymphocytes 1.57 Absolute Monocytes 0.82 H Absolute Eosinophils 0.18 Absolute Basophils 0.06 APTT Sodium Potassium Chloride Carbon Dioxide Anion Gap BUN Creatinine Estimated GFR/1.73 m2 Glucose Calcium Magnesium Total Bilirubin AST ALT Alkaline Phosphatase Troponin I Total Protein Albumin Triglycerides Total Cholesterol LDL Cholesterol, Calc HDL Cholesterol Vitamin B12 456 Procalcitonin < 0.1 TSH Urine Color Urine Clarity Urine pH Ur Specific [place] Urine Protein Urine Ketones Urine Blood Urine Nitrite Urine Bilirubin Urine Urobilinogen Ur Leukocyte Esterase Urine Glucose Urine Opiates Screen Urine Methadone Screen Ur Barbiturates Screen Ur Tricyclics Screen Ur Amphetamines Screen U Benzodiazepines Scrn Urine Cocaine Screen Ur THC Screen
--- NOTE | 2020-09-11 15:09 | INITIAL_ITS ---
- If Service Date Differs Date of service: 09/11/20 Time of Service: 15:09 Care Management Initial Assess REASON FOR HOSPITALIZATION:: Hypertension urgency, back pain PAST MEDICAL HISTORY/PAST SURGICAL HISTORY:: Foreign body in soft tissue, GERD, hemorrhoids, HTN, repair of umbilical hernia, colonoscopy, hemorrhoidectomy, spinal fusion, tonsillectomy and adenoidectomy PREVIOUS FUNCTIONAL STATUS/SOCIAL/FAMILY SUPPORTS:: Miquel resides with his , Maryuri in [place], [place]. 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 CURRENT FUNCTIONAL STATUS:: Miquel is alert and engaged he states that he struggled after his last discharge with his primary care provider. He felt ready for discharge last visit and had a plan to manage his pain. He states that his PCP did not feel the medications he was discharged on were appropiate and would not continue them. Miquel states he called his primary care almost every day for help. He does not feel the medications he was transition to helped him at all and if anything made his depression worse. Miquel states he is thankful for the hospital and the help managing his symtoms. He reports he does have a pain clinic appointment on October 07 and a neurology appointment on . He would like to change his primary care which CM has assisted with. Miquel is now scheduled with on October 08 at 1320. The office will attempt to make the appointment sooner in the morning and notified the care management department. PADMINI has also emailed the [facility] for follow up. ADVANCE DIRECTIVES:: None on file - CM offered forms to complete Has patient been provided with info about the portal/API?: Yes Did the patient sign up for the portal?: No (enrolled) CODE STATUS:: Full Code INSURANCE COVERAGE / FINANCIAL ISSUES:: [employer] CURRENT HOME/COMMUNITY SERVICES/EQUIPMENT:: None PRIMARY CARE PHYSICIAN:: wants to change providers at this time POTENTIAL DISCHARGE NEEDS:: New primary care referral and scheduled follow up prior to discharge. PATIENT/FAMILY EDUCATION NEEDS:: Discharge instructions, limitations and follow up plan of care including ask me three and self management. ANTICIPATED BARRIERS TO DISCHARGE:: None TRANSPORTATION:: Via private car with family at time of discharge. PLAN:: Miquel remains observation at this time, he is concerned that his priamry care is not supportive in managing his pain and discomfort. CM reviewed Miquel's chart it appears that some of his medications were stopped by PCP due to concerns of worsining symptoms of depression. Miquel was refered to a pain clinic by PCP. CM will assist patient in provider change if that is what he would prefer. Anticipate Miquel will be discharged home when medically ready. Readmission - Within the Past 30 Days Yes or No: Y - Date of First Admission Date of 1st Admission: 08/19/20 - Date of this Admission Date of Admission: 09/10/20 This admission was: Through ED - Office Visit Since 1st Admission Have you seen your PCP in the office since discharge?: Yes Date of PCP Appointment: 08/30/20 Had an appointment Been Scheduled?: Yes - Speicalist Appointments Have you seen any other specialist since your 1st Admission?: No - I. Interview patient and/or Family Difficulty reaching your doctor or getting an office appt?: No Have you had trouble purchasing/ or taking medication?: No Have you had trouble with getting meals at home?: No Did you feel ready for discharge when you left the last time: Yes Were services received that you thought were set up on disch: No Why weren't services received?: Medication management discharged recomendations not followed, medication changes and patient regressed If patient did not receive services, were there orders at: Yes Did you call your physician beore you came to the ED?: Yes (Several contacts with the provider ) How do you think you became sick enough to come back?: Medications that improved symptoms were stopped I was told by my PCP that he medications prescribed including Gabapentin was addictive and he stopped them. My pain returned and I continued to decline. I contacted my PCP almost everyday and did not feel that I was being listened to. - Assessment for Readmission Summary of readmission circumstances, based upon interviews: CM reviewed outpatient and inpatient notes as well as interviewed provider. Miquel was tearful during interaction and reports that the pain he has been having has increased his symptoms of depression. He states when the provider stopped the medications giving him relief he became hopeless again. He states that when he left last discharge he felt that his symptoms were improved and he was able to start thinking forward again. CM reviewed the primary care notes wrote that the discharge medications were increasing Miquel's symptoms of depression. Miquel reports the medications that he was changed to made him feel worse. Miquel was scheduled with the pain clinic and neurology both appointment are coming up in September however not until the end. He has been scheduled with a new primary care.
--- NOTE | 2020-09-11 15:31 | CHAPLAIN ---
Miquel and I remembered each other from his admission earlier this month. At that point Miquel was experiencing a lot of pain, and was unable to sleep. He spoke about hurting himself because he was so discouraged. He tells me today that he's having a good day, and Dr. Mccarthy and Nurse Mary have been very helpful and have helped him to figure out why he is still experiencing pain. Miquel identifies his as his rock. She was here earlier and will stop in again after work. Miquel was very appreciative of the care he's been receiving here.
[2020-09-11] MEDS: Lisinopril 20 MG TAB PO (21:57)
[2020-09-11] MEDS: Mirtazapine 15 MG TAB PO (21:58)
[2020-09-12] VITALS (34 sets, daily range): BP systolic 100–198; BP diastolic 65–142; PULSE 64–111; RESP 12–24; TEMP 36.4–37.1; O2SAT 95–98
[2020-09-12] MEDS: Normal Saline Flush 10 ML SYR IVP (00:28)
[2020-09-12] MEDS: LORazepam 2 MG/ML VIAL 0.5 MG IVP ×2 (00:28→20:13)
[2020-09-12] MEDS: Metoprolol 5 MG/5 ML VIAL IVP (03:11)
[2020-09-12] MEDS: oxyCODONE 5 MG TAB PO ×3 (03:11→15:41)
[2020-09-12] MEDS: Methocarbamol 750 MG TAB PO ×3 (06:21→20:13)
[2020-09-12] MEDS: Docusate Sodium 100 MG CAP PO ×2 (07:54→20:13)
[2020-09-12] MEDS: Gabapentin 600 MG TAB PO ×3 (07:54→20:13)
[2020-09-12] MEDS: amLODIPine 5 MG TAB PO (07:55)
[2020-09-12] MEDS: Metoprolol 25 MG TAB PO (07:55)
[2020-09-12] MEDS: Metoprolol 50 MG TAB PO (08:51)
--- NOTE | 2020-09-12 09:48 | PDOC.CMDIS ---
LACE Index Scoring Tool - Questions: Length of Stay (in days): 2 Acuity (Admit via E.D.?): Yes Comorbidities: Chronic Pulmonary Disease E.D. Visits: 6 - Answers: Total Score: 11 Risk of Readmission: High Risk Care Management Discharge Reason for Hospitalization: Hypertension urgency, back pain Discharge Plan: Miquel will be discharged home when medically ready. No additional services anticipated at this time. Miquel will transport via private vehicle with his , Maryuri. Patient/Family Education Needs: Review discharge instructions, discuss Ask Me Three.
[2020-09-12] MEDS: Pantoprazole 40 MG VIAL IVP (11:33)
--- NOTE | 2020-09-12 12:09 | W.PM.PROGNOT ---
Date of Service Date of service: 09/12/20 Time of Service: 12:09 Assessment and Plan Assessment and plan (1) Paresthesia: Status: Acute Assessment and plan: Diminished sensation to touch at L mid back / flank and chest. Likely post-herpetic / Zoster related. (2) Atelectasis of both lungs: Status: Acute Assessment and plan: Likely due to not taking deep breaths because it causes his sternal area discomfort. Cont IS. Ambulate (3) Hypertensive urgency: Status: Acute Assessment and plan: Titrating BP meds to gain better control; improving. Cont to monitor. Likely d/c tomorrow. (4) Chronic obstructive lung disease: Status: Acute Assessment and plan: No exacerbation On no routine pulmonary meds/inhalers and has not required any while in hospital. (5) Back pain: Status: Chronic Assessment and plan: Chronie with h/o thoracic spine fx and cervical spinal stenosis. MRI of back during recent hospitalization negative for any acute findings. Stopped Celebrex; was taking 200mg TID; concerned with possible gastritis / PUD. On Neurontin and Robaxin. Subjective Subjective Patient reports: feels better and afebrile Interval history since last seen: He continues to have the pain that he describes as sternal as well as mid L back into lateral thorax; better during the day but worse at night. No SOA. Exam Const General: cooperative and no acute distress Nutritional Appearance: overweight Orientation: alert and oriented x3 Chest Chest: tenderness (costochondral tenderness diffusly with compression) Resp Effort & Inspection: normal respiratory effort Auscultation: clear to auscultation bilaterally Cardio Rate: regular rate Rhythm: regular rhythm Heart Sounds: S1 normal and S2 normal GI Palpation: soft and nontender Skin General skin exam: no rashes or lesions noted Extrem General: no pedal edema and no calf tenderness Objective Last Vital Signs Temp 36.7 C 09/12/20 09:35 Pulse 82 09/12/20 09:35 Resp 13 09/12/20 09:43 BP 155/95 H 09/12/20 09:35 Pulse Ox 97 09/12/20 09:43
--- NOTE | 2020-09-12 13:04 | W.NUTRFU ---
Date of service: 09/12/20 Time of Service: 13:04 Nutritional Follow up NOTE: 55 year old male admitted with hypertensive urgency with atelectasis of both lungs. BMI indicates obesity. Following Low sodium diet with adequate intake. Not at nutritional risk at this time. Time Spent in Nutritional Counseling and Treatment: 0
--- NOTE | 2020-09-12 14:07 | PHA.REVIEW ---
Pharmacy Admission Review - Admission Clinical Review (Last Reviewed 09/10/20 @ 22:07 by Roxanna Meeks MD) Paresthesia (Acute) Atelectasis of both lungs (Acute) Discharge planning issues (Acute) DVT prophylaxis (Acute) Muscle spasm (Acute) Hypertensive urgency (Acute) Chest pain (Acute) Abdominal pain (Acute) Chronic obstructive lung disease (Acute) Atypical chest pain (Acute) GERD (gastroesophageal reflux disease) (Acute) shellfish derived Allergy (Unknown, Verified 09/10/20 16:49) Height 5 ft 7 in Weight 97.5 kg - Renal Dosing Renal Dosing: BUN 14 mg/dL (7-18) 09/11/20 06:00 Creatinine 0.82 mg/dL (0.70-1.30) 09/11/20 06:00 Medications needing adjustments: Reviewed (Crcl ~112 mL/min using adjusted body weight, current meds okay.) - Anticoagulation Anticoagulation: Hgb 15.0 g/dL (13.5-17.5) 09/11/20 06:00 Hct 43.2 % (40.0-50.0) 09/11/20 06:00 Plt Count 337 10^3/uL (130-400) 09/11/20 06:00 Creatinine 0.82 mg/dL (0.70-1.30) 09/11/20 06:00 DVT Prohphylaxis: Reviewed (chemical prophylaxis being held until hemoccult status known per H&P.) Therapeutic Anticoagulation: N/A - Opiate Usage Evaluate Pain Scale/Pains Meds: Reviewed Scheduled Bowel Reg ordered if on Opiates?: Yes - Relevant Labs Sodium 135 mmol/L (136-145) L 09/11/20 06:00 Potassium 4.0 mmol/L (3.5-5.1) 09/11/20 06:00 Chloride 101 mmol/L (98-107) 09/11/20 06:00 Magnesium 1.9 mg/dL (1.8-2.4) 09/11/20 06:00 Electrolytes, C-Reactive P, ESR: Reviewed - DM Control DM Control: Glucose 114 mg/dL (74-106) H 09/11/20 06:00 Insulin Dosing: N/A (BG slightly elevated. No diabetes note in pts medical history. Last A1c was done 2016.) - Heart Failure/AZ Heart Failure/AZ: Troponin I < 0.05 ng/mL (<0.06) 09/11/20 06:00 EF%, BRANDI's, B-Blockers, Diuretics: Reviewed - BP Control BP Control: Blood Pressure [Left Arm] 155/95 Blood Pressure 155/95 Blood Pressure 162/104 Blood Pressure 174/114 Blood Pressure 175/116 Blood Pressure 167/128 Blood Pressure 183/107 Blood Pressure 184/111 Blood Pressure 182/117 If elevated: Reviewed (BP still elevated but improving since this morning. Metoprolol dosing incresed this morning, pt also on amlodipine, lisinopril and PRN IV metoprolol.) - Qtc Review If Elevated: N/A (QTc 448) - IV to PO Switch IV Medications: Intervened (Will ask provider if okay to change pantoprazole from IV to PO as pt is taking other PO meds.) - Home Meds Home Med List reviewed: Reviewed (Multiple [employer] depressants.) Relevent Home Meds Not ordered & why?: celecoxib (pt no longer wants to take/also discontinued by provider due to GERD/over use per H&P), omeprazole (has pantoprazole ordered). - Current meds Current Medication Order Review: Intervened (Discontinued DI meds, already had been given.) - Comments Comments/Follow Ups: Watch BP, BG, labs and for med changes (need of additional BM meds, possible anticoagulation pending hemoccult, changes in BP meds).
--- NOTE | 2020-09-12 15:49 | CMPROGNOTE_ITS ---
Care Management Progress Note S/O: Miquel continues to be closely monitored, and per MD will likely discharge tomorrow. CM continues to follow. A: 55 year old male admitted to [facility] 09/12/20 for Hypertensive urgency, chest/abnormal/back pain P: Miquel will return home when ready per MD, he will follow up with his PCP and plan of care as prescribed. He will transport via private vehicle with his , Maryuri.
[2020-09-12] MEDS: Metoprolol 25 MG TAB 75 MG PO (20:13)
[2020-09-12] MEDS: Lisinopril 20 MG TAB PO (21:23)
[2020-09-12] MEDS: Melatonin 3 MG TAB PO (21:23)
[2020-09-12] MEDS: Mirtazapine 15 MG TAB PO (21:24)
[2020-09-13 03:35] VITALS: BP 150/95; PULSE 90; RESP 17; TEMP 37; O2SAT 96
[2020-09-13] MEDS: Pantoprazole 40 MG TABCR PO (07:46)
[2020-09-13] MEDS: Gabapentin 600 MG TAB PO (07:46)
[2020-09-13] MEDS: Metoprolol 25 MG TAB 75 MG PO (07:47)
[2020-09-13] MEDS: Docusate Sodium 100 MG CAP PO (07:47)
[2020-09-13] MEDS: Methocarbamol 750 MG TAB PO (07:47)
[2020-09-13] MEDS: amLODIPine 5 MG TAB PO (07:47)
[2020-09-13 07:50] VITALS: BP 180/100; PULSE 88
[2020-09-13 08:33] VITALS: PULSE 94; RESP 18; TEMP 36.9; O2SAT 97
[2020-09-13 09:10] VITALS: BP 136/88
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
[2020-09-13 11:35] VITALS: BP 134/89; PULSE 79; RESP 17; TEMP 37.1; O2SAT 96
--- NOTE | 2020-09-13 16:32 | PDOC.CMDIS ---
LACE Index Scoring Tool - Questions: Length of Stay (in days): 3 Acuity (Admit via E.D.?): Yes Comorbidities: Chronic Pulmonary Disease E.D. Visits: 6 - Answers: Total Score: 12 Risk of Readmission: High Risk Care Management Discharge Reason for Hospitalization: Hypertension urgency, back pain Discharge Plan: Miquel will return home when ready per MD, he will follow up with his PCP and plan of care as prescribed. He will transport via private vehicle with his , Maryuri. Patient/Family Education Needs: Review discharge instructions, discuss Ask Me Three.
[2020-09-17 16:23] LABS: COVID-19 RT-PCR UVMMC Result Negative (Negative)
== END 2020-09-13 12:29 | disposition home or self-care (01) | DRG 305 ==
LOC: ER 19:41 → ICU 20:40 → MS 09-12 16:38
PROVIDERS: Admitting Provider Internal Medicine; Emergency Provider Physician Assistant; PCP Emergency Medicine; Visit Provider Internal Medicine
DX: I16.0 Hypertensive urgency; J98.11 Atelectasis; B02.8 Zoster with other complications; R07.89 Other chest pain; I10 Essential (primary) hypertension; K21.9 Gastro-esophageal reflux disease without esophagitis; J44.9 Chronic obstructive pulmonary disease, unspecified; F10.21 Alcohol dependence, in remission; G89.29 Other chronic pain; M54.9 Dorsalgia, unspecified; N40.1 Benign prostatic hyperplasia with lower urinary tract symptoms; F43.23 Adjustment disorder with mixed anxiety and depressed mood; Z87.891 Personal history of nicotine dependence; M62.830 Muscle spasm of back; K29.70 Gastritis, unspecified, without bleeding; Z79.1 Long term (current) use of non-steroidal anti-inflammatories (NSAID)
CPT/HCPCS: 36415; 74177; 80048; 80053; 80061; 80307; 84145; 93005; 96361; 96365; 96366; 96368; 96375; 99220; 99232; 99239; 99291; U0003; 71045; 81003; 82607; 83735; 84443; 84484; 85025; 85730; 93010; 93306; 94667; 99225; G0378; J1885; J2060; J3490

== ENCOUNTER 2020-09-22 16:52 | Emergency (ER) | payer OTHER, SELFPAY ==
[2020-09-22] VITALS (29 sets, daily range): BP systolic 73–123; BP diastolic 38–72; PULSE 76–100; RESP 15–25; TEMP 36.7; O2SAT 18–98
--- NOTE | 2020-09-22 16:45 | RT.EKG_ITS ---
APPROVED REPORT Exam: Resting ECG Patient Location: E HR:82 bpm ECG Measurements Heart Rate 82 AXIS VA 165 P 72 QRSd 96 QRS 14 QT 399 T 44 QTc 465 Conclusion Sinus rhythm...normal P axis, V-rate 60- 99. No STEMI. I have reviewed and interpreted ECG and agree with software generated interpretation.
--- NOTE | 2020-09-22 17:29 | ED.GENADUL_ITS ---
Discharge Plan Disposition Patient Disposition: HOME Condition: Improving Discharge Details Clinical Impression: Acute kidney failure, Hypotension Primary Care Provider: Enrique Plascencia ED Provider: Nita Ivan Home Meds and New Rx's Prescriptions: Continued mirtazapine [Remeron] 15 mg tablet 15 mg PO QHS Qty: 30 RF: 6 gabapentin [Neurontin] 600 mg tablet 600 mg PO QID Qty: 120 RF: 5 omeprazole magnesium [Prilosec OTC] 20 MG tablet,delayed release (DR/EC) 20 mg PO DAILY RF: 0 acetaminophen 500 mg Tablet 1,000 mg PO TID PRN PRNRF: 0 methocarbamol 750 mg Tablet 750 mg PO TID Qty: 0 RF: 0 melatonin 3 mg Tablet Extended Release 3 mg PO HS Qty: 0 RF: 0 metoprolol tartrate 25 mg Tablet 75 mg PO BID Qty: 60 RF: 0 Discontinued lisinopril 20 mg tablet 20 mg PO HS RF: 0 amlodipine 5 mg Tablet 5 mg PO DAILY Qty: 30 RF: 0 Discharge Instructions Instructions: Acute Kidney Injury (DC), Hypotension (ED) Additional Instructions: Hold your amlodipine and lisinopril until instructed by your primary care provider Take your Metoprolol only if your systolic blood pressure is over 100 Drink at least 6 to 8 glasses of water daily to stay well-hydrated Return sooner for new or worsening symptoms Have your lab work drawn in the morning as directed Check your blood pressure twice daily record and bring with you to your follow- up appointment Referrals: Enrique Plascencia [Primary Care Provider] - (Call office in the a.m. for an appointment as soon as possible) Discharge Orders Other Ambulatory Orders: Basic Metabolic Panel (Routine) Timeframe: 20200923 Location: None Selected Ordered By: Nita Ivan Medical Decision Making 55-year-old who presents with dizziness found to be hypotensive with a follow-up blood pressure in the 50s at home. He reports taking his medications as directed he states he has had recently changed by adding amlodipine. He states he has been in his usual state of health with no recent illness will establish IV and bolus with IV normal saline. His heart rate is in the 80s normal sinus rhythm with no acute ST segment changes will obtain CBC CMP troponin D-dimer to rule out pulmonary embolism or acute coronary syndrome. After 2 L of fluid his symptoms have completely resolved his labs are reviewed and does show a creatinine of 1.6 which is double his baseline. I suspect this is due to hypotension essentially 6+ hours. He voided a large amount while in the emergency department which was a medium to light-colored urine. Chest x-ray wi th no acute findings labs are otherwise unremarkable. His lactic acid is slightly elevated at 1.8 but he has no sign of active infection so unlikely due to sepsis. Orthostatics are repeated after 2 L of normal saline he is asymptomatic but his systolic did drop from 110-95 so I opted to give him 1 more liter of normal saline prior to discharge. Orthostatics are again repeated and his systolic blood pressure remained at 120 lying sitting and standing. He is asymptomatic and states he feels at his baseline he was able to eat a sandwich and took oral fluids well. He is voiding well. He was advised to hold his amlodipine and lisinopril until discussed with his primary care provider he does have the ability to check his blood pressure at home and will check twice daily prior to taking his Lopressor he was advised to hold if his systolic blood pressure was below 100. He will have recheck of his kidney function tomorrow morning and will call his primary care provider for follow-up appointment. He was advised to return sooner for new or worsening symptoms. Medical Records Medical records reviewed: Yes I reviewed the patient's medical records. Medical records narrative: Baseline labs Medications Lab Data Lab results reviewed: Yes I reviewed the patient's lab results. Lab results narrative: Laboratory Results - last 24 hr 09/22/20 09/22/20 09/22/20 12:00 17:15 17:15 WBC 11.24 H RBC 4.84 Hgb 14.3 Hct 41.2 MCV 85.1 MCH 29.5 MCHC 34.7 RDW 13.2 Plt Count 336 MPV 9.5 Immature Gran % 1.6 Neutrophils % 59.7 Lymphocytes % 24.3 Monocytes % 11.2 Eosinophils % 2.5 Basophils % 0.7 Nucleated RBC % 0 Absolute Neutrophils 6.71 H Absolute Lymphocytes 2.73 Absolute Monocytes 1.26 H Absolute Eosinophils 0.28 Absolute Basophils 0.08 D-Dimer VBG Lactate Sodium 129 L Potassium 3.7 Chloride 96 L Carbon Dioxide 22.8 Anion Gap 10.2 BUN 33 H Creatinine 1.63 H Estimated GFR/1.73 m2 43.98 Glucose 111 H Calcium 8.3 L Magnesium 1.9 Total Bilirubin 0.5 AST 8 L ALT 16 Alkaline Phosphatase 87 Troponin I < 0.05 Total Protein 6.5 Albumin 3.3 L Urine Color Yellow Urine Clarity Clear Urine pH 5.5 Ur Specific [place] <= 1.005 Urine Protein Negative Urine Ketones Negative Urine Blood Trace-intact H Urine Nitrite Negative Urine Bilirubin Negative Urine Urobilinogen 0.2 Ur Leukocyte Esterase Negative Urine RBC Negative Urine WBC Negative Ur Epithelial Cells Negative Urine Crystals Negative Urine Bacteria Negative Urine Casts Negative Urine Mucus Negative Urine Other Negative Ur Culture Indicated? No Urine Glucose Negative 09/22/20 09/22/20 17:15 17:15 WBC RBC Hgb Hct MCV MCH MCHC RDW Plt Count MPV Immature Gran % Neutrophils % Lymphocytes % Monocytes % Eosinophils % Basophils % Nucleated RBC % Absolute Neutrophils Absolute Lymphocytes Absolute Monocytes Absolute Eosinophils Absolute Basophils D-Dimer 294 VBG Lactate 1.8 H Sodium Potassium Chloride Carbon Dioxide Anion Gap BUN Creatinine Estimated GFR/1.73 m2 Glucose Calcium Magnesium Total Bilirubin AST ALT Alkaline Phosphatase Troponin I Total Protein Albumin Urine Color Urine Clarity Urine pH Ur Specific [place] Urine Protein Urine Ketones Urine Blood Urine Nitrite Urine Bilirubin Urine Urobilinogen Ur Leukocyte Esterase Urine RBC Urine WBC Ur Epithelial Cells Urine Crystals Urine Bacteria Urine Casts Urine Mucus Urine Other Ur Culture Indicated? Urine Glucose HPI General Mode of arrival: wheelchair . Date/Time Provider Initiated Documentation: 09/22/20 16:56 . Limitations to Documentation: no limitations . Information obtained by: patient . HPI Narrative: presents for evaluation of low pressures with associated dizziness. reports no shortness of breath or chest pain. reports pain inbetween his shoulder blades but states it is chronic and not changed. he has no cough, fevers, abdominal pain or nausea. states he did not take his blood pressure medications today because of the blood pressure. has been eating and drinking and otherwise was doing well till today with this. Related Data Home Medications Medication Instructions Recorded Confirmed omeprazole magnesium [Prilosec OTC] 20 mg PO DAILY 12/25/16 09/22/20 mirtazapine 15 mg tablet 15 mg PO QHS #30 tab 08/30/20 09/22/20 acetaminophen 1,000 mg PO TID PRN PRN 09/10/20 09/22/20 melatonin 3 mg PO HS #0 tab 09/13/20 09/22/20 methocarbamol 750 mg PO TID #0 tab 09/13/20 09/22/20 metoprolol tartrate 75 mg PO BID #60 tab 09/13/20 09/22/20 gabapentin 600 mg tablet 600 mg PO QID #120 tab 09/19/20 09/22/20 Previous Rx's Medication Instructions Recorded mirtazapine 15 mg tablet 15 mg PO QHS #30 tab 08/30/20 melatonin 3 mg PO HS #0 tab 09/13/20 methocarbamol 750 mg PO TID #0 tab 09/13/20 metoprolol tartrate 75 mg PO BID #60 tab 09/13/20 gabapentin 600 mg tablet 600 mg PO QID #120 tab 09/19/20 Allergies Allergy/AdvReac Type Severity Reaction Status Date / Time shellfish derived Allergy Unknown Verified 09/22/20 17:17 General Stated Complaint: [facility] ALMAZ: 3 Review of Systems All systems reviewed & are unremarkable except as noted in HPI and below Constitutional Constitutional: Denies fever(s), Denies frequent falls and Denies poor appetite Eyes Eyes: Denies blurry vision and Denies change in vision ENT Ears, Nose, Mouth, and Throat: Reports dizziness Cardiovascular Cardiovascular: Denies chest pain and Denies rapid heart rate Respiratory Respiratory: Denies cough Gastrointestinal Gastrointestinal: Denies abdominal pain and Denies nausea Musculoskeletal Musculoskeletal: Reports back pain (chronic) Neurologic Neurologic: Reports dizziness and Denies frequent falls PFSH Medical History Back pain Cervical spinal stenosis cervical spine fusion 2006-Dr. Christian C4 right foraminotomy Dr Christian 03/31 Chronic obstructive lung disease Foreign body (FB) in soft tissue (~01/04/19) Fracture of thoracic spine GERD (gastroesophageal reflux disease) H/O hemorrhoids History of alcoholism and drug abuse HTN (hypertension) Lower urinary tract symptoms (LUTS) (11/29/15) Osteomyelitis of lower leg (10/14/05) foot Surgical History History of spinal fusion History of umbilical hernia repair S/P colonoscopy (~01/04/19) S/P hemorrhoidectomy Spinal Fusion (~2006) Status post tonsillectomy and adenoidectomy Family History Other Adopted Social History (Updated 09/19/20 @ 12:54 by Elana Sanderson LPN) Smoking/Tobacco Use Status: Former Tobacco Use Tobacco: How many years used: 15 Smoking risk assessment performed?: Yes Alcohol Intake: former Drug use: Never Substance use type: does not use Household members: spouse Housing: house Number of Children: 4 number of grandchildren: 5 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 Pets and animals: Yes Pets and animals: dog(s) Current gender identity: male What is your relationship status?: Panel score (0-1 are the most socially isolated patients): 1 Seatbelt use: always Do you feel safe at home: Yes Do you feel safe in your relationship?: Yes Exam Const General: cooperative and no acute distress Nutritional Appearance: overweight Orientation: alert, awake and oriented x3 HENMT Head: normal to inspection, normocephalic and atraumatic Mouth: oral mucosa abnormal (Slightly dry) Resp Effort & Inspection: normal respiratory effort Auscultation: diminished lung sounds bilaterally and no wheezes Cardio Rate: regular rate Rhythm: regular rhythm GI Inspection: normal to inspection Palpation: soft Auscultation: normal bowel sounds Skin General skin exam: no rashes or lesions noted Neuro General: patient alert, patient awake, patient oriented x3, moves all extremities and no focal motor deficits Extrem General: no pedal edema Course Vital Signs Vital signs: Vital Signs Temperature 36.7 C 09/22/20 17:10 Pulse 81 09/22/20 17:10 Respiratory Rate 22 09/22/20 17:10 Blood Pressure 96/49 L 09/22/20 17:10 Pulse Oximetry 96 09/22/20 17:10 Temperature 36.7 C 09/22/20 17:10 Temperature Source Skin 09/22/20 17:10 Pulse 81 09/22/20 17:10 Respiratory Rate 22 09/22/20 17:10 Respiratory Effort 09/22/20 17:12 Blood Pressure 96/49 L 09/22/20 17:10 Blood Pressure Position Supine 09/22/20 17:10 Pulse Oximetry 96 09/22/20 17:10 Oxygen Delivery Method Room Air 09/22/20 17:10 Oxygen Flow Rate 0 09/22/20 17:10 Pain Level 6 09/22/20 17:10
[2020-09-22 17:47] LABS: Abs Immature Grans 0.18 10^3/uL (0.0-0.06); Absolute Basophil Count 0.08 10^3/uL (0.0-0.2); Absolute Eosinophil Count 0.28 10^3/uL (0.0-0.7); Absolute Lymphocyte Count 2.73 10^3/uL (1.2-3.4); Absolute Monocyte Count 1.26 10^3/uL (0.1-0.8); Absolute Neutrophil Count 6.71 10^3/uL (1.2-6.7); Basophils % 0.7; Eosinophils % 2.5; HCT 41.2 % (40.0-50.0); HGB 14.3 g/dL (13.5-17.5); Immature Grans % 1.6; Lactate 1.8 mmol/L (0.6-1.4); Lymphocytes % 24.3; MCH 29.5 pg (27.0-33.0); MCHC 34.7 % (32.0-36.0); MCV 85.1 fL (80-95); MPV 9.5 fL (8.0-11.0); Monocytes % 11.2; Neutrophils % 59.7; Nucleated RBC 0 %; Platelet Count 336 10^3/uL (130-400); RBC 4.84 10^6/uL (4.36-5.78); RDW 13.2 % (11.8-14.1); RDW-SD 40.9 fL; WBC 11.24 10^3/uL (4.4-10.8)
[2020-09-22] MEDS: Normal Saline 1,000 ML 1000 ML IV ×2 (17:55→19:27)
--- NOTE | 2020-09-22 18:00 | DI.RAD_ITS ---
EXAM: XR PORTABLE CHEST AP CLINICAL HISTORY: dizziness , hypotension TECHNIQUE: COMPARISON: CT CT THORAX ABD/PEL CTA from 09/10/2020 CR,XR XR PORTABLE CHEST AP from 09/10/2020 CR,XR XR PORTABLE CHEST AP from 09/10/2020 FINDINGS: Portable AP chest was obtained. There is increasing radiodensity in left lung base since prior radio graphs and CT of 09/10/2020. Findings are suggestive increasing consolidation or atelectasis. Follo w-up CT may be considered if clinically appropriate. IMPRESSION: RADIATION DOSE DELIVERED: Total DLP
[2020-09-22 18:25] LABS: D-Dimer 294 ng/mlFEU (<500)
[2020-09-22 18:36] LABS: ALT 16 U/L (16-63); AST 8 U/L (15-37); Albumin 3.3 g/dL (3.4-5.0); Alkaline Phosphatase 87 U/L (46-116); Anion Gap 10.2 mmol/L (3-11); BUN 33 mg/dL (7-18); Bilirubin, Total 0.5 mg/dL (0.2-1.0); CO2 22.8 mmol/L (21.0-32.0); CREATININE 1.63 mg/dL (0.70-1.30); Calcium 8.3 mg/dL (8.5-10.1); Chloride 96 mmol/L (98-107); Estimated GFR 43.98 (mL/min/1.73m2); Glucose 111 mg/dL (74-106); Magnesium 1.9 mg/dL (1.8-2.4); Potassium 3.7 mmol/L (3.5-5.1); Sodium 129 mmol/L (136-145); Total Protein 6.5 g/dL (6.4-8.2)
[2020-09-22 18:39] LABS: Troponin I < 0.05 ng/mL (<0.06)
--- NOTE | 2020-09-22 18:43 | DI.VRAD_ITS ---
PROCEDURE INFORMATION: Exam: XR Chest, 1 View Exam date and time: 09/22/2020 18:11 Age: 55 years old Clinical indication: Other: Dizziness, hypotension TECHNIQUE: Imaging protocol: XR of the chest Views: 1 view. COMPARISON: CR XR PORTABLE CHEST AP 09/10/2020 17:28 FINDINGS: Lungs: Similar appearance predominantly linear opacities in the left lung base. Low lung volumes. Pleural space: No pneumothorax. Heart/Mediastinum: No cardiomegaly. Bones/joints: Anterior cervical fixation hardware again seen. No displaced fracture. IMPRESSION: Similar appearance predominantly linear opacities in the left lung base. Subsegmental atelectasis is favored over pneumonia. Small left pleural effusion is possible. Dictated and Authenticated by: Ann Bai MD. Ordering:SHAZIA Moya MD
[2020-09-22 19:02] LABS: Bilirubin Negative (Negative); Blood Trace-intact (Negative); Clarity Clear (Clear); Glucose Negative (Negative); Ketones Negative (Negative); Leukocyte Esterase Negative (Negative); Nitrite Negative (Negative); Specific Gravity <= 1.005 (1.005-1.025); Urobilinogen 0.2 EU/dL (Up TO 0.2); pH 5.5 (5-8)
[2020-09-22 19:12] LABS: Bacteria Negative HPF (Negative); C & S Indicated? No; Casts Negative LPF (Negative); Crystals Negative HPF (Negative); Epithelial Cells Negative HPF (Negative); Mucus Negative (Negative); Other Cells Negative (Negative); RBC Negative HPF (0-2); WBC Negative HPF (0-5)
--- NOTE | 2020-09-22 19:20 | NUR.NOTE ---
pt ate ham sandwich and a glass of orange juice. tolerated well.:
== END 2020-09-22 20:21 | disposition home or self-care (01) ==
PROVIDERS: Emergency Provider Nurse Practitioner Acute Care; PCP Family Medicine
DX: N17.9 Acute kidney failure, unspecified; I95.9 Hypotension, unspecified; I10 Essential (primary) hypertension; F44.9 Dissociative and conversion disorder, unspecified; Z87.891 Personal history of nicotine dependence
CPT/HCPCS: 36415; 80053; 93005; 96360; 96361; 99285; 71045; 81003; 81015; 83605; 83735; 84484; 85025; 85379; 93010

== ENCOUNTER 2020-09-24 02:36 | Outpatient (CLI) | payer OTHER, SELFPAY ==
[2020-09-24 11:49] LABS: Anion Gap 6.6 mmol/L (3-11); BUN 11 mg/dL (7-18); CO2 27.4 mmol/L (21.0-32.0); CREATININE 0.87 mg/dL (0.70-1.30); Chloride 104 mmol/L (98-107); Glucose 97 mg/dL (74-106); Potassium 4.5 mmol/L (3.5-5.1); Sodium 138 mmol/L (136-145)
== END 2020-09-24 02:56 ==
PROVIDERS: PCP Family Medicine; Visit Provider Nurse Practitioner Acute Care
DX: N17.9 Acute kidney failure, unspecified (principal)
CPT/HCPCS: 36415; 80048

== ENCOUNTER 2020-09-25 21:17 | Emergency (ER) | payer OTHER, SELFPAY ==
[2020-09-25] VITALS (12 sets, daily range): BP systolic 167–200; BP diastolic 91–108; PULSE 75–80; RESP 14–27; TEMP 36.5; O2SAT 95–98
--- NOTE | 2020-09-25 21:15 | RT.EKG_ITS ---
APPROVED REPORT Exam: Resting ECG Patient Location: E HR:78 bpm ECG Measurements Heart Rate 78 AXIS CA 182 P 71 QRSd 97 QRS 9 QT 377 T 35 QTc 429 Conclusion Sinus rhythm...normal P axis, V-rate 60- 99 Physician: No STEMI
--- NOTE | 2020-09-25 21:18 | W.ED.GENAD ---
Discharge Plan Disposition Patient Disposition: HOME Condition: Improving Discharge Details Clinical Impression: Atypical chest pain, Paresthesia, Hypertension Primary Care Provider: Enrique Plascencia ED Provider: Suad Mercado Home Meds and New Rx's Prescriptions: Continued mirtazapine [Remeron] 15 mg tablet 15 mg PO QHS Qty: 30 RF: 6 methocarbamol 750 mg tablet 750 mg PO QID RF: 0 metoprolol tartrate 25 mg tablet 50 mg PO BID Qty: 120 RF: 11 chlorthalidone 25 mg tablet 25 mg PO DAILY Qty: 30 RF: 11 gabapentin [Neurontin] 600 mg tablet 600 mg PO QID Qty: 120 RF: 5 omeprazole magnesium [Prilosec OTC] 20 MG tablet,delayed release (DR/EC) 20 mg PO DAILY RF: 0 acetaminophen 500 mg Tablet 1,000 mg PO TID PRN PRNRF: 0 melatonin 3 mg Tablet Extended Release 3 mg PO HS Qty: 0 RF: 0 Discharge Instructions Instructions: Chest Pain (ED), Hypertension (ED) Additional Instructions: Please continue with your current regimen of pain medications as well as antihypertensives. Please continue to monitor your blood pressure. It was again notably elevated while here. Please contact your primary care to discuss this further. I have rechecked care management I have asked that they ensure you have close follow-up with pain management. If your pain changes can you develop shortness of breath, difficulty breathing, vomiting or other new/worsening symptoms to seek care urgently once again. Otherwise, I would like you to follow-up again with your primary care as well as pain management. Referrals: Enrique Plascencia [Primary Care Provider] - Medical Decision Making Patient is a 55-year-old male presenting today with chief complaint of recurrent back pain. Patient was here multiple times last month for the same. He has been having severe thoracic pain that radiates around his ribs to the anterior aspect of his chest. States that he has numbness around this area but that sensation is intact. She denies any palpitations. Describing the pain as spasms. No shortness of breath. No difficulty breathing. Pain is worse with movement. He reports the pain has not resolved since his discharge on 09/13/2020. Pain is chronic, has been present for years with waxing/waning times. While pain was improved at the time of recent discharge, it is continued to increase since then. He states that he was referred to a pain specialist was not able to see them till the end of the month. Patient did work with PT this morning. He was seen by PCP today for f/u. He states that he was at rest when pain started to increase this evening. Pain worse with deep inspiration and movement. Patient was also seen here on 09/22/2020 for hypertension. Patient is physically quite hypertensive with a systolic between 170 and 190. However, after medication adjustments he was hypertensive. He states that since the change his medications his blood pressure slowly been creeping up so that now is back to his typical 170-190 when he is in pain. He states that he does check his blood pressure multiple times a day. He was seen by his primary care provider today. When not in pain, he states it is much lower in the 130-140 range. Denies COHEN, vision changes. On exam, patient appears uncomfortable. He is moaning in discomfort. He prefers to be in a more upright position to help with his back pain. He has 2+ distal pulses all extremities. His lung villarreal are clear. He has normal cardiac exam. No JVD. He is diffusely tender with gentle palpation about his chest wall. Not appreciate any rash. Abdomen is benign. Endorsing diffuse midline discomfort but none seems to be elicited on exam. I see no evidence of infection. No step-off. He has no weakness his lower extremities, reflexes are equal bilaterally, no saddle paresthesias. I reviewed patient's chart at length. He has had multiple CTA of his chest and abdomen assessing for potential aneurysm or dissection. If his pain is very much the same that has been in the past and sounds today really musculoskeletal in nature, I do not see need for repeat imaging at this point. Patient also had MRI of his thoracic spine last month and had consultation with neurology. He has no neurological deficits on exam. Neurology was noted his pain was radicular in nature. Patient has been using gabapentin, methocarbamol for his discomfort. Despite this, the patient does have frequent exacerbations of his discomfort. His history is inconsistent with ACS although ECG, troponin will be obtained out of abundance of caution. No infectious symptoms. EKG was obtained and reviewed by Dr. Grewal no acute abnormalities noted. Labs reviewed. No leukocytosis. Stable H&H. No significant electrolyte abnormalities. His troponin is negative. FINDINGS: Lungs: Scarring and or atelectasis in left lung base about elevated hemidiaphragm. No consolidation. Pleural space: Left pleural effusion cannot be excluded. No pneumothorax. Heart/Mediastinum: Cardiomegaly. Diaphragm: Elevation of left hemidiaphragm more pronounced. Bones/joints: Prior cervical spine surgery. Degenerative changes. IMPRESSION: 1. Cardiomegaly. 2. Left pleural effusion cannot be excluded. Discussed these findigns with the patient. He continues to be hypertensive but more within his normal range. He states that his pain overall is much improved after IV morphine but that he has right sided rib pain. Reports that this is always the most bothersome. Reports that Toradol normally works well for him and is requesting this in addition to the morphine. Patient is feeling improved and requesting discharge. He does not want ot stay for his repeat troponin. He expresses frustration with not being ableto see pain management in a more timely manner. I have asked care managemetn to reach out to [facility] patient in hopes that htis can be moved up or referral can be went to alterantive location. He does report that genreally the gabapentin and mathocarbamol works well for him. Unclear if this increased pain is associated with overuse with PT today. Patient remains hypertensive but this is baseline for the patient on chart review. 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 He was given return precautions. is driving. All questions and concerns were addressed, he is in agreemtn with this plan. HPI General Mode of arrival: wheelchair. Date/Time Provider Initiated Documentation: 09/25/20 21:18. Limitations to Documentation: no limitations. Information obtained by: patient, RN notes reviewed and old records reviewed. History of Present Illness 55 year old M presents to the emergency department with the chief complaint of back and chest wall pain, described as severe and similar to prior episodes, with intensity rated at 10. Quality is described as other (spasms), and is localized to the back. Patient reports radiation to (around chest). Patient started experiencing this week(s) and it has been constant. Immobilization improves symptom(s), Movement worsens symptoms . Patient notes no other symptoms.. Patient did receive the following treatments prior to arrival, other Related Data Home Medications Medication Instructions Recorded Confirmed omeprazole magnesium [Prilosec OTC] 20 mg PO DAILY 12/25/16 09/25/20 mirtazapine 15 mg tablet 15 mg PO QHS #30 tab 08/30/20 09/25/20 acetaminophen 1,000 mg PO TID PRN PRN 09/10/20 09/25/20 melatonin 3 mg PO HS #0 tab 09/13/20 09/25/20 gabapentin 600 mg tablet 600 mg PO QID #120 tab 09/19/20 09/25/20 chlorthalidone 25 mg tablet 25 mg PO DAILY #30 tab 09/25/20 09/25/20 methocarbamol 750 mg tablet 750 mg PO QID tab 09/25/20 09/25/20 metoprolol tartrate 25 mg tablet 50 mg PO BID #120 tab 09/25/20 Previous Rx's Medication Instructions Recorded mirtazapine 15 mg tablet 15 mg PO QHS #30 tab 08/30/20 melatonin 3 mg PO HS #0 tab 09/13/20 gabapentin 600 mg tablet 600 mg PO QID #120 tab 09/19/20 chlorthalidone 25 mg tablet 25 mg PO DAILY #30 tab 09/25/20 metoprolol tartrate 25 mg tablet 50 mg PO BID #120 tab 09/25/20 Allergies Allergy/AdvReac Type Severity Reaction Status Date / Time shellfish derived Allergy Unknown Verified 09/25/20 21:22 General ALMAZ: 3 Review of Systems Constitutional Constitutional: Reports as per HPI, Denies chills, Denies fever(s), Denies headache(s), Denies lethargy and Denies poor appetite Eyes Eyes: Denies change in vision ENT Ears, Nose, Mouth, and Throat: Denies dizziness and Denies headache(s) Cardiovascular Cardiovascular: Reports as per HPI, Reports chest pain (pain radiating around chest wall from back), Denies chest pain at rest, Denies pedal edema, Denies irregular heart rhythm, Denies leg edema, Denies lightheadedness, Denies dyspnea and Denies dyspnea on exertion Respiratory Respiratory: Reports as per HPI, Denies chest congestion, Denies cough, Reports pain on inspiration, Denies dyspnea, Denies dyspnea on exertion and Denies wheezing Gastrointestinal Gastrointestinal: Reports as per HPI, Denies abdominal pain, Denies diarrhea, Denies nausea and Denies vomiting Genitourinary Genitourinary: Denies system reviewed and no additional complaints, except as documented (denies change in urinary habits) Musculoskeletal Musculoskeletal: Reports as per HPI, Reports back pain, Reports numbness (reports numb circumfrencially around chest but sens intact) and Reports other (muscle spasms) Integumentary/Breasts Skin/Breast: Reports as per HPI and Denies rash Neurologic Neurologic: Reports as per HPI, Denies dizziness, Denies headache(s) and Reports numbness (reports numb circumfrencially around chest but sens intact) Allergic/Immunologic Allergic/Immunologic: Denies wheezing [facility] Medical History Back pain Cervical spinal stenosis cervical spine fusion 2006-Dr. Christian C4 right foraminotomy Dr Christian 03/31 Chronic obstructive lung disease Foreign body (FB) in soft tissue (~01/04/19) Fracture of thoracic spine GERD (gastroesophageal reflux disease) H/O hemorrhoids History of alcoholism and drug abuse HTN (hypertension) Lower urinary tract symptoms (LUTS) (11/29/15) Osteomyelitis of lower leg (10/14/05) foot Surgical History History of spinal fusion History of umbilical hernia repair S/P colonoscopy (~01/04/19) S/P hemorrhoidectomy Spinal Fusion (~2006) Status post tonsillectomy and adenoidectomy Family History Other Adopted Social History (Updated 09/19/20 @ 12:54 by Elana Sanderson LPN) Smoking/Tobacco Use Status: Former Tobacco Use Tobacco: How many years used: 15 Smoking risk assessment performed?: Yes Alcohol Intake: former Drug use: Never Substance use type: does not use Household members: spouse Housing: house Number of Children: 4 number of grandchildren: 5 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 Pets and animals: Yes Pets and animals: dog(s) Current gender identity: male What is your relationship status?: Panel score (0-1 are the most socially isolated patients): 1 Seatbelt use: always Do you feel safe at home: Yes Do you feel safe in your relationship?: Yes Exam Const General: cooperative, healthy appearing, uncomfortable, no acute distress, well developed and anxious Nutritional Appearance: well nourished and overweight Orientation: alert, awake and oriented x3 [facility] Head: normal to inspection Ears: hearing grossly normal bilaterally Mouth: moist mucous membranes Chest Chest: normal inspection of the chest, normal palpation of entire chest wall, no crepitus and tenderness (diffuse, more on the right side than left) other (no rash) Resp Effort & Inspection: normal respiratory effort, able to speak in complete sentences and no respiratory distress Auscultation: clear to auscultation bilaterally, no rales, no rhonchi and no wheezes Cardio Rate: regular rate Rhythm: regular rhythm Heart Sounds: S1 normal and S2 normal GI Inspection: normal to inspection, no edema and non-distended Palpation: soft, no hepatosplenomegaly, not firm, no guarding, not rigid and nontender Auscultation: normal bowel sounds Back/Spine/Pelvis Back: no CVA tenderness Thoracic/Lumbar Spine: thoracic and lumbar spine normal to inspection Skin General skin exam: no rashes or lesions noted Trauma: no lacerations or abrasions Neuro General: patient alert, patient awake and patient oriented x3 Cognition: normal cognition Speech: speech normal Gait: normal gait Motor: muscle tone normal throughout, strength 5/5 throughout, no pronator drift, no movement abnormalities noted and no fasciculations Sensory Exam: no sensory deficits noted (no saddle paresthesias) DTR's: Rt Patellar: 2+, Lt Patellar: 2+, Rt Ankle: 2+ and Lt Ankle: 2+ Plantar Reflexes: Equivocal: bilateral Extrem General: normal to inspection, capillary refill normal, no pedal edema, no calf tenderness, normal gait and other (2+ distal pulses in all extremities) Psych Appearance: grossly normal and well kempt Mental Status: mental status grossly normal Speech and Movement: speech and movement normal
[2020-09-25 21:53] LABS: Abs Immature Grans 0.06 10^3/uL (0.0-0.06); Absolute Basophil Count 0.07 10^3/uL (0.0-0.2); Absolute Eosinophil Count 0.36 10^3/uL (0.0-0.7); Absolute Lymphocyte Count 2.38 10^3/uL (1.2-3.4); Absolute Monocyte Count 0.92 10^3/uL (0.1-0.8); Absolute Neutrophil Count 5.96 10^3/uL (1.2-6.7); Basophils % 0.7; Eosinophils % 3.7; HGB 14.8 g/dL (13.5-17.5); Immature Grans % 0.6; Lymphocytes % 24.4; MCH 29.5 pg (27.0-33.0); MCHC 34.4 % (32.0-36.0); MCV 85.8 fL (80-95); MPV 9.2 fL (8.0-11.0); Monocytes % 9.4; Neutrophils % 61.2; Nucleated RBC 0 %; Platelet Count 336 10^3/uL (130-400); RBC 5.01 10^6/uL (4.36-5.78); RDW 12.9 % (11.8-14.1); RDW-SD 40.1 fL; WBC 9.75 10^3/uL (4.4-10.8)
[2020-09-25 22:11] LABS: PTT Activated 24.3 sec (21.0-27.5); Prothrombin Time 10.1 sec (9.3-11.0)
[2020-09-25 22:17] LABS: ALT 14 U/L (16-63); AST 7 U/L (15-37); Albumin 3.5 g/dL (3.4-5.0); Alkaline Phosphatase 84 U/L (46-116); Anion Gap 8.8 mmol/L (3-11); BUN 17 mg/dL (7-18); Bilirubin, Total 0.4 mg/dL (0.2-1.0); CO2 25.2 mmol/L (21.0-32.0); CREATININE 1.14 mg/dL (0.70-1.30); Calcium 9.1 mg/dL (8.5-10.1); Chloride 101 mmol/L (98-107); Glucose 119 mg/dL (74-106); Potassium 4.2 mmol/L (3.5-5.1); Sodium 135 mmol/L (136-145); Total Protein 7.1 g/dL (6.4-8.2)
[2020-09-25 22:18] LABS: Troponin I < 0.05 ng/mL (<0.06)
--- NOTE | 2020-09-25 22:42 | DI.RAD_ITS ---
EXAM: XR PORTABLE CHEST AP CLINICAL HISTORY: CP TECHNIQUE: 2D digital imaging was performed. COMPARISON: CR,XR XR PORTABLE CHEST AP from 09/22/2020 FINDINGS: MEDIASTINUM: Normal. HEART: Normal. PULMONARY VASCULATURE: Normal. LUNGS: There is a persistent left basilar atelectasis or scarring. No new pulmonary infiltrates are seen. PLEURAL SPACE: There is again seen blunting of the left costophrenic angle suggesting a small left pl eural effusion. It appears stable. No pneumothorax. BONE:Within normal limits for the patient's age. OTHER FINDINGS:There is again seen elevation of the left hemidiaphragm. IMPRESSION: Stable left basilar infiltrate which may represent atelectasis. Stable probable small left pleural effusion. DATA REPOSITORY: RADIATION DOSE DELIVERED:
--- NOTE | 2020-09-25 23:05 | DI.VRAD_ITS ---
PROCEDURE INFORMATION: Exam: XR Chest, 1 View Exam date and time: 09/25/2020 9:29 PM Age: 55 years old Clinical indication: Chest pain; Type not specified TECHNIQUE: Imaging protocol: XR of the chest Views: 1 view. COMPARISON: CR XR PORTABLE CHEST AP 09/22/2020 6:00 PM FINDINGS: Lungs: Scarring and or atelectasis in left lung base about elevated hemidiaphragm. No consolidation. Pleural space: Left pleural effusion cannot be excluded. No pneumothorax. Heart/Mediastinum: Cardiomegaly. Diaphragm: Elevation of left hemidiaphragm more pronounced. Bones/joints: Prior cervical spine surgery. Degenerative changes. IMPRESSION: 1. Cardiomegaly. 2. Left pleural effusion cannot be excluded. Dictated and Authenticated by: Trent Powell MD. Ordering:LAURA Borjas MD
[2020-09-25] MEDS: Ketorolac 30 MG/ML VIAL IVP (23:24)
--- NOTE | 2020-09-26 01:37 | NUR.NOTE ---
care management referral made for referal to pain management and follow up. [facility] ED Nursing Note:
== END 2020-09-25 23:51 | disposition home or self-care (01) ==
PROVIDERS: Emergency Provider Physician Assistant; PCP Family Medicine
DX: R07.89 Other chest pain (principal); I10 Essential (primary) hypertension; R20.2 Paresthesia of skin; M54.6 Pain in thoracic spine; G89.29 Other chronic pain; J44.9 Chronic obstructive pulmonary disease, unspecified; Z87.891 Personal history of nicotine dependence
CPT/HCPCS: 36415; 80053; 93005; 96374; 96375; 99285; 71045; 83735; 84484; 85025; 85610; 85730; 93010; J1885

== ENCOUNTER 2020-10-18 10:25 | Outpatient (CLI) | payer OTHER, SELFPAY ==
--- NOTE | 2020-10-18 09:45 | DI.RAD_ITS ---
EXAM: XR SHOULDER RT COMPLETE 2+V CLINICAL HISTORY: right shoulder pain. TECHNIQUE: 2D digital imaging was performed. COMPARISON: CR LEFT SHOULDER COMPLETE from 04/13/2013 FINDINGS: BONES: No acute fracture is present. No bony destructive lesion is seen. JOINTS: No dislocation present. There is spurring at the AC joint, mild. There is moderate spurrin g of the glenoid. There is minimal spurring at the adjacent aspect of the humeral head. SOFT TISSUE: Normal. No tendon or joint space calcifications are seen. IMPRESSION: [id number] degenerative changes. DATA REPOSITORY: RADIATION DOSE DELIVERED:
== END 2020-10-18 10:45 ==
PROVIDERS: PCP Family Medicine; Referring Provider Family Medicine; Visit Provider Student in an Organized Health Care Education/Training Program
DX: M19.011 Primary osteoarthritis, right shoulder (principal)
CPT/HCPCS: 73030

== ENCOUNTER 2020-10-22 02:35 | Outpatient (CLI) | payer OTHER, SELFPAY ==
--- NOTE | 2020-10-22 09:00 | DI.CT_ITS ---
EXAM: CT CHEST W CLINICAL HISTORY: Left lung infiltrate noticed on chest x-ray09/22/20,DECREASED BREATH SOUNDS. TECHNIQUE: Imaging Protocol: Axial CT angiography was performed with multi-slice acquisition and mu lti-planar and/or 3D reconstructions. CONTRAST MATERIAL: Intravenous: Omnipaque 350 Contrast volume:structured data in ml COMPARISON: CT CHEST WITH CONTRAST from 11/30/2008 CR,XR XR PORTABLE CHEST AP from 09/25/2020 FINDINGS: CT examination of the chest was performed with intravenous infusion of 100 cc of Omnipaque 350. The lungs are predominantly clear, however there is an area of atelectasis and/or consolidation invol ving the left lung base with air bronchograms noted in this area. There is small associated pleural effusion. Findings may represent infectious process, underlying neoplastic disease not excluded. No pleural effusion. Tracheobronchial tree appears intact. No evidence of pulmonary embolic disease. Thoracic aorta is of normal diameter, no thoracic aortic an eurysm or dissection, major branch vessels appear intact. No mediastinal or hilar adenopathy. Images obtained through the upper abdomen show unremarkable appearance of the visualized portions of the liver, spleen, pancreas, adrenals, and kidneys with an incidental small left renal cyst.. IMPRESSION: Left lower lobe pulmonary consolidation and/or atelectasis. Please correlate clinically regarding po ssible infectious process. Underlying neoplastic disease not excluded, follow-up examinations are re quested following treatment. RADIATION DOSE DELIVERED: 720.39mGy.cm Total DLP 720.39mGy.cm Total DLP DATA REPOSITORY: All CT scans at this facility are submitted to the National Radiology Data Registry (NRDR) Dose Index Registry (DIR) with the [employer] (A[employer]). RADIATION OPTIMIZATION: All CT scans at this facility use at least one of these dose optimization te chniques: automated exposure control; mA and/or kV adjustment per patient size (includes targeted exa ms where dose is matched to clinical indication); or iterative reconstruction.
[2020-10-22] MEDS: Omnipaque 350 MG/ML 100 ML BTL IJ (15:33)
== END 2020-10-22 02:55 ==
PROVIDERS: PCP Family Medicine; Visit Provider Family Medicine
DX: R91.8 Other nonspecific abnormal finding of lung field (principal); R06.89 Other abnormalities of breathing
CPT/HCPCS: 71260; J3490

== ENCOUNTER 2020-10-31 00:45 | Outpatient (CLI) | payer OTHER, SELFPAY ==
--- NOTE | 2020-10-31 06:30 | DI.MRI_ITS ---
EXAM: MR UPPER JOINT RT WO CLINICAL HISTORY: SHOULDER PAIN,RT ROTATOR CUFF TEAR,M25.511,M75.101 TECHNIQUE: Multiplanar multisequence MRI of the shoulder was performed. COMPARISON: MR MR CERVICAL SPINE WO from 08/21/2020 CR XR SHOULDER RT COMPLETE 2+V from 10/18/2020 FINDINGS: MARROW:There is no evidence of fracture, Hill-Sachs deformity, nor ominous osseous lesions. Small evita ign bone island is noted in the anterior aspect of the humeral head. ROTATOR CUFF MECHANISM: AC JOINT/ACROMIUM: There are moderate degenerative changes in the acromioclavicular joint. No capsul ar rupture. Mild impingement upon the supraspinatus at this level. The chromium is not downsloping. Its under surface is concave without impinging hook.. There is no evidence of os acromiale. Supraspinatus: Mild tendinitis signal. No high-grade tear. No significant atrophy. Infraspinatus: Intact. No evidence tearing but there is a degenerative subarticular cyst evident whi ch is immediately subjacent to the insertion site.. No muscle atrophy. Teres Minor: Intact. No evidence of tear nor muscle atrophy. Subscapularis/anterior cuff: Intact. No abnormal signal at the level of the multipennate insertional fibers. No significant tear nor atrophy. BICEPS TENDON: Normally position in the intertubercular groove. No evidence of tear. Mild fluid in the tendon sheath. LABRUM: There is abnormal signal in the superior labrum posterior to the biceps insertion site consis tent with an element of SLAP-type tear. There is also small amount of fluid just above the superior labrum which may be a paralabral cyst. Also mild tearing of the posterior labrum evident.. Mild signal abnormality in the anterior labrum. GLENOHUMERAL JOINT: Small amount of increased joint fluid. No large joint effusion. No obvious loos e intra-articular body. No prominent chondral defect. No degenerative subarticular cysts. No eviden ce of capsular tear. The inferior glenohumeral ligament is intact. QUADRILATERAL SPACE: No evidence of mass in the region of the axillary nerve and dorsal circumflex hu meral vessels. Visualized triceps muscle at this level appears unremarkable. IMPRESSION: 1. Supraspinatus tendon signal increase but no high-grade tear. Appearance may reflect prior surgery . No fluid in the subacromial bursa. 2. Superior labral tear posterior to the biceps insertion consistent with element of SLAP-type injury . There is a small paralabral cyst just above the superior labrum. Also evidence of tearing in the posterior labrum and mild changes in the anterior labrum. 3. Mild degenerative changes in the glenohumeral joint. Moderate degenerative changes in the AC join t. DATA REPOSITORY:
== END 2020-10-31 01:05 ==
PROVIDERS: PCP Family Medicine; Visit Provider Student in an Organized Health Care Education/Training Program
DX: M25.511 Pain in right shoulder (principal); M19.011 Primary osteoarthritis, right shoulder; S43.431A Superior glenoid labrum lesion of right shoulder, initial encounter
CPT/HCPCS: 73221

== ENCOUNTER 2021-03-12 04:33 | Emergency (ER) | payer OTHER, SELFPAY ==
[2021-03-12 04:38] VITALS: BP 149/96; PULSE 89; RESP 16; TEMP 36.8; O2SAT 98
[2021-03-12] MEDS: Erythromycin Ophth Oint 3.5 GM TUBE OP (04:43)
[2021-03-12] MEDS: Balanced Salt Solution 15 ML BTL OP (04:43)
[2021-03-12] MEDS: Tetracaine 0.5% 4 ML BTL OP (04:44)
[2021-03-12] MEDS: Fluorescein STRIPS 100/BOX 1 MG OP (04:44)
--- NOTE | 2021-03-12 04:45 | ED.GENADUL_ITS ---
Discharge Plan Disposition Patient Disposition: HOME Condition: Stable Discharge Details Clinical Impression: Acute foreign body of left eye, Abrasion of left cornea Primary Care Provider: Enrique Plascencia ED Provider: Kike Hoffman Home Meds and New Rx's Prescriptions: Continued mirtazapine [Remeron] 15 mg tablet 15 mg PO QHS Qty: 30 RF: 6 gabapentin [Neurontin] 600 mg tablet 600 mg PO TID Qty: 90 RF: 5 omeprazole magnesium [Prilosec OTC] 20 MG tablet,delayed release (DR/EC) 20 mg PO DAILY RF: 0 levofloxacin 500 mg tablet 500 mg PO Q24H Qty: 10 RF: 0 albuterol sulfate [Ventolin HFA] 90 mcg/actuation HFA aerosol inhaler 2 puff inhalation Q6H PRN (Reason: shortness of breath or wheezing) Qty: 8.5 RF: 0 (DME) Aerochamber MV Spacer See Rx Instructions .ROUTE .MEDSUPPLY Qty: 1 RF: 0 lisinopril 20 mg tablet 20 mg PO DAILY Qty: 90 RF: 3 melatonin 3 mg Tablet Extended Release 3 mg PO HS Qty: 0 RF: 0 acetaminophen 500 mg tablet 1,000 mg PO TID PRN PRNRF: 0 Discharge Instructions Instructions: Corneal Abrasion (ED) Additional Instructions: use the erythromycin ointment every 6 hours while awake for 5 days or until the tube is gone if still symptomatic in 2 days see your primary care provider if you have worsening pain or decrease in vision return to the emergency department Medical Decision Making 55 yo male states he was working yesterday 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 Denies vision changes or fevers. His right eye has no symptoms per patient. On exam left eye conjunctiva is erythematous. Right conjunctiva normal. PERRL, no periorbital swelling, eomi. He states he feels a foreign body in the left upper eye under the eyelid. He had immediate relief of pain with instillation of tetracaine. 20/50 in both eyes individually without his glasses. On exam after upper eye lid eversion I removed a 1mm foregin body that appeared to be plastic or laminate. No other foreign bodies seen. On flouresceine staining negative kenny's test and does have 1mm corneal abrasion on conjunctiva at [address] on prophylactic erythromycin ointment, advised if still symptomatic in 2 days to be seen again either by pcp or cardiac specialist, and if worsening to return to the ED Differential Diagnosis Differential Diagnosis: corneal abrasion, foreign body HPI General Mode of arrival: ambulatory . Date/Time Provider Initiated Documentation: 03/12/21 04:35 . Limitations to Documentation: no limitations . Information obtained by: patient . History of Present Illness 55 year old M presents to the emergency department with the chief complaint of left eye pain, described as moderate, Quality is described as aching and sharp, and is localized to the eyes and left. Patient reports no radiation. Patient started experiencing this day(s) (1) and it has been constant. No relieving factors improve symptom(s), No exacerbating factors reported . Patient notes no other symptoms.. Patient did receive the following treatments prior to arrival, none Related Data Home Medications Medication Instructions Recorded Confirmed omeprazole magnesium [Prilosec OTC] 20 mg PO DAILY 12/25/16 11/27/20 mirtazapine 15 mg tablet 15 mg PO QHS #30 tab 08/30/20 11/27/20 melatonin 3 mg PO HS #0 tab 09/13/20 11/27/20 acetaminophen 500 mg tablet 1,000 mg PO TID PRN PRN 10/07/20 11/27/20 albuterol sulfate 90 mcg/actuation 2 puff INHALATION Q6H PRN #8.5 g 10/23/20 11/04/20 aerosol inhaler inhalational spacing device #1 ea 10/23/20 11/04/20 levofloxacin 500 mg tablet 500 mg PO Q24H #10 tab 10/23/20 11/04/20 gabapentin 600 mg tablet 600 mg PO TID #90 tab 11/27/20 11/27/20 lisinopril 20 mg tablet 20 mg PO DAILY #90 tab 12/25/20 Previous Rx's Medication Instructions Recorded mirtazapine 15 mg tablet 15 mg PO QHS #30 tab 08/30/20 melatonin 3 mg PO HS #0 tab 09/13/20 albuterol sulfate 90 mcg/actuation 2 puff INHALATION Q6H PRN #8.5 g 10/23/20 aerosol inhaler inhalational spacing device #1 ea 10/23/20 levofloxacin 500 mg tablet 500 mg PO Q24H #10 tab 10/23/20 gabapentin 600 mg tablet 600 mg PO TID #90 tab 11/27/20 lisinopril 20 mg tablet 20 mg PO DAILY #90 tab 12/25/20 Allergies Allergy/AdvReac Type Severity Reaction Status Date / Time shellfish derived Allergy Unknown Verified 11/04/20 08:14 General Stated Complaint: EyeProblem ALMAZ: 4 Review of Systems All systems reviewed & are unremarkable except as noted in HPI and below Constitutional Constitutional: Denies chills, Denies fever(s) and Denies weakness Cardiovascular Cardiovascular: Denies chest pain and Denies dyspnea Respiratory Respiratory: Denies cough and Denies dyspnea Gastrointestinal Gastrointestinal: Denies abdominal pain, Denies nausea and Denies vomiting Neurologic Neurologic: Denies weakness PFSH Medical History Back pain Cervical spinal stenosis cervical spine fusion 2006-Dr. Christian C4 right foraminotomy Dr Christian 03/31 Chronic obstructive lung disease Foreign body (FB) in soft tissue (~01/04/19) Fracture of thoracic spine GERD (gastroesophageal reflux disease) H/O hemorrhoids History of alcoholism and drug abuse HTN (hypertension) Lower urinary tract symptoms (LUTS) (11/29/15) Osteomyelitis of lower leg (10/14/05) foot Surgical History History of spinal fusion History of umbilical hernia repair S/P colonoscopy (~01/04/19) S/P hemorrhoidectomy Spinal Fusion (~2006) Status post tonsillectomy and adenoidectomy Family History Other Adopted Social History Smoking/Tobacco Use Status: Former Tobacco Use Tobacco: How many years used: 15 Smoking risk assessment performed?: Yes Alcohol Intake: former Drug use: Never Substance use type: does not use Household members: spouse Housing: house Number of Children: 4 number of grandchildren: 5 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 Exam Const General: no acute distress Orientation: alert HENMT Head: normal to inspection Ears: external ears normal General nose exam: external nose normal Mouth: moist mucous membranes Eyes Alignment and Position: alignment normal Neck Neck: normal visual inspection Resp Effort & Inspection: normal respiratory effort and able to speak in complete sentences Cardio Rate: regular rate Skin General skin exam: no rashes or lesions noted Neuro General: patient alert and patient oriented x3 Extrem General: normal to inspection Psych Mental Status: mental status grossly normal Course Vital Signs Vital signs: Vital Signs Temperature 36.8 C 03/12/21 04:38 Pulse 89 03/12/21 04:38 Respiratory Rate 16 03/12/21 04:38 Blood Pressure 149/96 H 03/12/21 04:38 Pulse Oximetry 98 03/12/21 04:38 Temperature 36.8 C 03/12/21 04:38 Temperature Source Temporal Artery Scan 03/12/21 04:38 Pulse 89 03/12/21 04:38 Respiratory Rate 16 03/12/21 04:38 Respiratory Effort 03/12/21 04:39 Blood Pressure 149/96 H 03/12/21 04:38 Blood Pressure Position Sitting 03/12/21 04:38 Pulse Oximetry 98 03/12/21 04:38 Pain Level 5 03/12/21 04:38
== END 2021-03-12 05:05 | disposition home or self-care (01) ==
PROVIDERS: Emergency Provider Emergency Medicine; PCP Family Medicine
DX: T15.82XA Foreign body in other and multiple parts of external eye, left eye, initial encounter (principal); S05.02XA Injury of conjunctiva and corneal abrasion without foreign body, left eye, initial encounter; X58.XXXA Exposure to other specified factors, initial encounter
CPT/HCPCS: 99283

== ENCOUNTER 2021-10-17 03:44 | Outpatient (CLI) | payer OTHER, SELFPAY ==
[2021-10-17 12:23] LABS: Source Nasal/Nares
[2021-10-17 15:14] LABS: COVID-19 PCR Negative (Negative)
== END 2021-10-17 03:45 | disposition home or self-care (01) ==
LOC: LBO 03:45
PROVIDERS: PCP Nurse Practitioner Family; Visit Provider Surgery
DX: Z20.822 Contact with and (suspected) exposure to COVID-19 (principal)
CPT/HCPCS: 87635

== ENCOUNTER 2021-10-20 10:36 | Day surgery (SDC) | payer OTHER, SELFPAY ==
--- NOTE | 2021-10-20 07:07 | ENDO_ITS ---
Date of service: 10/20/21 Time of Service: 13:32 Endoscopy Report DATE OF PROCEDURE: 10/20/21 PRE-OP DIAGNOSIS: Dysphagia POST-OP DIAGNOSIS: same (and mild inflammation) PROCEDURE: EGD with biopsies SURGEON: Kate Wiley ANESTHESIA TYPE: General:No Airway (Milana Torres CRNA) ESTIMATED BLOOD LOSS: 3 PATHOLOGY: other (antrum/cardia bx, GE junction bx) COMPLICATIONS: None DISPOSITION: same day INDICATIONS: Miquel is a pleasant 56-year-old gentleman who has been having a constricting feeling in his chest after eating. He also complains of frequent nausea, infrequent vomiting and bloating. He does have a history of reflux and takes 40 mg of Prilosec daily. Discussed with him that the symptoms most likely are caused to increased inflammation in his esophagus and stomach. Recommend upper endoscopy with biopsies to rule out H. pylori. Risks benefits and complications were reviewed with him. Risks, benefits and complications have been reviewed. Complications include but are not limited to bleeding, pain, perforation, sore throat, aspiration, and adverse reaction to the medications. Questions were entertained and answered to their satisfaction and they wished to proceed. No guarantees were given or implied. Proceed with EGD under sedation FINDINGS: mild inflammation of the stomach and esophagus PROCEDURE DESCRIPTION: After informed consent was obtained the patient was take to the procedure room and placed in a supine position. Monitors were applied and a time out was done. The patients name, date of , procedure type, allergies to medications and metal in their body was reviewed. A bite block was placed and the patient was sedated. Once sedated and comfortable the gastroscope was advanced through the oropharynx which was grossly normal into the esophagus. The proximal and mid- esophagus were normal. In the distal esophagus there was mild inflammation noted. The scope was advanced into the stomach and through the pylorus into the 3rd portion of the duodenum. The duodenum was noted to be normal. The scope was retracted back into the stomach and biopsies were done to rule out H. pylori. There were no ulcers. The scope was retroflexed. The cardia and fundus were noted to be normal. There was no hiatal hernia noted. The scope was retracted back into the esophagus and biopsies were done of the GE junction to rule out Leo's. The Z line was irregular. The GE junction was at 38 cm. The scope was removed and the patient was woken up and taken back to [facility] in stable condition. Follow up: 2 weeks in the office
--- NOTE | 2021-10-20 07:08 | W.PM.DSUDISC ---
Discharge Plan Disposition Patient Disposition: HOME Condition: Good Discharge Details Reason For Visit: Dysphagia Attending Provider: Kate Wiley Primary Care Provider: Jacob Pop Home Meds and New Rx's Prescriptions: New omeprazole 40 mg capsule,delayed release(DR/EC) 40 mg PO BID Qty: 28 RF: 0 Continued albuterol sulfate [Ventolin HFA] 90 mcg/actuation HFA aerosol inhaler 2 puff inhalation Q6H PRN (Reason: shortness of breath or wheezing) Qty: 8.5 RF: 0 (DME) Aerochamber MV Spacer See Rx Instructions .ROUTE .MEDSUPPLY Qty: 1 RF: 0 lisinopril 20 mg tablet 20 mg PO DAILY Qty: 90 RF: 3 melatonin 3 mg Tablet Extended Release 3 mg PO HS Qty: 0 RF: 0 acetaminophen 500 mg tablet 1,000 mg PO TID PRN PRNRF: 0 Discontinued omeprazole magnesium [Prilosec OTC] 20 mg tablet,delayed release (DR/EC) 40 mg PO DAILY RF: 0 Discharge Instructions Instructions: Gastritis (DC), Gastric Polyps (DC) Additional Instructions: Findings: moderate inflammation of the stomach mild inflammation of the esophagus Follow up: 2 weeks Please call if you develop: fevers >101.5 Nausea or Vomiting Abdominal pain that is not transient Rectal bleeding that is more then a tbsp A hard abdomen and inability to pass gas DAY SURGERY UNIT POST ENDOSCOPY INSTRUCTIONS Instructions for everyone who is given Anesthesia: For your safety, please do the following for the next 24 Hours: a. Do not drive or operate dangerous equipment b. Do not drink alcohol beverages or use any recreational drugs for the first 24 hours or while taking pain medications. The medications in your body may have a reaction that can be dangerous. c. Do not make any important decisions or sign any important papers 1. Generally there are no restrictions on your activity after a day or so has gone by, but you may feel a bit fatigued for a few days. 2. After you arrive home you may have a light meal and return to a normal diet as you can tolerate it without feeling sick to your stomach. 3. After surgery, you may feel pain or discomfort. This should be only transient, but if it persists please contact your doctor. 4. If there are any questions regarding the findings of your procedure, please feel free to contact your doctor. 6. If you are unable to contact your doctor with a problem, contact the hospital at [phone]. 7. Continue all your regular medications unless directed otherwise. I understand the above instructions and have no questions. Signature of Patient or Responsible Adult Escort Date/Time Name of Responsible Adult Escort Signature of Nurse Date/Time Referrals: Kate Wiley MD [ [facility] STAFF PHYSICIAN] - Activity:: Activity as Tolerated Diet:: As Tolerated Discharge Orders Discharge Orders: Discharge Order (Routine); Ordered 10/20/21 Ordered By: Kate Wiley
[2021-10-20 11:12] VITALS: BP 150/98; PULSE 65; RESP 18; TEMP 36.4; O2SAT 97
[2021-10-20] MEDS: Lactated Ringers 1,000 ML 80 ML IV (11:26)
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
[2021-10-20 12:48] VITALS: BMI 33.4
--- NOTE | 2021-10-20 13:03 | STOM_PTH ---
PATIENT: Miquel Kay LOC: [facility] U#:[id number] AGE/SX: 56/M ROOM: RE10/20/[address]: Kate Wiley MD : 1965 BED: DIS: 10/20/2021 SPEC #: [id number] RECD: 10/20/21 17:50 STATUS: CAROLYN RE #: [id number] CHRISTINE: 10/20/21 13:[address]: Kate Wiley DEPT: Surgical Specimen RECD BY: Drea Michael ENTERED: 10/20/21 17:51 SP TYPE: STOMACH OTHR DR: Jacob Pop, SIA Tissues: 1 - STOMACH BIOPSY 2 - ESOPHAGUS BIOPSY Procedures: GROSS AND MICRO LEVEL 4 Comments: [id number]
[2021-10-20 13:15] VITALS: BP 143/93; PULSE 84; RESP 16; TEMP 36.2; O2SAT 97
--- NOTE | 2021-10-20 13:15 | W.ANESPOSTOP ---
Postoperative Evaluation Date, Time and Location Date Performed: 10/20/21 Time Performed: 13:16 Patient Location: Day Surgery Unit Vital Signs Most Recent Imported Vital Signs: Most Recent Vital Signs Temp Pulse Resp BP Pulse Ox 36.4 C L 65 18 150/98 H 97 10/20/21 11:12 10/20/21 11:12 10/20/21 11:12 10/20/21 11:12 10/20/21 11:12 Most Recent Manually Entered Vital Signs: Adult Blood Pressure: 143/93 Heart Rate: 78 Respirations: 14 Oxygen Saturation (%): 97 Temperature (C): 36.2 C Pain Score (0-10 Scale): 0 Pain Score Most Recent Pain Score: Most Recent Pain Score Pain Level 0 10/20/21 11:12 Assessment Mental Status: Awake (Alert & Oriented to Patient Baseline) Airway and Respiratory Function: Patent airway with normal (patient baseline) respiratory exam Cardiovascular Function: Hemodynamically Stable Hydration Status: Adequately Hydrated Nausea & Vomiting: No Nausea or Vomiting Pain: Pt. Denies Any Pain Peripheral Nerve Block: Patient did not receive a nerve block
[2021-10-20 13:17] VITALS: BP 143/93; PULSE 78; RESP 14; TEMPC 36.2; O2SAT 97
[2021-10-20 13:40] VITALS: BP 155/101; PULSE 67; RESP 18; TEMP 36.3; O2SAT 98
== END 2021-10-20 14:17 | disposition home or self-care (01) ==
LOC: SUR 10:36
PROVIDERS: PCP Nurse Practitioner Family; Visit Provider Surgery
PROC: 0DJ68ZZ Inspection of Stomach, Via Natural or Artificial Opening Endoscopic (ICD-10-PCS; CPT 43235; principal; 2021-10-20 12:00)
DX: K29.70 Gastritis, unspecified, without bleeding (principal); K20.90 Esophagitis, unspecified without bleeding; K31.89 Other diseases of stomach and duodenum
CPT/HCPCS: 43239; 88305; J2001

== ENCOUNTER 2021-12-11 18:33 | Outpatient (REF) | payer OTHER, SELFPAY ==
[2021-12-11 13:34] LABS: ALT 24 U/L (16-63); AST 13 U/L (15-37); Albumin 3.9 g/dL (3.4-5.0); Alkaline Phosphatase 95 U/L (46-116); Anion Gap 10.4 mmol/L (3-11); BUN 14 mg/dL (7-18); Bilirubin, Total 0.5 mg/dL (0.2-1.0); CO2 25.6 mmol/L (21.0-32.0); CREATININE 0.7 mg/dL (0.70-1.30); Chloride 103 mmol/L (98-107); Glucose 92 mg/dL (74-106); Potassium 3.9 mmol/L (3.5-5.1); Sodium 139 mmol/L (136-145); Total Protein 7.4 g/dL (6.4-8.2)
[2021-12-11 14:05] LABS: TSH 0.73 uIU/mL (0.36-3.74)
== END 2021-12-11 18:34 | disposition home or self-care (01) ==
LOC: LBN 18:33
PROVIDERS: PCP Nurse Practitioner Family; Visit Provider Internal Medicine Cardiovascular Disease
DX: I10 Essential (primary) hypertension (principal); R53.83 Other fatigue
CPT/HCPCS: 80053; 84443

== ENCOUNTER 2021-12-29 08:17 | Outpatient (CLI) | payer OTHER, SELFPAY ==
--- NOTE | 2021-12-29 08:00 | DI.RAD_ITS ---
Exam(s) XR KNEE LT 3V AP,LAT,ARIANE EXAM: XR KNEE LT 3V AP,LAT,ARIANE CLINICAL HISTORY: LEFT KNEE PAIN. TECHNIQUE: 2D digital imaging was performed. COMPARISON: CR XR KNEE RT 4V AP,LAT,ARIANE,PAT from 04/09/2020 FINDINGS: Three views of the left knee reveal no obvious fractures but there is a joint effusion, signifying an internal derangement. No significant findings in the femoral condyles. No obvious tibial plateau f racture. Linear lucency through the epiphysis and metaphysis of the proximal tibial is most probably artifact. It is seen on the frontal view and appears to continued distal to the cortical surface an d therefore most probably artifact. Incidentally noted is some dystrophic calcification in the proximal 3rd of the calf. This is project ed over the proximal half of the tibia on the frontal view but is seen to be within soft tissues on t he lateral view. IMPRESSION: DATA REPOSITORY: RADIATION DOSE DELIVERED:
== END 2021-12-29 08:18 | disposition home or self-care (01) ==
LOC: DIORS 08:18
PROVIDERS: PCP Nurse Practitioner Family; Referring Provider Nurse Practitioner Family; Visit Provider Student in an Organized Health Care Education/Training Program
DX: M25.562 Pain in left knee (principal); M25.462 Effusion, left knee; M23.8X2 Other internal derangements of left knee
CPT/HCPCS: 73562

== ENCOUNTER 2022-01-27 16:07 | Outpatient (CLI) | payer OTHER, SELFPAY ==
--- NOTE | 2022-01-27 12:00 | DI.RAD_ITS ---
Exam(s) XR FINGER LT LITTLE EXAM: XR FINGER LT LITTLE CLINICAL HISTORY: r/o fx and foreign body, finger joint swelling, M25.449. TECHNIQUE: 2D digital imaging was performed. Three views. COMPARISON: None. FINDINGS: BONES: No acute fracture is present. No bony destructive lesion is seen. JOINTS: No dislocation present. Mild degenerative changes distal interphalangeal joint. SOFT TISSUE: No foreign body. No abnormal gas collection. IMPRESSION: No evidence of acute fracture, or foreign body. DATA REPOSITORY: RADIATION DOSE DELIVERED:
== END 2022-01-27 16:27 ==
LOC: DI 16:09
PROVIDERS: PCP Nurse Practitioner Family; Visit Provider Nurse Practitioner Family
DX: M25.542 Pain in joints of left hand; M79.645 Pain in left finger(s); M19.042 Primary osteoarthritis, left hand
CPT/HCPCS: 73140

== ENCOUNTER 2022-03-12 17:21 | Emergency (ER) | payer OTHER, SELFPAY ==
[2022-03-12 17:24] VITALS: BP 147/82; PULSE 83; RESP 16; TEMP 37.2; O2SAT 99
[2022-03-12] MEDS: Tetracaine 0.5% 4 ML BTL (17:39)
[2022-03-12] MEDS: Fluorescein STRIPS 100/BOX 1 MG (17:39)
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
[2022-03-12] MEDS: Erythromycin Ophth Oint 3.5 GM TUBE OP (17:58)
[2022-03-12] MEDS: Balanced Salt Solution 15 ML BTL OP (17:58)
--- NOTE | 2022-03-12 18:09 | NUR.NOTE ---
Nursing Note: PT INFO FAXED TO [facility] TO BE SEEN MIGUEL FOR A CORNEAL ABRASION. JOSE MANUEL, ED
== END 2022-03-12 18:21 | disposition home or self-care (01) ==
PROVIDERS: Emergency Provider Emergency Medicine; PCP Nurse Practitioner Family
DX: S05.01XA Injury of conjunctiva and corneal abrasion without foreign body, right eye, initial encounter (principal); X58.XXXA Exposure to other specified factors, initial encounter
CPT/HCPCS: 99283

== ENCOUNTER → 2022-04-07 01:34 | Outpatient (CLI) | payer OTHER, SELFPAY | PROVIDERS: PCP Nurse Practitioner Family; Visit Provider Internal Medicine Cardiovascular Disease ==

== ENCOUNTER 2022-05-20 12:36 | Outpatient (CLI) | payer OTHER, SELFPAY ==
[2022-05-20 12:56] LABS: ESR 21 mm/hr (0-20)
[2022-05-20 13:16] LABS: C-Reactive Protein 2.48 mg/dL (0.0-0.3)
[2022-05-21 10:22] LABS: Lyme Ab w Rflx to Lyme Confirm Positive (Negative)
[2022-05-21 11:28] LABS: Lyme IgG Ab Positive (Negative); Lyme IgM Ab Positive (Negative)
[2022-05-22 16:18] LABS: Anaplasma phagocytophilum Negative (Negative); B. miyamotoi PCR Negative (Negative); Babesia divergens/MO-1 Negative (Negative); Babesia duncani Negative (Negative); Babesia microti Negative (Negative); Ehrlichia chaffeensis Negative (Negative); Ehrlichia ewingii/canis Negative (Negative); Ehrlichia muris eauclairensis Negative (Negative)
== END 2022-05-20 12:37 | disposition home or self-care (01) ==
LOC: LBO 12:36
PROVIDERS: PCP Nurse Practitioner Family; Visit Provider Student in an Organized Health Care Education/Training Program
DX: M25.462 Effusion, left knee (principal); M25.562 Pain in left knee
CPT/HCPCS: 36415; 85652; 86617; 87798; 86140; 86618

== ENCOUNTER 2022-05-20 16:33 | Outpatient (REF) | payer OTHER, SELFPAY ==
[2022-05-20 15:08] LABS: Crystals (BF) See Comments
[2022-05-20 15:10] LABS: Crystals (BF) No Crystals seen
[2022-05-20 15:13] LABS: Clarity Cloudy; Nucleated Cells 26025 uL (0)
[2022-05-20 15:40] LABS: Mononuclear Cells 12 %; Polynuclear Cells 88 %
== END 2022-05-20 16:34 | disposition home or self-care (01) ==
LOC: LBN 16:33
PROVIDERS: PCP Nurse Practitioner Family; Visit Provider Student in an Organized Health Care Education/Training Program
DX: M25.462 Effusion, left knee (principal)
CPT/HCPCS: 87070; 87205; 89051; 89060

== ENCOUNTER 2022-07-07 11:59 | Outpatient (CLI) | payer OTHER, SELFPAY ==
--- NOTE | 2022-07-07 11:45 | DI.RAD_ITS ---
Exam(s) XR KNEE RT 3V AP,LAT,ARIANE EXAM: XR KNEE RT 3V AP,LAT,ARIANE CLINICAL HISTORY: right knee pain TECHNIQUE: COMPARISON: CR XR KNEE LT 3V AP,LAT,ARIANE from 12/29/2021 FINDINGS: Three views were obtained. There is mild narrowing of the medial tibiofemoral cartilaginous joint sp silvia. Otherwise cartilaginous joint spaces appear fairly well maintained. No gross joint effusion se en on the lateral film. Mild marginal osteophytes seen involving all 3 joints of the knee. IMPRESSION: Mild degenerative changes as described above. RADIATION DOSE DELIVERED: Total DLP
[2022-07-07 12:55] LABS: Clarity Clear; Nucleated Cells 323 uL (0)
[2022-07-07 13:40] LABS: Mononuclear Cells 83 %; Polynuclear Cells 17 %
[2022-07-10 17:02] LABS: Specimen Source Synovial
== END 2022-07-07 12:00 | disposition home or self-care (01) ==
LOC: DIORS 11:59
PROVIDERS: PCP Nurse Practitioner Family; Referring Provider Nurse Practitioner Family; Visit Provider Physician Assistant
DX: M17.11 Unilateral primary osteoarthritis, right knee (principal)
CPT/HCPCS: 73562; 87070; 87205; 87476; 89051

== ENCOUNTER 2022-09-30 09:43 | Day surgery (SDC) | payer OTHER, SELFPAY ==
[2022-09-30] VITALS (9 sets, daily range): BP systolic 95–154; BP diastolic 51–108; PULSE 60–75; RESP 11–18; TEMP 36.4–36.5; O2SAT 94–99; BMI 34.7
--- NOTE | 2022-09-30 10:04 | W.PM.DSUDISC ---
Date of service: 09/30/22 Time of Service: 10:05 Discharge Plan Disposition Patient Disposition: HOME Condition: Good Discharge Details Reason For Visit: R knee arthroscopy Attending Provider: Vel Villa Primary Care Provider: Jacob Pop Home Meds and New Rx's Prescriptions: New hydrocodone-acetaminophen 5-325 mg tablet 1 tab PO Q6H PRN (Reason: pain) Qty: 6 0RF Continued meloxicam 7.5 mg tablet 7.5 mg PO DAILY Qty: 90 0RF lisinopril-hydrochlorothiazide 20-25 mg tablet 1 tab PO DAILY Qty: 90 3RF albuterol sulfate [Ventolin HFA] 90 mcg/actuation HFA aerosol inhaler 2 puff inhalation Q6H PRN (Reason: shortness of breath or wheezing) Qty: 8.5 0RF (DME) Aerochamber MV Spacer See Rx Instructions .ROUTE .MEDSUPPLY Qty: 1 0RF Rx Instructions: As directed melatonin 3 mg Tablet Extended Release 3 mg PO HS Qty: 0 0RF acetaminophen 500 mg tablet 1,000 mg PO TID PRN PRN Label Comments: Currently taking BID omeprazole 40 mg capsule,delayed release(DR/EC) 40 mg PO BID Qty: 28 0RF naproxen sodium [Aleve] 220 mg Capsule 220 mg PO BID PRN Discharge Instructions Stand Alone Forms: Daisy Knee Arthroscopy Equipment/Supplies: Partial Weight Bearing Crutches Activity:: Activity as Tolerated Remove Dressings/Wound Care:: 72 hours Shower/Bathe:: 72 hours Diet:: As Tolerated Discharge Orders Discharge Orders: Discharge Order (Routine); Ordered 09/30/22 Ordered By: Ryan Purdy DS: Diagnosis Discharge Diagnosis (1) Tear of medial meniscus of right knee: Status: Acute
[2022-09-30] MEDS: Celecoxib 200 MG CAP 400 MG PO (10:12)
[2022-09-30] MEDS: Acetaminophen 500 MG TAB 1000 MG PO (10:12)
[2022-09-30] MEDS: Gabapentin 300 MG CAP PO (10:12)
[2022-09-30] MEDS: Lactated Ringers 1,000 ML 80 ML IV (10:15)
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
[2022-09-30] MEDS: ceFAZolin 2 GM/50 ML BAG IVPB (11:50)
[2022-09-30] MEDS: EPINEPHrine 30 MG/30 ML VIAL (12:24)
[2022-09-30] MEDS: Bupivacaine 0.5% Pres-Free 30 ML VIAL (12:24)
--- NOTE | 2022-09-30 12:38 | W.PM.OP ---
Date of service: 09/30/22 Time of Service: 12:38 Operative Note Operative Note DATE OF PROCEDURE: 09/30/22 PRE-OP DIAGNOSIS: Right Knee Medial Meniscus Tear POST-OP DIAGNOSIS: same (and Grade IV Medial Chondromalacia) PROCEDURE: Right Knee Arthroscopic Partial Medial Menisectomy and Medial Chondroplasty SURGEON: Vel Villa ANESTHESIA TYPE: General LMA/ETT Refer to Anesthesia Record ESTIMATED BLOOD LOSS: 0 PATHOLOGY: none sent COMPLICATIONS: None Patient was transported to: PACU Patient's condition: stable Indications: I have seen Miquel in clinic for symptoms of a meniscus tear. This was confirmed based on MRI and exam findings. Nonoperative measures were exhausted but disability and pain persisted. I discussed knee arthroscopy with meniscal intervention with the patient. I reviewed the risks of the procedure to include, but not limited to, bleeding, infection, pain, stiffness, damage to nerves or vessels, recurrence, blood clot. Despite these risks, the patient elected to proceed. Findings: A diagnostic arthroscopy was performed with the following findings: Suprapatellar Pouch: Moderate inflammatory changes, No loose bodies Medial Compartment: Complex medial meniscal tear, Intact meniscal root, Grade IV chondromalacia throughout the medial femur and focally over the medial tibia, No loose bodies Notch: Only a few fibers of ACL remaining, PCL intact Lateral Compartment: No meniscal tear, Intact meniscal root, No significant chondromalacia or signs of arthritis, No loose bodies Patellofemoral Compartment: No significant chondromalacia of the patella but Grade I of the trochlea, No apparent patellar maltracking Procedure Description: Miquel was greeted in the preoperative holding area where the correct side was identified and marked. The consent was reviewed with the patient and signed. The history and physical was updated. All questions were answered. He was taken back to the operating room. The patient was placed into the supine position on the operating room table. All bony prominences were well padded. Prophylactic antibiotics in the form of Cefazolin were administered. The right leg was then prepped with Chloraprep and draped in a standard fashion with stockinette and extremity drape. A timeout to confirm correct identity, side and site, procedure, allergies, anesthesia, and medical concerns was performed. The leg was placed into a pneumatic leg mijares, [id number]. A standard lateral portal was made at the lateral border of the patella tendon in line with the inferior pole of the patella, soft spot. The skin and deep tissue was incised sharply and the blunt trochar was inserted atraumatically. A diagnostic arthroscopy was performed and the findings are listed above. The suprapatellar pouch had moderate inflammatory changes. The patellofemoral articulation showed no articular damage of the patella with some grade I/II chondromalacia of the central trochlea with good tracking. The lateral gutter had no loose bodies and the medial gutter had no loose bodies. The knee was brought into some valgus stress in extension to open the medial compartment. A medial portal was made, localized by a spinal needle. The portal was created with an #11 blade through skin and capsule under direct visualization avoiding any meniscal injury. A probe was then inserted into the medial compartment. The medial compartment was fully inspected. The chondral surface of the tibia showed grade II chondromalacia throughout with focal grade IV chondromalacia over the medial one third of the tibia and the surface of the femur showed diffuse grade 3 and large swaths of grade IV chondromalacia. The medial meniscus had complex meniscal tear involving the posterior horn and posterior body extending to the root. The root itself was not destabilized. However, the majority of this meniscus was involved. Only a few peripheral fibers remain. After evaluation, the meniscus was debrided down to a stable base using a series of biters and arthroscopic delta. It was probed afterwards to confirm that the tear had been removed and the meniscus was stable. Cartilage surfaces were debrided of any flaps, leaving any intact fibers. The notch was then inspected which showed an grossly torn ACL with only a few fibers remaining and an intact PCL. The leg was then brought into a figure of 4 position. The lateral compartment was fully inspected with the arthroscope and a probe. The chondral surface of the lateral femur showed no significant chondromalacia. The chondral surface of the lateral tibia showed no significant chondromalacia. The lateral meniscus had no meniscal tear. The arthroscope was brought back into the suprapatellar pouch and the leg was in full extension. The knee was thoroughly irrigated with the arthroscopic fluid on high flow and pressure. Inflow was stopped and excess fluid was removed. The wounds were closed with 4-0 Nylon. They were dressed with Xeroform, 4x4 gauze, ABD pad, Kerlix and an BRANDI wrap. A cryo-cuff was applied. The patient tolerated the procedure well and was returned to the Same Day Surgery area in a stable condition suffering no known complication.
[2022-09-30] MEDS: HYDROcodone 5/Acetaminophen 325 TAB PO (13:37)
--- NOTE | 2022-09-30 14:29 | W.ANESPOSTOP ---
Postoperative Evaluation Date, Time and Location Date Performed: 09/30/22 Time Performed: 14:20 Patient Location: Day Surgery Unit Vital Signs Most Recent Imported Vital Signs: Most Recent Vital Signs Temp Pulse Resp BP Pulse Ox 36.5 C 70 18 131/90 99 09/30/22 13:49 09/30/22 13:49 09/30/22 13:49 09/30/22 14:09 09/30/22 13:49 Pain Score Most Recent Pain Score: Most Recent Pain Score Pain Level 0 09/30/22 14:09 Assessment Mental Status: Awake (Alert & Oriented to Patient Baseline) Airway and Respiratory Function: Patent airway with normal (patient baseline) respiratory exam Cardiovascular Function: Hemodynamically Stable Hydration Status: Adequately Hydrated Nausea & Vomiting: No Nausea or Vomiting Pain: Pt. Denies Any Pain Peripheral Nerve Block: Patient did not receive a nerve block
== END 2022-09-30 14:46 | disposition home or self-care (01) ==
PROVIDERS: PCP Nurse Practitioner Family; Visit Provider Student in an Organized Health Care Education/Training Program
PROC: (CPT 29870; principal; 2022-09-30 12:15)
DX: M23.231 Derangement of other medial meniscus due to old tear or injury, right knee (principal); M94.261 Chondromalacia, right knee
CPT/HCPCS: 29881; J0690; J1100; J1885; J2405; J2704; J3010

== ENCOUNTER 2023-05-19 11:01 | Emergency (ER) | payer OTHER, SELFPAY ==
[2023-05-19 11:11] VITALS: BP 126/95; PULSE 82; RESP 20; TEMP 37; O2SAT 99
--- NOTE | 2023-05-19 11:15 | RT.EKG_ITS ---
APPROVED REPORT Exam: Resting ECG Reason for Exam: lyme disease, fatigue Patient Location: E HR:71 bpm ECG Measurements Heart Rate 71 AXIS AR 183 P 75 QRSd 105 QRS 26 QT 388 T 20 QTc 423 Conclusion Sinus rhythm...normal P axis, V-rate 60- 99
[2023-05-19] MEDS: ACETAMINOPHEN 1,000 MG/100 ML BTL 400 MG IVPB (11:48)
[2023-05-19 11:54] LABS: Abs Immature Grans 0.05 10^3/uL (0.0-0.06); Absolute Basophil Count 0.06 10^3/uL (0.0-0.2); Absolute Eosinophil Count 0.17 10^3/uL (0.0-0.7); Absolute Lymphocyte Count 1.69 10^3/uL (1.2-3.4); Absolute Monocyte Count 0.64 10^3/uL (0.1-0.8); Absolute Neutrophil Count 3.64 10^3/uL (1.2-6.7); Eosinophils % 2.7; Immature Grans % 0.8; MCH 29.6 pg (27.0-33.0); MCHC 34.1 % (32.0-36.0); MCV 87 fL (80-95); MPV 9.9 fL (8.0-11.0); Monocytes % 10.2; Neutrophils % 58.3; Platelet Count 239 10^3/uL (130-400); RBC 5.07 10^6/uL (4.36-5.78); RDW-SD 41.1 fL; WBC 6.25 10^3/uL (4.4-10.8)
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
[2023-05-19 12:01] LABS: ESR 5 mm/hr (0-20)
[2023-05-19 12:11] LABS: ALT 26 U/L (16-63); AST 12 U/L (15-37); Albumin 3.9 g/dL (3.4-5.0); Alkaline Phosphatase 72 U/L (46-116); Anion Gap 8.9 mmol/L (3-11); BUN 12 mg/dL (7-18); Bilirubin, Total 0.5 mg/dL (0.2-1.0); CO2 28.1 mmol/L (21.0-32.0); CREATININE 0.9 mg/dL (0.70-1.30); Calcium 8.8 mg/dL (8.5-10.1); Chloride 103 mmol/L (98-107); Glucose 95 mg/dL (74-106); Potassium 3.8 mmol/L (3.5-5.1); Sodium 140 mmol/L (136-145); Total Protein 7.2 g/dL (6.4-8.2)
[2023-05-20 10:12] LABS: Lyme Ab w Rflx to Lyme Confirm Positive (Negative)
[2023-05-20 10:57] LABS: Lyme IgG Ab Positive (Negative); Lyme IgM Ab Positive (Negative)
[2023-05-22 17:48] LABS: Anaplasma phagocytophilum Negative (Negative); B. miyamotoi PCR Negative (Negative); Babesia divergens/MO-1 Negative (Negative); Babesia duncani Negative (Negative); Babesia microti Negative (Negative); Ehrlichia chaffeensis Negative (Negative); Ehrlichia ewingii/canis Negative (Negative); Ehrlichia muris eauclairensis Negative (Negative)
== END 2023-05-19 14:38 | disposition home or self-care (01) ==
PROVIDERS: Emergency Provider Student in an Organized Health Care Education/Training Program; PCP Nurse Practitioner Family
DX: M25.461 Effusion, right knee (principal); M25.561 Pain in right knee
CPT/HCPCS: 80053; 85652; 86617; 87798; 93005; 96374; 99284; 85025; 86140; 86618; 93010; J0131

== ENCOUNTER 2023-09-21 08:34 | Outpatient (CLI) | payer OTHER, SELFPAY ==
[2023-09-21 08:14] LABS: ESR 5 mm/hr (0-20)
[2023-09-21 08:33] LABS: C-Reactive Protein 0.17 mg/dL (0.0-0.3); CREATININE 0.9 mg/dL (0.70-1.30); Estimated GFR 98.38 (mL/min/1.73m2); Potassium 3.5 mmol/L (3.5-5.1)
[2023-09-21 18:07] LABS: Rheumatoid Factor <8.6 IU/mL (<12.0)
[2023-09-22 09:40] LABS: Cyclic Citrullinated Peptide <2.5 U/mL (<5.0)
[2023-09-22 14:35] LABS: ANA Interpretation Positive (Negative); ANA Titer Pattern 1:80 Speckled
[2023-09-24 12:52] LABS: dsDNA Ab, IgG <12.3 IU/mL (<30.0)
== END 2023-09-21 08:35 | disposition home or self-care (01) ==
LOC: LBO 08:34
PROVIDERS: PCP Nurse Practitioner Family; Visit Provider Student in an Organized Health Care Education/Training Program
DX: I10 Essential (primary) hypertension (principal); M25.561 Pain in right knee
CPT/HCPCS: 36415; 85652; 86200; 82565; 84132; 86038; 86140; 86225; 86431

== ENCOUNTER 2024-08-12 11:55 | Emergency (ER) | payer OTHER, SELFPAY ==
[2024-08-12 11:59] VITALS: BP 153/89; PULSE 70; RESP 18; TEMP 36.6; O2SAT 97
--- NOTE | 2024-08-12 12:37 | DI.RAD_ITS ---
Exam(s) XR SHOULDER RT COMPLETE 2+V EXAM: XR SHOULDER RT COMPLETE 2+V CLINICAL HISTORY: Cannot raise arm, eval injury. TECHNIQUE: 2D digital imaging was performed of the right shoulder. Five images were obtained. AP, Grashey, Y-view and axillary views were obtained. COMPARISON: CR XR SHOULDER RT COMPLETE 2+V from 10/18/2020 FINDINGS: BONES: No acute fracture is present. No bony destructive lesion is seen. JOINTS: No dislocation present. There are degenerative changes seen at the acromioclavicular joint. Glenohumeral joint is intact. SOFT TISSUE: Normal. IMPRESSION: 1. No acute fracture or dislocation. 2. Degenerative changes seen at the acromioclavicular joint. DATA REPOSITORY: RADIATION DOSE DELIVERED:
--- NOTE | 2024-08-12 12:55 | DI.VRAD_ITS ---
PROCEDURE INFORMATION: Exam: XR Right Shoulder Exam date and time: 08/12/2024 12:27 PM Age: 59 years old Clinical indication: Injury or trauma; Other: Working on a roof, pieces of wood fell off roof back onto him; Blunt trauma (contusions or hematomas); Shoulder; Right TECHNIQUE: Imaging protocol: Radiologic exam of the right shoulder. Views: 2 or more views. COMPARISON: CR XR SHOULDER RT COMPLETE 2+V 10/18/2020 10:05 AM FINDINGS: Bones/joints: No acute fracture or dislocation identified. There is mild degenerative change of the acromioclavicular joint. The glenohumeral articulation is intact. There is mild sclerosis of the glenoid fossa consistent with degenerative change. The scapula is intact. Soft tissues: No foreign bodies. IMPRESSION: 1. Mild degenerative change of the acromioclavicular joint and glenohumeral articulation but no acute fracture or dislocation identified. This does not exclude bone bruising or internal derangement. Dictated and Authenticated by: Harlan Roche MD. Ordering:ISSA Hameed MD
--- NOTE | 2024-08-12 13:00 | DI.RAD_ITS ---
Exam(s) XR ELBOW RT COMPLETE EXAM: XR ELBOW RT COMPLETE CLINICAL HISTORY: Injury, eval fx, joint effusion. TECHNIQUE: 2D digital imaging was performed of the left elbow. Three images were obtained. AP, lat eral and oblique views were obtained. COMPARISON: No exams were available for comparison FINDINGS: BONES: No acute fracture is present. No bony destructive lesion is seen. JOINTS: The elbow is normally aligned. No joint effusion is seen. Mild degenerative changes about the elbow. SOFT TISSUE: Normal. IMPRESSION: No acute fracture or dislocation. DATA REPOSITORY: RADIATION DOSE DELIVERED:
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
--- NOTE | 2024-08-12 14:04 | DI.VRAD_ITS ---
PROCEDURE INFORMATION: Exam: XR Right Elbow Exam date and time: 08/12/2024 1:25 PM Age: 59 years old Clinical indication: Other: Injury, eval FX, joint effusion TECHNIQUE: Imaging protocol: Radiologic exam of the right elbow. Views: 3 or more views. COMPARISON: MR UPPER JOINT RT WO 10/31/2020 8:11 AM FINDINGS: Bones/joints: No acute fracture or dislocation identified. There is no significant bony degenerative change. There is a tiny spur of the olecranon process. There are no erosive changes or bony destruction of the elbow joint. Soft tissues: No fat pad sign is identified. No soft tissue gas or foreign bodies. IMPRESSION: 1. No acute bony change identified. This does not exclude bone bruising or internal derangement. Dictated and Authenticated by: Harlan Roche MD. Ordering:ISSA Hameed MD
[2024-08-12] MEDS: Acetaminophen 500 MG TAB 1000 MG PO (14:26)
[2024-08-12] MEDS: oxyCODONE 5 MG TAB PO (14:26)
[2024-08-12 14:37] VITALS: BP 142/80; PULSE 70; RESP 18; TEMP 36.6; O2SAT 97
== END 2024-08-12 14:38 | disposition home or self-care (01) ==
PROVIDERS: Emergency Provider Emergency Medicine; PCP Nurse Practitioner Family
DX: M25.511 Pain in right shoulder (principal); M25.521 Pain in right elbow; X50.0XXA Overexertion from strenuous movement or load, initial encounter
CPT/HCPCS: 99284; 73030; 73080; 99283

== ENCOUNTER 2024-09-18 13:19 | Emergency (ER) | payer OTHER, SELFPAY ==
[2024-09-18] VITALS (14 sets, daily range): BP systolic 112–125; BP diastolic 60–71; PULSE 79–93; RESP 12–28; O2SAT 95–98
--- NOTE | 2024-09-18 13:15 | RT.EKG_ITS ---
APPROVED REPORT Exam: Resting ECG Reason for Exam: dizzy, chest pain Patient Location: E HR:86 bpm ECG Measurements Heart Rate 86 AXIS AZ 193 P 88 QRSd 115 QRS 53 QT 383 T -61 QTc 459 Conclusion Sinus rhythm...normal P axis, V-rate 60- 99 Nonspecific intraventricular conduction delay...QRSd >115mS, not LBBB/RBBB Probable inferior infarct, age indeterminate...Q>35mS, T neg, II III aVF Physician: no stemi
[2024-09-18 13:36] LABS: Abs Immature Grans 0.03 10^3/uL (0.0-0.06); Absolute Eosinophil Count 0.33 10^3/uL (0.0-0.7); Absolute Lymphocyte Count 2.78 10^3/uL (1.2-3.4); Absolute Monocyte Count 0.71 10^3/uL (0.1-0.8); Absolute Neutrophil Count 4.86 10^3/uL (1.2-6.7); Basophils % 1.1 %; Eosinophils % 3.7 %; HGB 15.1 g/dL (13.5-17.5); Immature Grans % 0.3 %; Lymphocytes % 31.6 %; MCH 29.5 pg (27.0-33.0); MCHC 33.6 % (32.0-36.0); MCV 88 fL (80-95); MPV 10.6 fL (8.0-11.0); Monocytes % 8.1 %; Neutrophils % 55.2 %; Platelet Count 310 10^3/uL (130-400); RBC 5.11 10^6/uL (4.36-5.78); RDW 12.5 % (11.8-14.1); RDW-SD 40.5 fL; WBC 8.81 10^3/uL (4.4-10.8)
[2024-09-18 13:50] LABS: PTT Activated 22.5 sec (23.6-32.8); Prothrombin Time 10.2 sec (9.1-11.1)
[2024-09-18] MEDS: Ibuprofen 800 MG TAB PO (14:00)
[2024-09-18] MEDS: Acetaminophen 500 MG TAB 1000 MG PO (14:00)
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
[2024-09-18 14:09] LABS: ALT 30 U/L (16-63); AST 16 U/L (15-37); Alkaline Phosphatase 84 U/L (46-116); BUN 16 mg/dL (7-18); Bilirubin, Total 0.52 mg/dL (0.2-1.0); CREATININE 1.1 mg/dL (0.70-1.30); Calcium 9.1 mg/dL (8.5-10.1); Chloride 107 mmol/L (98-107); Estimated GFR 76.85 (mL/min/1.73m2); Glucose 128 mg/dL (74-106); Potassium 3.8 mmol/L (3.5-5.1); Sodium 142 mmol/L (136-145); Total Protein 7.5 g/dL (6.4-8.2); Troponin I 6 ng/L (<or=76)
--- NOTE | 2024-09-18 14:40 | DI.RAD_ITS ---
Exam(s) XR CHEST 2V PA LATERAL EXAM: XR CHEST 2V PA LATERAL CLINICAL HISTORY: fall, left rib pain TECHNIQUE: 2D digital imaging was performed. Two views. COMPARISON: CR,XR XR PORTABLE CHEST AP from 09/25/[address] CHEST W from 10/22/2020 FINDINGS: HEART: Normal size. Aorta: Not dilated. PULMONARY VASCULATURE: Normal. MEDIASTINUM: Unremarkable. LUNGS: Clear. PLEURAL SPACE: No pleural effusion or pneumothorax. BONE:Stable lower thoracic compression fracture. SOFT TISSUES: Unremarkable. IMPRESSION: No acute abnormality. DATA REPOSITORY: RADIATION DOSE DELIVERED:
--- NOTE | 2024-09-18 14:41 | DI.RAD_ITS ---
Exam(s) XR FOREARM LT XR WRIST LT COMPLETE EXAM: XR WRIST LT COMPLETE CLINICAL HISTORY: fall, left wrist pain. TECHNIQUE: 2D digital imaging was performed. Three views of the wrist. Two views of the forearm COMPARISON: CR XR FOREARM LT from 09/18/2024 FINDINGS: BONES: No acute fracture is present. No bony destructive lesion is seen. JOINTS: The carpal bones are normally aligned. Advanced degenerative changes at the 1st carpal meta carpal joint. Mild degenerative changes at the elbow SOFT TISSUE: IV noted at the elbow. IMPRESSION: Degenerative changes at the 1st carpal metacarpal joint. No acute abnormality in the wrist or forear m. DATA REPOSITORY: RADIATION DOSE DELIVERED:
--- NOTE | 2024-09-18 14:41 | DI.RAD_ITS ---
Exam(s) XR SHOULDER LT COMPLETE 2+V EXAM: XR SHOULDER LT COMPLETE 2+V CLINICAL HISTORY: fall, landed on shoulder. TECHNIQUE: 2D digital imaging was performed. Three views. COMPARISON: CR,XR XR SHOULDER RT COMPLETE 2+V from 08/12/2024 FINDINGS: BONES: No acute fracture is present. No bony destructive lesion is seen. JOINTS: No dislocation present. Spurring at the glenohumeral joint. The joint space is maintained. The AC joint is not widened. SOFT TISSUE: Normal. IMPRESSION: Degenerative change. No acute abnormality. DATA REPOSITORY: RADIATION DOSE DELIVERED:
[2024-09-18 15:11] LABS: Troponin I 6 ng/L (<or=76)
[2024-09-18] MEDS: Diclofenac 1% Gel 100 GM TUBE TP (15:31)
== END 2024-09-18 15:44 | disposition home or self-care (01) ==
PROVIDERS: Emergency Provider Student in an Organized Health Care Education/Training Program; PCP Nurse Practitioner Family
DX: M25.532 Pain in left wrist (principal); M25.512 Pain in left shoulder; R07.9 Chest pain, unspecified; Z98.1 Arthrodesis status; Z87.891 Personal history of nicotine dependence; W17.89XA Other fall from one level to another, initial encounter; Y93.89 Activity, other specified
CPT/HCPCS: 80053; 93005; 99284; 71046; 73030; 73090; 73110; 84484; 85025; 85610; 85730; 93010

== ENCOUNTER 2025-05-01 06:20 | Emergency (ER) | payer OTHER, SELFPAY ==
[2025-05-01 06:23] VITALS: BP 148/122; PULSE 65; RESP 18; TEMP 36; O2SAT 99
--- NOTE | 2025-05-01 06:26 | W.ED.GENAD ---
Discharge Plan Disposition Patient Disposition: Home Condition: Good Discharge Details Clinical Impression: Early localized Lyme disease Primary Care Provider: Jacob Pop ED Provider: Latosha Kilpatrick Home Meds and New Rx's Prescriptions: New doxycycline hyclate 100 mg capsule 100 mg PO BID 10 Days Qty: 20 0RF Continued omeprazole 40 mg capsule,delayed release(DR/EC) 40 mg PO ONCE (DME) Aerochamber MV Spacer See Rx Instructions .ROUTE .MEDSUPPLY Qty: 1 0RF Rx Instructions: As directed lisinopril-hydrochlorothiazide 20-25 mg tablet 1 tab PO DAILY Qty: 90 3RF hydroxychloroquine 200 mg tablet 400 mg PO DAILY Patient Comments: TAKE TWO TABLETS BY MOUTH EVERY DAY Discharge Instructions Instructions: Lyme disease Additional Instructions: Doxycycline twice a day for the next 10 days. Call your primary care doctor today to schedule an appointment to followup on your visit here. At that visit please review the results of your tick panel (bloodwork) from today. Return to the emergency department for new or worsening symptoms. HPI General Mode of arrival: ambulatory. Date/Time Provider Initiated Documentation: 05/01/25 06:25. Limitations to Documentation: no limitations. Information obtained by: patient. HPI Narrative: 59yo with hx HTN, COPD, arthritis, presenting for rash. Tick bite 8 days ago to his thigh for which he was seen at urgent care and given dose of doxycycline ppx. Another tick 6 days on his left upper chest, engorged, removed with tweezers at home. Now with diffuse body aches and malaise, nausea, mild headache, and rash at site of tick bite. No fevers, chills, abdominal pain, dysuria, hematuria, numbness, tingling, weakness, or rash elsewhere. Otherwise in his usual state of health. doxy 100 BID 10 days Related Data Home Medications ?Medication ?Instructions ?Recorded ?Confirmed inhalational spacing device #1 ea 10/23/20 03/02/25 (Aerochamber MV spacer) hydroxychloroquine 200 mg tablet 400 mg PO DAILY 08/12/24 05/01/25 lisinopril 20 1 tab PO DAILY #90 tabs 11/16/24 05/01/25 mg-hydrochlorothiazide 25 mg tablet omeprazole 40 mg capsule,delayed 40 mg PO ONCE 11/20/24 05/01/25 release doxycycline hyclate 100 mg capsule 100 mg PO BID 10 days #20 caps 05/01/25 Previous Rx's ?Medication ?Instructions ?Recorded inhalational spacing device #1 ea 10/23/20 (Aerochamber MV spacer) lisinopril 20 1 tab PO DAILY #90 tabs 11/16/24 mg-hydrochlorothiazide 25 mg tablet doxycycline hyclate 100 mg capsule 100 mg PO BID 10 days #20 caps 05/01/25 Allergies Allergy/AdvReac Type Severity Reaction Status Date / Time shellfish derived Allergy Severe Anaphylaxis Verified 05/01/25 06:27 General Stated Complaint: InsectBite ALMAZ: 3 Review of Systems Narrative: see HPI Exam Narrative Exam Narrative: General: Alert, well appearing, well nourished, in no acute distress. Head: Normocephalic, atraumatic Neck: Trachea midline, ?Neck supple. Skin: Lesion to left upper anterior chest/neck consistent with tick bite, surrounding erythematous rash with central clearing Cardiac: ?RRR, no murmurs appreciated Resp: No respiratory distress. CTAB. Abd: ?Soft, non-distended, nontender Extremities: ?No deformities.? No peripheral edema. Neuro: ? GCS 15.? PERRL.? EOMI.? Fluent speech, no dysarthria. Motor- Moves all extremities freely against gravity Sensation- ?Intact to light touch and symmetric multiple dermatomes including upper and lower extremities CRANIAL NERVES: II: Pupils equal and reactive, III, IV, : EOM intact, no gaze preference or deviation, no nystagmus. V: normal sensation in V1, V2, and V3 segments bilaterally VII: no asymmetry, no nasolabial fold flattening VIII: normal hearing to speech IX, X: normal palatal elevation, no uvular deviation XI: 5/5 head turn and 5/5 shoulder shrug bilaterally XII: midline tongue protrusion Course Vital Signs Vital signs: Vital Signs Temperature 36.0 C L 05/01/25 06:23 Pulse 65 05/01/25 06:23 Respiratory Rate 18 05/01/25 06:23 Blood Pressure 148/122 H 05/01/25 06:23 Pulse Oximetry 99 05/01/25 06:23 Temperature 36.0 C L 05/01/25 06:23 Temperature Source Tympanic 05/01/25 06:23 Pulse 65 05/01/25 06:23 Respiratory Rate 18 06/17/25 06:23 Blood Pressure 148/122 H 05/01/25 06:23 Pulse Oximetry 99 05/01/25 06:23 Oxygen Delivery Method Room Air 05/01/25 06:23 Oxygen Flow Rate 0 05/01/25 06:23 Pain Level 6 05/01/25 06:23 Medical Decision Making 59yo with hx HTN, COPD, arthritis, presenting for rash. Tick bite 8 days ago to his thigh for which he was seen at urgent care and given dose of doxycycline ppx; another tick 6 days on his left upper chest, engorged, removed with tweezers at home. Now with symptoms consitent with early localized lyme infection. On exam clear erythema migrans rash surrounding a lesion on left upper chest/neck consistent with tick bite. Normal neuro exam and no neuro symptoms; no indication for LP. Not septic, not concerning for encephalitis or meningitis. Will treat empirically with 10 day course of doxycline which will cover both lyme and erlichosis. Tick panel sent. Patient states he needs to leave to go to work; he was instructed to call his PCP this morning to schedule an appointment to followup including to followup on the results of his tick panel. He verbalized understanding of the need to see his PCP for these results. Discharged home; discharge instructions and return precautions were reviewed with patient who verbalized understanding. All questions were answered and he is in full agreement with the plan. PFSH All Active Problems (Updated 05/01/25 @ 06:48 by Latosha Kilpatrick MD) Early localized Lyme disease (Acute) Screening for malignant neoplasm of skin (Acute) Polyarthralgia (Acute) Daily headache (Acute) Memory loss (Acute) Hypertension (Chronic) GERD (gastroesophageal reflux disease) (Acute) History of tobacco use (Acute) Rectal/anal stenosis (Acute) Umbilical hernia (Acute) Medical History (Updated 05/01/25 @ 06:48 by Latosha Kilpatrick MD) Effusion, left knee DEPO MEDROL 05/20/22 Internal derangement of left knee Depo-Medrol injection: 12/29/2021 Hypertensive urgency Complex tear of medial meniscus of right knee Internal derangement of right knee DEPO MEDROL 07/07/22 Other bursal cyst, left shoulder (05/11/14) Syncope and collapse (10/14/06) seizure; convulsive collapse Fracture of thoracic spine Postherpetic neuralgia Paralabral cyst of shoulder Back pain Hand paresthesia Neck pain Shoulder pain Cervical spinal stenosis cervical spine fusion 2006-Dr. Christian C4 right foraminotomy Dr Christian 03/31 Depression Degenerative disc disease, lumbar H/O hemorrhoids Osteomyelitis of lower leg (10/14/05) foot Migraine Lower urinary tract symptoms (LUTS) (11/29/15) Hypertension History of alcoholism and drug abuse Gastroesophageal reflux disease 1. H/O acute gastritis (alcoholic) 2. H.H. Depressive disorder Chronic obstructive lung disease pt. disagrees, unsure where this came come Anxiety GERD (gastroesophageal reflux disease) HTN (hypertension) Surgical History (Updated 12/27/24 @ 09:24 by Vani Kohler MD) Status post arthroscopy of right knee (09/29/22) Partial medial meniscectomy and chondromalacia History of hemorrhoidectomy (01/22/16) History of spinal fusion Status post tonsillectomy and adenoidectomy History of esophagogastroduodenoscopy (EGD) (~10/2021) History of umbilical hernia repair S/P colonoscopy (~01/04/19) S/P hemorrhoidectomy Spinal Fusion (~2006) Family History Other Adopted Social History Smoking/Tobacco Use Status: Former Tobacco Use Quit Date: 11/15/15 Tobacco: How many years used: 15 Smoking risk assessment performed?: Yes Alcohol Intake: former Drug use: Never Substance use type: does not use Household members: spouse Housing: house Number of Children: 4 number of grandchildren: 5 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
[2025-05-01] MEDS: Doxycycline Hyclate 100 MG CAP PO (06:59)
[2025-05-02 12:05] LABS: Lyme Ab w Rflx to Lyme Confirm Positive (Negative)
[2025-05-02 13:18] LABS: Lyme IgG Ab Positive (Negative); Lyme IgM Ab Positive (Negative)
[2025-05-04 12:38] LABS: Anaplasma phagocytophilum Negative (Negative); B. miyamotoi PCR Negative (Negative); Babesia divergens/MO-1 Negative (Negative); Babesia duncani Negative (Negative); Babesia microti Negative (Negative); Ehrlichia chaffeensis Negative (Negative); Ehrlichia ewingii/canis Negative (Negative); Ehrlichia muris eauclairensis Negative (Negative)
== END 2025-05-01 07:11 | disposition home or self-care (01) ==
PROVIDERS: Emergency Provider Student in an Organized Health Care Education/Training Program; PCP Nurse Practitioner Family
DX: S20.361A Insect bite (nonvenomous) of right front wall of thorax, initial encounter (principal); W57.XXXA Bitten or stung by nonvenomous insect and other nonvenomous arthropods, initial encounter; A69.20 Lyme disease, unspecified
CPT/HCPCS: 99283 ×2; 36415; 86617; 87798; 86618

== ENCOUNTER → 2025-10-04 05:50 | Outpatient (CLI) | payer OTHER, SELFPAY ==
--- NOTE | 2025-10-04 15:05 | DI.MRI_ITS ---
Exam(s) MR LUMBAR SPINE WO EXAM: MR LUMBAR SPINE WO CLINICAL HISTORY: low back pain, CHRONIC LEIF LOW BACK PAIN, M54.50, G89.29. TECHNIQUE: Multiplanar multisequence MRI of the Lumbar spine was performed. COMPARISON: MR MR LUMBAR SPINE WO/W from 08/19/[address] THORAX ABD/PEL CTA from 09/10/2020 CR XR SHOULDER LT COMPLETE 2+V from 09/18/2024 FINDINGS: Bones: The last intervertebral disc space is designated the L5/S1 level for the numbering purpose of this examination. The vertebral body heights are well maintained. Alignment: Stable mild L5-S1 spondylolisthesis. The marrow signal characteristics show degenerative signal changes at the L5-S1 level. Cord: The conus tip ends at the L1 level. It is of normal size and signal intensity. T12-L1: Small endplate osteophytes projecting anteriorly. No focal disc herniation is present. No central spinal canal stenosis.No neural foraminal stenosis. L1-2:Small endplate osteophytes projecting anteriorly. Mild concentric disc bulging. No focal disc herniation is present. No central spinal canal stenosis.No neural foraminal stenosis. L2-3:Mild loss of disc height. Small endplate osteophytes. [id number] concentric disc bulging. Mild facet joint degenerative changes. No focal disc herniation is present. No central spinal canal stenosis.No neural foraminal stenosis. L3-4: Normal disc height. Small endplate osteophytes and mild disc bulging. Mild facet degenerative changes.No focal disc herniation is present. No central spinal canal stenosis.No neural foraminal stenosis. L4-5:Mild disc height. No significant disc bulging. Mild facet degenerative changes. No focal disc herniation is present. No central spinal canal stenosis.No neural foraminal stenosis. L5-S1: Bilateral L5 spondylolysis and spondylolisthesis again noted. Severe loss of disc height. No focal disc herniation is present. No central spinal canal stenosis.Severe bilateral neural foraminal stenosis. The visualized SI joints and sacrum are unremarkable. Soft tissues: The paraspinal soft tissues are unremarkable. IMPRESSION: No evidence of a disc herniation. Stable appearance of degenerative disc changes, bilateral spondylolysis and spondylolisthesis at L5-S1 with severe bilateral neural foraminal narrowing. DATA REPOSITORY:
== END ==
LOC: DI 05:51
PROVIDERS: PCP Nurse Practitioner Family; Visit Provider Nurse Practitioner Family
DX: M54.50 Low back pain, unspecified (principal); G89.29 Other chronic pain
CPT/HCPCS: 72148

== ENCOUNTER 2025-10-26 10:51 | Emergency (ER) | payer OTHER, SELFPAY ==
[2025-10-26] VITALS (27 sets, daily range): BP systolic 127–169; BP diastolic 72–103; PULSE 81–102; RESP 8–41; TEMP 36.8; O2SAT 93–100
--- NOTE | 2025-10-26 11:15 | DI.CT_ITS ---
Exam(s) CT ABDOMEN PELVIS W EXAM: CT ABDOMEN PELVIS W CLINICAL HISTORY: rectal pain, LLQ pain. TECHNIQUE: Imaging Protocol: Axial computed tomography images with coronal and sagittal reformatted images were created and reviewed CONTRAST MATERIAL: Intravenous: Omnipaque 350 Contrast volume:100 ml Oral: yes no COMPARISON: CT CT THORAX ABD/PEL CTA from 09/10/2020 FINDINGS: ABDOMEN and PELVIS: Lung Bases: No acute findings. Liver: Normal density. No suspicious mass. Gallbladder and biliary tract: No radiodense calculus. No wall thickening or pericholecystic fluid. No biliary dilation. Pancreas: Normal density. No abnormal calcifications or inflammatory process. No evidence of mass. Spleen: Normal. Kidneys: Normal size, contour and axis. No radiodense stones. No obstructive uropathy. Stable simple cyst at the medial border of the right kidney. Stable simple cyst posterior left kidney. No suspicious masses seen. Adrenal glands: No masses seen. Vasculature: Abdominal aorta non-dilated. No significant atherosclerotic changes. Circumaortic left renal vein. Soft tissues: Unremarkable. Bladder: No gross wall thickening. No calculi.No focal mass. Bowel: No obstruction. No bowel wall thickening. The appendix not seen. Normal quantity of stool. No evidence of perianal or perirectal abscess. Peritoneal cavity: No ascites. No focal collection. No mesenteric inflammatory response. No free air. Bones: Stable compression fracture T10. Prominent osteophytes some in the lower thoracic spine. L5 spondylolysis and grade 1 spondylolisthesis is again noted. Reproductive organs: Unremarkable. Lymph nodes: No pathologically enlarged lymph nodes. IMPRESSION:: No acute abnormality in the abdomen or pelvis. RADIATION DOSE DELIVERED: 870.45mGy.cm Total DLP DATA REPOSITORY: All CT scans at this facility are submitted to the National Radiology Data Registry (NRDR) Dose Index Registry (DIR) with the [employer] (A[employer]). RADIATION OPTIMIZATION: All CT scans at this facility use at least one of these dose optimization techniques: automated exposure control; mA and/or kV adjustment per patient size (includes targeted exams where dose is matched to clinical indication); or iterative reconstruction.
[2025-10-26 11:34] LABS: Abs Immature Grans 0.08 10^3/uL (0.0-0.06); HCT 48.0 % (40.0-50.0); HGB 16.6 g/dL (13.5-17.5); Immature Grans % 0.6 %; MCH 29.1 pg (27.0-33.0); MCHC 34.6 % (32.0-36.0); MCV 84 fL (80-95); MPV 10.1 fL (8.0-11.0); Platelet Count 372 10^3/uL (130-400); RBC 5.70 10^6/uL (4.36-5.78); RDW 12.6 % (11.8-14.1); RDW-SD 38.1 fL; WBC 13.98 10^3/uL (4.4-10.8)
[2025-10-26] MEDS: Normal Saline Flush 10 ML SYR IVP ×2 (11:37→14:36)
[2025-10-26] MEDS: Omnipaque 350 MG/ML 500 ML BTL-Imaging package IJ (11:37)
[2025-10-26] MEDS: Normal Saline - Diluent 50 ML VIAL IJ (11:37)
[2025-10-26 12:23] LABS: Lipase 25 U/L (<53)
[2025-10-26 12:25] LABS: ALT 16 U/L (10-49); AST 15 U/L (<34); Albumin 4.8 g/dL (3.2-5.0); Alkaline Phosphatase 97 U/L (46-116); Anion Gap 10.3 mmol/L (3-11); BUN 16 mg/dL (9-23); Bilirubin, Total 0.6 mg/dL (0.2-1.2); CO2 23.7 mmol/L (20.0-31.0); Calcium 9.8 mg/dL (8.3-10.6); Chloride 106 mmol/L (98-107); Glucose 97 mg/dL (74-106); Potassium 3.9 mmol/L (3.5-5.1); Sodium 140 mmol/L (136-145); Total Protein 7.9 g/dL (5.7-8.2)
[2025-10-26] MEDS: Amoxicillin 875/Clav. 125 TAB PO (12:43)
[2025-10-26] MEDS: Cyclobenzaprine 10 MG TAB PO (13:13)
[2025-10-26 13:25] LABS: Glucose Negative (Negative)
--- NOTE | 2025-10-26 13:59 | W.ED.GENAD ---
Discharge Plan Disposition Patient Disposition: Home Condition: Stable Discharge Details Clinical Impression: Pain in rectum, Rectal fissure, Left lower quadrant abdominal pain Primary Care Provider: Jacob Pop ED Provider: Sinan Xiong Home Meds and New Rx's Prescriptions: New docusate sodium [Colace] 100 mg capsule 100 mg PO BID Qty: 60 0RF hydrocortisone [Anusol-HC] 2.5 % cream with perineal applicator 1 applic SC BID-QID PRNQty: 30 0RF amoxicillin-pot clavulanate 875-125 mg tablet 1 tab PO BID Qty: 13 0RF lidocaine 5 % ointment 1 applic topical BID PRNQty: 30 0RF Continued omeprazole 40 mg capsule,delayed release(DR/EC) 40 mg PO ONCE lisinopril-hydrochlorothiazide 20-25 mg tablet 1 tab PO DAILY Qty: 90 3RF trazodone 50 mg tablet 50 mg PO QHS PRN (Reason: sleep) Qty: 60 2RF cyclobenzaprine 10 mg tablet See Rx Instructions .ROUTE .COMPLEX Qty: 60 0RF Dose Instruction: TAKE ONE TABLET BY MOUTH THREE TIMES A DAY NEEDED FOR MUSCLE SPASM Rx Instructions: TAKE ONE TABLET BY MOUTH THREE TIMES A DAY NEEDED FOR MUSCLE SPASM hydroxychloroquine 200 mg tablet 400 mg PO DAILY Patient Comments: TAKE TWO TABLETS BY MOUTH EVERY DAY Discontinued oxycodone 10 mg tablet 10 mg PO BID MDD 20mg PRN (Reason: pain) Qty: 30 0RF No Action tamsulosin 0.4 mg capsule 0.4 mg PO QHS Qty: 7 0RF Discharge Instructions Instructions: Anal Fissure, Adult ED Additional Instructions: Take antibiotic as prescribed. Use lidocaine cream and Anusol, alternating application every 6-8 hours. Take Colace as prescribed. If you do not have regular soft bowel movement within the next 2 days, start MiraLAX. Dose according to label. Please follow-up with general surgery early next week. Please follow-up with your primary care physician. Return to the emergency department immediately for any worsening or new concerning symptoms. Stand Alone Forms: Portal Information Referrals: Jacob Pop, DIRECTOR OF AGRICULTURE [Primary Care Provider, Medicine] Nora Louise MD [ [facility] STAFF PHYSICIAN, Surgery] Discharge Data Discharge Date/Time-TO BE ENTERED AT DEPARTURE: 10/26/25 14:45 HPI General Date/Time Provider Initiated Documentation: 10/26/25 11:12. Limitations to Documentation: no limitations. Information obtained by: patient. HPI Narrative: 60-year-old male with remote history of rectal fissure, hemorrhoids, here with for with rectal pain and bleeding for the past 2-3 days, likely due to recent constipation and straining. Reports back pain for 6 months and urinary difficulties for 4 months. He is seeing a back specialist for this and there is plan for outpatient surgery scheduled for November. Related Data Home Medications ?Medication ?Instructions ?Recorded ?Confirmed hydroxychloroquine 200 mg tablet 400 mg PO DAILY 08/12/24 10/26/25 lisinopril 20 1 tab PO DAILY #90 tabs 11/16/24 10/26/25 mg-hydrochlorothiazide 25 mg tablet omeprazole 40 mg capsule,delayed 40 mg PO ONCE 11/20/24 10/26/25 release trazodone 50 mg tablet 50 mg PO QHS PRN sleep #60 tabs 05/23/25 10/26/25 amoxicillin 875 mg-potassium 1 tab PO BID #13 tabs 10/26/25 clavulanate 125 mg tablet cyclobenzaprine 10 mg tablet See Rx Instructions .Route 10/26/25 10/26/25 .COMPLEX #60 tabs docusate sodium 100 mg capsule 100 mg PO BID #60 caps 10/26/25 (Colace) hydrocortisone 2.5 % topical cream 1 applic SC BID-QID PRN #30 grams 10/26/25 with perineal applicator (Anusol-HC) lidocaine 5 % topical ointment 1 applic topical BID PRN #30 grams 10/26/25 tamsulosin 0.4 mg capsule 0.4 mg PO QHS #7 caps 10/31/25 10/31/25 Previous Rx's ?Medication ?Instructions ?Recorded lisinopril 20 1 tab PO DAILY #90 tabs 11/16/24 mg-hydrochlorothiazide 25 mg tablet trazodone 50 mg tablet 50 mg PO QHS PRN sleep #60 tabs 05/23/25 amoxicillin 875 mg-potassium 1 tab PO BID #13 tabs 10/26/25 clavulanate 125 mg tablet cyclobenzaprine 10 mg tablet See Rx Instructions .Route 10/26/25 .COMPLEX #60 tabs docusate sodium 100 mg capsule 100 mg PO BID #60 caps 10/26/25 (Colace) hydrocortisone 2.5 % topical cream 1 applic SC BID-QID PRN #30 grams 10/26/25 with perineal applicator (Anusol-HC) lidocaine 5 % topical ointment 1 applic topical BID PRN #30 grams 10/26/25 tamsulosin 0.4 mg capsule 0.4 mg PO QHS #7 caps 10/31/25 Allergies Allergy/AdvReac Type Severity Reaction Status Date / Time shellfish derived Allergy Severe Anaphylaxis Verified 10/31/25 11:12 General Stated Complaint: Abd Prob ALMAZ: 3 Review of Systems All systems reviewed & are unremarkable except as noted in HPI and below Constitutional Constitutional: Denies fever(s) Exam Const General: cooperative, uncomfortable and no acute distress HENMT Mouth: moist mucous membranes Eyes Conjunctivae: normal conjunctivae Sclera: normal sclerae Resp Auscultation: clear to auscultation bilaterally, no rales, no rhonchi and no wheezes Cardio Rate: regular rate and not tachycardic Rhythm: regular rhythm GI Palpation: soft, not firm, no guarding, no masses, not rigid and tender in the LLQ Rectal Exam: visual inspection normal and No hemorrhoids Skin General skin exam: no rashes or lesions noted Neuro General: patient alert, patient awake, patient oriented x3 and tone normal Extrem General: no edema Psych Appearance: grossly normal Mental Status: mental status grossly normal Course Vital Signs Vital signs: Vital Signs Temperature 36.8 C 10/26/25 10:53 Pulse 100 H 10/26/25 10:53 Respiratory Rate 16 10/26/25 10:53 Blood Pressure 169/103 H 10/26/25 10:53 Pulse Oximetry 96 10/26/25 10:53 Temperature 36.8 C 10/26/25 11:13 Temperature Source Oral 10/26/25 11:13 Pulse 83 10/26/25 13:10 Pulse 85 10/26/25 13:10 Respiratory Rate 31 H 10/26/25 13:10 Blood Pressure 141/95 H 10/26/25 12:45 Blood Pressure Mean 111 10/26/25 12:45 Blood Pressure Position Sitting 10/26/25 11:13 Pulse Oximetry 99 10/26/25 13:10 Oxygen Delivery Method Room Air 10/26/25 11:13 Oxygen Flow Rate 0 10/26/25 11:13 Pain Level 8 10/26/25 13:14 Lab/Test Results Lab/Test Results: Laboratory Tests Range/Units 10/26/25 10/26/25 11:11 13:00 WBC (4.4-10.8) 10^3/uL 13.98 H RBC (4.36-5.78) 10^6/uL 5.70 Hgb (13.5-17.5) g/dL 16.6 Hct (40.0-50.0) % 48.0 MCV (80-95) fL 84 MCH (27.0-33.0) pg 29.1 MCHC (32.0-36.0) % 34.6 RDW (11.8-14.1) % 12.6 Plt Count (130-400) 10^3/uL 372 MPV (8.0-11.0) fL 10.1 Immature Gran % % 0.6 Neutrophils % % 72.8 Lymphocytes % % 17.5 Monocytes % % 7.0 Eosinophils % % 1.5 Basophils % % 0.6 Nucleated RBC % (0.0-0.3) % 0.0 Absolute Neutrophils (1.2-6.7) 10^3/uL 10.18 H Absolute Lymphocytes (1.2-3.4) 10^3/uL 2.45 Absolute Monocytes (0.1-0.8) 10^3/uL 0.98 H Absolute Eosinophils (0.0-0.7) 10^3/uL 0.21 Absolute Basophils (0.0-0.2) 10^3/uL 0.08 Sodium (136-145) mmol/L 140 Potassium (3.5-5.1) mmol/L 3.9 Chloride (98-107) mmol/L 106 Carbon Dioxide (20.0-31.0) mmol/L 23.7 Anion Gap (3-11) mmol/L 10.3 BUN (9-23) mg/dL 16 Creatinine (0.73-1.18) mg/dL 0.84 Est GFR (CKD-EPI 2020) (mL/min/1.73m2) 92.82 Glucose (74-106) mg/dL 97 Calcium (8.3-10.6) mg/dL 9.8 Total Bilirubin (0.2-1.2) mg/dL 0.6 AST (<34) U/L 15 ALT (10-49) U/L 16 Alkaline Phosphatase (46-116) U/L 97 Total Protein (5.7-8.2) g/dL 7.9 Albumin (3.2-5.0) g/dL 4.8 Lipase (<53) U/L 25 Urine Color (Yellow) Yellow Urine Clarity (Clear) Clear Urine pH (5-8) 7.0 Ur Specific [place] (1.005-1.025) 1.015 Urine Protein (Neg-Trace) mg/dL Negative Urine Ketones (Negative) mg/dL Negative Urine Blood (Negative) Negative Urine Nitrite (Negative) Negative Urine Bilirubin (Negative) Negative Urine Urobilinogen (Up to 0.2) mg/dL 0.2 Ur Leukocyte Esterase (Negative) Negative Urine Glucose (Negative) mg/dL Negative Medical Decision Making ASSESSMENT AND PLAN Initial Assessment: 60-year-old male with remote history of rectal fissure, hemorrhoids, here with for with rectal pain and bleeding for the past 2-3 days, likely due to recent constipation and straining. Reports back pain for 6 months and urinary difficulties for 4 months. He is seeing a back specialist for this and there is plan for outpatient surgery scheduled for November. Patient has some mild anal inflammation exam and has tenderness in his left lower quadrant with no peritoneal findings. No rectal bleeding. Differential Diagnosis: Rectal fissure, rectal abscess ED Course: - Labs reviewed and leukocytosis of 14,000 noted. - CT scan of abdomen and pelvis to assess for acute surgical pathology interpreted by radiology: - Will consider rectal tear with early infectious process. Will initiate treatment with Augmentin and plan for close outpatient follow-up. Will start stool softeners. - I called and spoke with Dr. Contreras, discussed ED presentation course including diagnostics, she recommends lidocaine 5% cream and Anusol 2.5% ointment, Colace and agrees with Augmentin. She will be happy to see the patient in close follow-up early next week. Clinical Impression: - Rectal fissure or tear -Sitter early rectal infection - Chronic back pain Disposition: Plan for discharge with close outpatient follow-up with general surgery. Follow-Up: General Surgery follow-up next week for reassessment. Patient has scheduled back surgery with Dr. Ramirez at the end of 11/2025. He was encouraged to follow-up with his spinal specialist. This document was written with the assistance of CHERIE Garcia. The patient consented to its use. Lab Data Lab results reviewed: Yes I reviewed the patient's lab results. Labs: Laboratory Tests Range/Units 10/26/25 10/26/25 11:11 13:00 WBC (4.4-10.8) 10^3/uL 13.98 H RBC (4.36-5.78) 10^6/uL 5.70 Hgb (13.5-17.5) g/dL 16.6 Hct (40.0-50.0) % 48.0 MCV (80-95) fL 84 MCH (27.0-33.0) pg 29.1 MCHC (32.0-36.0) % 34.6 RDW (11.8-14.1) % 12.6 Plt Count (130-400) 10^3/uL 372 MPV (8.0-11.0) fL 10.1 Immature Gran % % 0.6 Neutrophils % % 72.8 Lymphocytes % % 17.5 Monocytes % % 7.0 Eosinophils % % 1.5 Basophils % % 0.6 Nucleated RBC % (0.0-0.3) % 0.0 Absolute Neutrophils (1.2-6.7) 10^3/uL 10.18 H Absolute Lymphocytes (1.2-3.4) 10^3/uL 2.45 Absolute Monocytes (0.1-0.8) 10^3/uL 0.98 H Absolute Eosinophils (0.0-0.7) 10^3/uL 0.21 Absolute Basophils (0.0-0.2) 10^3/uL 0.08 Sodium (136-145) mmol/L 140 Potassium (3.5-5.1) mmol/L 3.9 Chloride (98-107) mmol/L 106 Carbon Dioxide (20.0-31.0) mmol/L 23.7 Anion Gap (3-11) mmol/L 10.3 BUN (9-23) mg/dL 16 Creatinine (0.73-1.18) mg/dL 0.84 Est GFR (CKD-EPI 2020) (mL/min/1.73m2) 92.82 Glucose (74-106) mg/dL 97 Calcium (8.3-10.6) mg/dL 9.8 Total Bilirubin (0.2-1.2) mg/dL 0.6 AST (<34) U/L 15 ALT (10-49) U/L 16 Alkaline Phosphatase (46-116) U/L 97 Total Protein (5.7-8.2) g/dL 7.9 Albumin (3.2-5.0) g/dL 4.8 Lipase (<53) U/L 25 Urine Color (Yellow) Yellow Urine Clarity (Clear) Clear Urine pH (5-8) 7.0 Ur Specific [place] (1.005-1.025) 1.015 Urine Protein (Neg-Trace) mg/dL Negative Urine Ketones (Negative) mg/dL Negative Urine Blood (Negative) Negative Urine Nitrite (Negative) Negative Urine Bilirubin (Negative) Negative Urine Urobilinogen (Up to 0.2) mg/dL 0.2 Ur Leukocyte Esterase (Negative) Negative Urine Glucose (Negative) mg/dL Negative PFSH All Active Problems (Updated 10/26/25 @ 14:27 by Sinan Xiong MD) Left lower quadrant abdominal pain (Acute) Rectal fissure (Acute) Pain in rectum (Acute) Low back pain (Acute) Lyme disease (Acute) Screening for malignant neoplasm of skin (Acute) Polyarthralgia (Acute) Daily headache (Acute) Memory loss (Acute) Hypertension (Chronic) GERD (gastroesophageal reflux disease) (Acute) History of tobacco use (Acute) Rectal/anal stenosis (Acute) Umbilical hernia (Acute) Medical History Effusion, left knee DEPO MEDROL 05/20/22 Internal derangement of left knee Depo-Medrol injection: 12/29/2021 Hypertensive urgency Complex tear of medial meniscus of right knee Internal derangement of right knee DEPO MEDROL 07/07/22 Other bursal cyst, left shoulder (05/11/14) Syncope and collapse (10/14/06) seizure; convulsive collapse Fracture of thoracic spine Postherpetic neuralgia Paralabral cyst of shoulder Back pain Hand paresthesia Neck pain Shoulder pain Cervical spinal stenosis cervical spine fusion 2006-Dr. Christian C4 right foraminotomy Dr Christian 03/31 Depression Degenerative disc disease, lumbar H/O hemorrhoids Osteomyelitis of lower leg (10/14/05) foot Migraine Lower urinary tract symptoms (LUTS) (11/29/15) Hypertension History of alcoholism and drug abuse Gastroesophageal reflux disease 1. H/O acute gastritis (alcoholic) 2. H.H. Depressive disorder Chronic obstructive lung disease pt. disagrees, unsure where this came come Anxiety GERD (gastroesophageal reflux disease) HTN (hypertension) Surgical History Status post arthroscopy of right knee (09/29/22) Partial medial meniscectomy and chondromalacia History of hemorrhoidectomy (01/22/16) History of spinal fusion Status post tonsillectomy and adenoidectomy History of esophagogastroduodenoscopy (EGD) (~10/2021) History of umbilical hernia repair S/P colonoscopy (~01/04/19) S/P hemorrhoidectomy Spinal Fusion (~2006) Family History Other Adopted Social History Smoking/Tobacco Use Status: Former Tobacco Use Quit Date: 11/15/15 Tobacco: How many years used: 15 Smoking risk assessment performed?: Yes Alcohol Intake: former Drug use: Never Substance use type: does not use Household members: spouse Housing: house Number of Children: 4 number of grandchildren: 5 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
[2025-10-26] MEDS: Ketorolac 15 MG/ML VIAL IVP (14:35)
[2025-10-26] MEDS: Acetaminophen 325 MG TAB 650 MG PO (14:36)
== END 2025-10-26 14:45 | disposition home or self-care (01) ==
PROVIDERS: Emergency Provider Student in an Organized Health Care Education/Training Program; PCP Nurse Practitioner Family
DX: R10.32 Left lower quadrant pain (principal); K60.2 Anal fissure, unspecified; K62.89 Other specified diseases of anus and rectum
CPT/HCPCS: 99284; 99285; 96374; 36415; 80053; 83690; 74177; 81003; 85025; J1885